=== PATIENT | female | born 1945 | race Caucasian/White ===

== ENCOUNTER → 2019-03-27 14:52 | Outpatient (BNVA) | payer MEDICARE, BC, SELFPAY | PROVIDERS: Family Provider Family Medicine; PCP Family Medicine; Referring Provider Family Medicine; Visit Provider Podiatrist Foot & Ankle Surgery | DX: M79.671 Pain in right foot (principal); M21.611 Bunion of right foot | CPT/HCPCS: 73630 ==

== ENCOUNTER → 2019-11-20 10:55 | Outpatient (BNVA) | payer MEDICARE, BC, SELFPAY | PROVIDERS: Family Provider Family Medicine; PCP Family Medicine; Referring Provider Dermatology; Visit Provider Dermatology | DX: Z12.83 Encounter for screening for malignant neoplasm of skin (principal); D22.9 Melanocytic nevi, unspecified; L82.1 Other seborrheic keratosis | CPT/HCPCS: 99203 ==

== ENCOUNTER 2020-01-23 08:00 | Emergency (ER) | payer MEDICARE, BC, SELFPAY ==
--- NOTE | 2020-01-23 08:09 | XR_ITS ---
WS: [id number] XR chest 1V portable [id number] REASON FOR EXAM: syncope FINDINGS: No prior examination for comparison. Mild tortuosity thoracic aorta. The heart is at the upper limits of normal in size. There are interstitial changes in both lung bases and a vague area of density in the periphery of the right midlung field. No findings of pleural fluid. Moderate to severe degenerative spondylosis in the mid and lower thoracic spine. XR/XR chest 1V portable [id number] IMPRESSION: Infiltrative changes of unknown chronicity. While the lower lobe changes may be chronic the area in the periphery of the right midlung is of concern for an ea rly pneumonitis.
--- NOTE | 2020-01-23 08:10 | ECG_ITS ---
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
[2020-01-23 08:38] VITALS: BP 173/79; PULSE 66; RESP 18; TEMP 37.7; O2SAT 89; BMI 38.9
[2020-01-23 08:47] LABS: Basophils % 0.2 %; Hematocrit 42.9 % (37.0-47.0); Lymphocytes # 1.3 10^3/uL (0.8-4.8); Mean Corpuscular HGB Conc 32.6 g/dL (30.0-36.0); Mean Corpuscular Hemoglobin 28.7 pg (28.0-34.0); Mean Corpuscular Volume 88.1 fL (81-99); Mean Platelet Volume 10.7 fL (7.4-10.4); Monocytes # 0.6 10^3/uL (0.2-0.9); Monocytes % 9.7 %; Neutrophils # 3.91 10^3/uL (1.8-7.7); Neutrophils % 67.9 %; Nucleated Red Blood Cells % 0 %; Platelet Count 187 10^3/cmm (130-400); Red Blood Count 4.87 10^6/uL (4.1-5.3); Red Cell Distribution Width 13.5 % (12.1-15.1); White Blood Count 5.8 10^3/uL (4.0-10.0)
[2020-01-23 08:48] VITALS: BP 173/79; PULSE 61; RESP 16; TEMP 37.6; O2SAT 95
--- NOTE | 2020-01-23 08:48 | PC.NURSE ---
Denies pain, generalized weakness.
[2020-01-23 08:58] LABS: Alanine Aminotransferase 33 U/L (0-33); Albumin Level 3.9 g/dL (3.5-5.2); Alkaline Phosphatase 93 IU/L (35-105); Aspartate Amino Transferase 36 U/L (0-32); Blood Urea Nitrogen 7 mg/dL (8-23); C Reactive Protein 17.1 mg/L (0.0-4.9); Calcium 8.4 mg/dL (8.5-10.5); Carbon Dioxide 25 mmol/L (22-29); Chloride 101 mmol/L (98-107); Globulin 2.6 g/dL (1.3-4.6); Glucose 125 mg/dL (65-115); Osmolality Calculated 283 mOsm/kg (285-295); Sodium 137 mmol/L (136-145); Total Bilirubin 0.4 mg/dL (0.15-1.2); Total Protein 6.5 g/dL (6.6-8.7)
[2020-01-23 09:00] LABS: Troponin(5th) Baseline 7 ng/L (0-10)
[2020-01-23 09:17] VITALS: BP 170/83; PULSE 57; RESP 16; O2SAT 95
--- NOTE | 2020-01-23 09:18 | PC.NURSE ---
Resting with light off. No acute distress. Continue to monitor
[2020-01-23 09:45] LABS: Erythrocyte Sedimentation Rate 22 mm/hr (0-15)
--- NOTE | 2020-01-23 10:00 | ED_ITS ---
HPI - SOB/Dyspnea General: Chief Complaint: Shortness of Breath/Dyspnea Stated Complaint: covid +/nausea/sore throat Time Seen by Provider: 01/23/20 08:03 History of Present Illness: HPI Narrative: 75-year-old female presents to the emergency room with complaints of testing positive for Covid 1 week ago. She is having increasing shortness of breath. Also had nausea vomiting sore throat. She is not had any diarrhea. No dysuria urgency or frequency. Denies any chest pain she has had a cough but has not been productive at all. She does continue to have low-grade fever with this as well. MD elicited complaint: shortness of breath and cough Pertinent past history: diabetes and other (Hypertension, obesity) Onset (ago): week(s) (1) Context: recent illness (Diagnosed with COVID-19 7 days ago) Timing: constant Severity: moderate Exacerbating factors: exertion and coughing Relieving factors: oxygen and rest Known history of: diabetes and other (Hypertension) Associated symptoms: Deny abdominal pain, chest congestion, chest pain, cough, diaphoresis, dizziness, extremity pain, fever(s), hemoptysis, lightheadedness, myalgias, nausea, orthopnea, palpitations, paresthesias, polydipsia, polyuria, rash, sense of impending doom, syncope or vomiting Treatment prior to arrival: none Review of Systems Const: Denies: fever(s) or diaphoresis ENMT: Denies: throat pain, ear or mastoid pain, nasal discharge or nasal congestion Card: Denies: chest pain, palpitations, lightheadedness, syncope or orthopnea Resp: Denies: hemoptysis or chest congestion GI: Denies: abdominal pain, nausea or vomiting : Denies: flank pain, difficulty voiding, dysuria, urinary frequency or urinary urgency Musc: Denies: extremity pain Skin/Breast: Denies: rash or pruritus Neuro: Denies: dizziness Endo: Denies: polyuria or polydipsia PFS ED PFSH: Medical History (Updated 01/23/20 @ 11:56 by Raj Wren DO) Back pain CAD (coronary artery disease) Diabetes mellitus Dyslipidemia Hypertension Surgical History S/P coronary artery stent placement Family History Other Cancer Diabetes Myocardial infarction Social History Smoking and tobacco status: never smoked Second hand smoke exposure: Yes Alcohol intake: never Additional social history: 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) Physical Exam Const: COMMON NORMALS: no acute distress GENERAL APPEARANCE: cooperative and comfortable ORIENTATION/CONSCIOUSNESS: Yes awake, Yes oriented to person, Yes oriented to place and Yes oriented to time HENMT: COMMON NORMALS: normocephalic, atraumatic and hearing grossly normal bilaterally HEAD & SCALP: normocephalic and atraumatic Neck/C-Spine: COMMON NORMALS: no JVD Resp: COMMON NORMALS: normal respiratory effort, No retractions, No use of accessory muscles and clear to auscultation bilaterally AUSCULTATION: clear to auscultation bilaterally Cardio: COMMON NORMALS: no JVD, regular rate, regular rhythm and No murmurs present (Cardio) RATE: regular rate RHYTHM: regular rhythm GI: COMMON NORMALS: Soft to palpation and No hepatosplenomegaly present AUSCULTATION: Yes normoactive bowel sounds PALPATION: Yes Soft to palpation, No Tenderness to palpation present (GI), No Guarding due to palpation present (GI) and Yes No hepatosplenomegaly present Extremity: COMMON NORMALS: normal to inspection, capillary refill normal, no clubbing, cyanosis or edema, no calf tenderness and no pedal edema Neuro: SENSORIUM/ORIENTATION: Yes oriented to person, Yes oriented to place and Yes oriented to time Skin: COMMON NORMALS: no rashes or lesions noted GENERAL SKIN EXAM: no rashes or lesions noted Course Vital Signs: Vital signs: Vital Signs Temperature 99.7 F H 01/23/20 08:48 Pulse Rate 56 L 01/23/20 11:25 Respiratory Rate 18 01/23/20 11:25 Blood Pressure 161/84 01/23/20 11:25 Pulse Oximetry 97 01/23/20 11:25 MDM - SOB/Dyspnea MDM Narrative: Medical decision making narrative: Reviewed findings with the patient. Consistent with Covid pneumonitis. At this point she is doing well on supplemental oxygen we will discharge her home on supplemental oxygen she already has an O2 sat monitor at home. Advised to return if she has worsening symptoms will case management make a follow-up for 2 days from now. Lab Data: Labs: Lab Results 01/23/20 01/23/20 01/23/20 Range/Units 08:38 08:38 08:38 WBC 5.8 (4.0-10.0) 10^3/ uL RBC 4.87 (4.1-5.3) 10^6/u L Hgb 14.0 (11.5-15.3) g/dL Hct 42.9 (37.0-47.0) % MCV 88.1 (81-99) fL MCH 28.7 (28.0-34.0) pg MCHC 32.6 (30.0-36.0) g/dL RDW 13.5 (12.1-15.1) % Plt Count 187 (130-400) 10^3/c mm MPV 10.7 H (7.4-10.4) fL Neut % (Auto) 67.9 % Lymph % (Auto) 22.0 % [facility] % (Auto) 9.7 % Eos % (Auto) 0.0 % Baso % (Auto) 0.2 % Neut # (Auto) 3.91 (1.8-7.7) 10^3/u L Lymph # (Auto) 1.3 (0.8-4.8) 10^3/u L [facility] # (Auto) 0.6 (0.2-0.9) 10^3/u L Eos # (Auto) 0.0 (0.0-0.8) 10^3/u L Baso # (Auto) 0.0 (0.0-0.1) 10^3/u L Nucleated RBC % (a uto) 0 % Nucleated RBCs # 0.0 /100WBC ESR 22 H (0-15) mm/hr D-Dimer 0.53 (0-0.59) ug/mIFE U Sodium (136-145) mmol/L Potassium (3.5-5.1) mmol/L Chloride (98-107) mmol/L Carbon Dioxide (22-29) mmol/L Anion Gap (5-19) BUN (8-23) mg/dL Creatinine (0.5-0.9) mg/dL GFR Calculation Glucose (65-115) mg/dL Calculated Osmolal ity (285-295) mOsm/k g Lactate (0.5-2.2) mmol/L Calcium (8.5-10.5) mg/dL Total Bilirubin (0.15-1.2) mg/dL AST (0-32) U/L ALT (0-33) U/L Alkaline Phosphata se (35-105) IU/L Troponin T Baselin e (0-10) ng/L Troponin T 120 Min havasupai (0-10) ng/L Delta Troponin T (0-10) ABS# C-Reactive Protein (0.0-4.9) mg/L Total Protein (6.6-8.7) g/dL Albumin (3.5-5.2) g/dL Globulin (1.3-4.6) g/dL 01/23/20 01/23/20 01/23/20 Range/Units 08:38 08:38 08:38 WBC (4.0-10.0) 10^3/ uL RBC (4.1-5.3) 10^6/u L Hgb (11.5-15.3) g/dL Hct (37.0-47.0) % MCV (81-99) fL MCH (28.0-34.0) pg MCHC (30.0-36.0) g/dL RDW (12.1-15.1) % Plt Count (130-400) 10^3/c mm MPV (7.4-10.4) fL Neut % (Auto) % Lymph % (Auto) % [facility] % (Auto) % Eos % (Auto) % Baso % (Auto) % Neut # (Auto) (1.8-7.7) 10^3/u L Lymph # (Auto) (0.8-4.8) 10^3/u L [facility] # (Auto) (0.2-0.9) 10^3/u L Eos # (Auto) (0.0-0.8) 10^3/u L Baso # (Auto) (0.0-0.1) 10^3/u L Nucleated RBC % (a uto) % Nucleated RBCs # /100WBC ESR (0-15) mm/hr D-Dimer (0-0.59) ug/mIFE U Sodium 137 (136-145) mmol/L Potassium 4.0 (3.5-5.1) mmol/L Chloride 101 (98-107) mmol/L Carbon Dioxide 25 (22-29) mmol/L Anion Gap 15.0 (5-19) BUN 7 L (8-23) mg/dL Creatinine 0.7 (0.5-0.9) mg/dL GFR Calculation Not Reportable Glucose 125 H (65-115) mg/dL Calculated Osmolal ity 283 L (285-295) mOsm/k g Lactate 1.4 (0.5-2.2) mmol/L Calcium 8.4 L (8.5-10.5) mg/dL Total Bilirubin 0.4 (0.15-1.2) mg/dL AST 36 H (0-32) U/L ALT 33 (0-33) U/L Alkaline Phosphata se 93 (35-105) IU/L Troponin T Baselin e 7 (0-10) ng/L Troponin T 120 Min havasupai (0-10) ng/L Delta Troponin T (0-10) ABS# C-Reactive Protein 17.1 H (0.0-4.9) mg/L Total Protein 6.5 L (6.6-8.7) g/dL Albumin 3.9 (3.5-5.2) g/dL Globulin 2.6 (1.3-4.6) g/dL 11/25/20 Range/Units 11:20 WBC (4.0-10.0) 10^3/ uL RBC (4.1-5.3) 10^6/u L Hgb (11.5-15.3) g/dL Hct (37.0-47.0) % MCV (81-99) fL MCH (28.0-34.0) pg MCHC (30.0-36.0) g/dL RDW (12.1-15.1) % Plt Count (130-400) 10^3/c mm MPV (7.4-10.4) fL Neut % (Auto) % Lymph % (Auto) % [facility] % (Auto) % Eos % (Auto) % Baso % (Auto) % Neut # (Auto) (1.8-7.7) 10^3/u L Lymph # (Auto) (0.8-4.8) 10^3/u L [facility] # (Auto) (0.2-0.9) 10^3/u L Eos # (Auto) (0.0-0.8) 10^3/u L Baso # (Auto) (0.0-0.1) 10^3/u L Nucleated RBC % (a uto) % Nucleated RBCs # /100WBC ESR (0-15) mm/hr D-Dimer (0-0.59) ug/mIFE U Sodium (136-145) mmol/L Potassium (3.5-5.1) mmol/L Chloride (98-107) mmol/L Carbon Dioxide (22-29) mmol/L Anion Gap (5-19) BUN (8-23) mg/dL Creatinine (0.5-0.9) mg/dL GFR Calculation Glucose (65-115) mg/dL Calculated Osmolal ity (285-295) mOsm/k g Lactate (0.5-2.2) mmol/L Calcium (8.5-10.5) mg/dL Total Bilirubin (0.15-1.2) mg/dL AST (0-32) U/L ALT (0-33) U/L Alkaline Phosphata se (35-105) IU/L Troponin T Baselin e (0-10) ng/L Troponin T 120 Min havasupai 7.91 (0-10) ng/L Delta Troponin T 0.91 (0-10) ABS# C-Reactive Protein (0.0-4.9) mg/L Total Protein (6.6-8.7) g/dL Albumin (3.5-5.2) g/dL Globulin (1.3-4.6) g/dL Discharge Plan Discharge Patient Disposition: Home Clinical Impression: COVID-19 virus infection, CAD (coronary artery disease), Diabetes mellitus, Hypertension Condition: Stable Prescriptions: New promethazine 25 mg tablet 25 mg PO Q6H PRN (Reason: nausea and vomiting) Qty: 20 RF: 0 No Action aspirin [Adult Low Dose Aspirin] 81 mg tablet,delayed release (DR/EC) 81 mg PO DAILY RF: 0 metformin 500 mg tablet extended release 24 hr 500 mg PO DAILY RF: 0 acetaminophen [Tylenol Extra Strength] 500 mg tablet 500 mg PO Q4H PRNRF: 0 calcium-mag oxide-vitamin D3 250-125-100 mg-mg-unit capsule 1 cap PO BID RF: 0 lisinopril 20 mg tablet 20 mg PO DAILY RF: 0 fluticasone propionate [Flonase Allergy Relief] 50 mcg/actuation spray,suspension 1 spray INTRANASAL BID PRNRF: 0 carvedilol 6.25 mg tablet 6.25 mg PO BID RF: 0 Discharge Orders: Discharge Order (Routine); Ordered 01/23/20 Ordered By: Raj Wren Other Ambulatory Orders: DME: Oxygen (Order) Location: None Selected Ordered By: Raj Wren Referrals: Dayday Cerda MD [Primary Care Provider] - Coding Level of Care Code ED Plunger Scoop Operator for Chg Fwd Exam Comprehensive
[2020-01-23 10:01] LABS: D Dimer 0.53 ug/mIFEU (0-0.59)
--- NOTE | 2020-01-23 10:10 | ECG_ITS ---
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
[2020-01-23 10:13] LABS: Lactate (Lactic Acid level) 1.4 mmol/L (0.5-2.2)
--- NOTE | 2020-01-23 10:14 | CT_ITS ---
WS: [id number] CT CHEST ANGIOGRAPHY WITH REFORMATS HISTORY: Shortness of breath/ Covid pneumonitis TECHNIQUE: Contiguous axial images are obtained through the chest during arterial injection of intrav enous contrast. Images are reconstructed to evaluate the pulmonary arteries. MIP imaging also reviewe d. All CT scans at [facility] use at least one of these dose optimization techniques: aut omated exposure control; mA and/or kV adjustment per patient size (includes targeted exams where dose is matched to clinical indication); or iterative reconstruction. CONTRAST: Omnipaque 350; 95 mL IV. DLP: 1177.83 mGy.cm COMPARISON: None available. Suboptimal opacification of the pulmonary arteries due to poor injection timing. Centrally there is n o pulmonary embolism. Opacification becomes limited beyond the segmental branches. No pulmonary embol ism is identified. Normal size pulmonary artery. Normal size aorta. Moderate enlargement of the heart chambers. LEFT anterior descending coronary artery stent is present. No pericardial or pleural effus ions. Scattered areas of groundglass attenuation are ill-defined in a peripheral distribution. There is a b asilar predominance. Some of the groundglass attenuations are becoming more consolidated. Numerous indeterminate size mediastinal and hilar lymph nodes. Largest lymph node at the LEFT hilum m easures 10 mm in short axis diameter. These are probably reactive. Small hiatal hernia. Mild hepatomegaly. Mild increase in the thoracic kyphosis. Osteopenia. No osteoblastic or osteolytic bone disease. CT/CT angio chest PE protcl [id number] IMPRESSION: 1. Suboptimal opacification of pulmonary arteries. Centrally there is no pulmo nary embolism. 2. Multi lobar groundglass opacifications in a distribution consistent with Co vid 19. 3. Indeterminate mediastinal and hilar adenopathy. 4. Mild cardiomegaly.
--- NOTE | 2020-01-23 10:42 | PC.NURSE ---
No pain, generalized weakness
[2020-01-23 11:25] VITALS: BP 161/84; PULSE 56; RESP 18; O2SAT 97
[2020-01-23 11:48] LABS: Troponin 5 2HR 7.91 ng/L (0-10); Troponin 5 2HR Delta 0.91 ABS# (0-10)
[2020-01-23] MEDS: iohexol 350 mg/mL 100 mL Btl IV (12:00)
[2020-01-23 12:34] VITALS: O2SAT 88; O2SAT 89; O2SAT 94
[2020-01-23 13:03] VITALS: BP 171/78; PULSE 63; RESP 18; O2SAT 94
--- NOTE | 2020-01-23 13:31 | DCPLANNER ---
it communications manager was asked to schedule a follow up appointment for patient with primary care and home O2. it communications manager called patients primary care physician, spoke with Jackelyn, gave clinic patients appointment information. A follow up appointment was scheduled for Tuesday, January 28, 2020 at 3:[address] Cerda. it communications manager informed patient of the scheduled appointment. it communications manager spoke with patient thru door about what provider patient would want to use for her home oxygen needs. Patient stated could use [facility] case therapist signed [facility] due to patient being COVID positive. it communications manager faxed patients information to [employer] company will bring oxygen to patients room.
--- NOTE | 2020-01-30 14:30 | DCPLANNER ---
Patient had a follow up appointment scheduled with Dr. Cerda at [facility] on 01.27.20 - patient did attend appointment.
== END 2020-01-23 15:36 | disposition home or self-care (01) ==
PROVIDERS: Nurse Practitioner Family; Emergency Provider Family Medicine; PCP Family Medicine
DX: U07.1 COVID-19 (principal); I25.10 Atherosclerotic heart disease of native coronary artery without angina pectoris; E11.9 Type 2 diabetes mellitus without complications; I10 Essential (primary) hypertension; Z79.82 Long term (current) use of aspirin; E78.5 Hyperlipidemia, unspecified; Z77.22 Contact with and (suspected) exposure to environmental tobacco smoke (acute) (chronic)
CPT/HCPCS: 12345; 71045; 71275; 80053; 83605; 84484; 85025; 85378; 85651; 86140; 93005; 99283; 99284; Q9967

== ENCOUNTER 2020-02-10 14:27 | Emergency (ER) | payer MEDICARE, BC, SELFPAY ==
--- NOTE | 2020-02-10 14:31 | ECG_ITS ---
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
--- NOTE | 2020-02-10 14:31 | XRR_ITS ---
PROCEDURE INFORMATION: Exam: XR Chest, 1 View Exam date and time: 02/10/2020 2:32 PM Age: 74 years old Clinical indication: Chest pain; Prior surgery; Surgery type: Stent; Additional info: Cp TECHNIQUE: Imaging protocol: XR of the chest Views: 1 view. COMPARISON: CR XR chest 1V portable [id number] 01/23/2020 8:13 AM FINDINGS: Lungs: A large amount of overlying soft tissue in this patient makes evaluation of the lung bases sub optimal. There are hazy bibasilar opacities. There is a 14 mm hazy opacity at the lateral aspect of the right mid lung field which appears less prominent when compared to the prior study. Pleural space: Unremarkable. No pleural effusion. No pneumothorax. Heart/Mediastinum: Unremarkable. No cardiomegaly. Bones/joints: Unremarkable. XR/XR chest 1V portable [id number] IMPRESSION: 1. A large amount of overlying soft tissue in this patient makes evaluation of the lung bases sub optimal. There are hazy bibasilar opacities which may be a result of the overlying soft tissue. Pneumonia cannot be excluded. 2. There is a 14 mm hazy opacity at the lateral aspect of the right mid lung field which appears less prominent when compared to the prior study. Differential includes scar tissue and/or resolving pneumonia.
[2020-02-10 14:40] VITALS: BP 180/88; PULSE 71; RESP 14; TEMP 36.3; O2SAT 96; BMI 37.3
--- NOTE | 2020-02-10 14:56 | ED_ITS ---
HPI - Chest Pain General: Chief Complaint: Chest Pain Stated Complaint: BP 217/101, DIARRHEA, CP Time Seen by Provider: 02/10/20 14:52 Source: patient Mode of arrival: ambulatory Limitations: no limitations History of Present Illness: HPI narrative: Very pleasant nondistressed 74-year-old female presents to the emergency department for concerns of chest tightness that is midsternal she states it is not severe currently. She states she been sitting in her recliner and felt like her head was swimming and checked her blood pressure at home and it was over 200 systolic. Currently it is already come down without intervention. She does have a history of hypertension. She states that her chest has been sore and some shortness of breath ever since being diagnosed with Covid last month she denies fever states that she overall feels like she has recovered from this. We did discuss how the sequelae from this infection can cause chest tightness and persistent shortness of breath as well as tachycardia resulting in potential hypertension. She is not diaphoretic she is again in no acute distress. She agrees with plan to be evaluated she simply wants her heart checked out. Advised if all is well in the emergency department I would like her to keep a blood pressure log and follow-up with primary care for potential echocardiogram secondary to coronavirus effects. Patient voices understanding and agrees. MD complaint: chest discomfort Timing of current episode: constant Onset: during rest Pain location: substernal Pain radiation: none Severity: mild Quality: tightness Context: recent illness Associated symptoms: Reports no associated symptoms; Deny abdominal pain, dyspnea, fever(s), nausea, palpitations or vomiting Risk Factors: Coronary artery disease risk factors: hypertension Review of Systems Const: Denies: fever(s), chills, change in appetite or malaise Eyes: Denies: change in vision, blurry vision, eye discharge or eye redness ENMT: Denies: throat pain, uvular edema, odynophagia, mouth pain, dental pain, nasal congestion or sinus pain Card: Reports: chest pain, lightheadedness and dyspnea on exertion; Denies: palpitations or irregular heart rhythm Resp: Denies: dyspnea, productive cough, wheezing or hemoptysis GI: Denies: abdominal pain, nausea, vomiting, diarrhea, constipation or fecal incontinence : Denies: flank pain, difficulty voiding, dysuria, urinary frequency, urinary urgency or urinary hesitancy Musc: Denies: neck pain, back pain, extremity pain or extremity swelling Skin/Breast: Denies: rash, pruritus, erythema, jaundice or dry skin Neuro: Reports: headache(s); Denies: numbness in extremities, weakness in extremities, sensory changes, lack of coordination or difficulty walking Psych: Denies: anxiety, depression, mood swings, panic attacks, sleeping less, suicidal ideation or homicidal ideation Endo: Denies: polyuria, polydipsia or tired all the time [place]/Lymph: Denies: easy bruising, petechiae or enlarged lymph nodes All/Imm: Denies: urticaria, throat swelling, facial swelling, acute wheezing or seasonal rhinorrhea PFSH ED PFSH: Medical History (Updated 02/10/20 @ 16:06 by Pau Park DO) Back pain CAD (coronary artery disease) Diabetes mellitus Dyslipidemia Hypertension Surgical History S/P coronary artery stent placement Family History Other Cancer Diabetes Myocardial infarction Social History Smoking and tobacco status: never smoked Second hand smoke exposure: Yes Alcohol intake: never Additional social history: 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) Physical Exam Const: COMMON NORMALS: no acute distress, patient oriented x3, no limitations, healthy appearing, alert and well nourished GENERAL APPEARANCE: cooperative, comfortable, well kempt and well developed ORIENTATION/CONSCIOUSNESS: Yes awake, Yes oriented to person, Yes oriented to place and Yes oriented to time HENMT: COMMON NORMALS: normocephalic, atraumatic, hearing grossly normal bilaterally, external ears normal, EAC's normal, TM's normal bilaterally, Normal external nose present, Normal nasal mucous membranes and turbinates present, moist oral mucous membranes, oropharynx normal, dentition normal and gingiva normal HEAD & SCALP: normal to inspection, normocephalic and atraumatic FACE & SINUS: normal facial exam NOSE: Normal external nose present and Normal nasal mucous membranes and turbinates present EXTERNAL EAR: Yes external ears normal EXTERNAL AUDITORY CANAL: EAC's normal TYMPANIC MEMBRANE: TM's normal bilaterally MOUTH: Normal oral and palatal mucosa present, lip normal and tongue normal THROAT: no uvular edema Eye: COMMON NORMALS: Equal, round and reactive pupils present, EOMs intact bilaterally, conjunctivae normal, no scleral icterus and normal visual boss by confrontation GENERAL EYE: appearance normal, both eyes and all related structures and normal light reflex VISUAL ACUITY: Yes acuity normal ALIGNMENT: Yes alignment normal PERIORBITAL: periorbital findings normal EYELID: eyelids normal CONJUNCTIVA: Yes conjunctivae normal SCLERA: sclerae normal PUPIL: Yes Equal, round and reactive pupils present and Yes Pupil accommodation reflex normal DIRECT OPHTHALMOSCOPY: Yes normal light reflex Neck/C-Spine: COMMON NORMALS: full ROM, no lymphadenopathy, supple, no meningeal signs and no JVD GENERAL: Yes normal visual inspection CAROTIDS: Yes normal carotid upstroke CERVICAL SPINE: Yes cervical ROM normal Lymph: LYMPHATIC: no lymphadenopathy noted Chest: COMMONS NORMALS: normal inspection of the chest CHEST: Yes Symmetrical chest wall rise Resp: COMMON NORMALS: normal respiratory effort, No retractions, No use of accessory muscles and clear to auscultation bilaterally EFFORT & INSPECTION: Yes able to speak in complete sentences and Yes symmetric chest movement AUSCULTATION: clear to auscultation bilaterally Cardio: COMMON NORMALS: no JVD, regular rate, regular rhythm, S1 normal heart sound present, S2 normal heart sound present, No murmurs present (Cardio) and Peripheral pulses 2+ throughout RATE: regular rate RHYTHM: regular rhythm HEART SOUNDS: S1 normal heart sound present and S2 normal heart sound present PERIPHERAL PULSES: Peripheral pulses 2+ throughout GI: COMMON NORMALS: Normal to inspection, nondistended, normoactive bowel sounds present and non-tender : COMMON NORMALS: Yes no CVA tenderness BLADDER/KIDNEY EXAM: Yes no CVA tenderness Back/Pelvis: COMMON NORMALS: no CVA tenderness, thoracic and lumbar spine nor mal to inspection, no thoracic nor lumbar tenderness and thoraco-lumbar ROM normal Extremity: COMMON NORMALS: normal to inspection, full ROM, capillary refill normal, no calf tenderness and no pedal edema Neuro: COMMON NORMALS: patient oriented x3, CN's II-XII intact bilaterally, moves all extremities, no focal motor deficits, no sensory deficits noted and gait normal SENSORIUM/ORIENTATION: Yes alert, Yes oriented to person, Yes oriented to place and Yes oriented to time MENINGEAL SIGNS: Yes no meningeal signs SPEECH: speech normal GAIT: Yes Normal gait present MOTOR EXAM: 5/5 motor strength present throughout, Pronator motor function not present and no tremor noted Psych: COMMON NORMALS: mental status grossly normal, Normal thought process present, cooperative, normal affect, speech normal and activity/motor behavior normal APPEARANCE: Yes well kempt SPEECH: Yes normal speech THOUGHT PROCESS: Normal thought process present THOUGHT CONTENT: Yes Normal thought content present INSIGHT: Good insight present (Psych) Skin: COMMON NORMALS: no rashes or lesions noted, no wounds, turgor normal and no jaundice GENERAL SKIN EXAM: no rashes or lesions noted and turgor normal Course ED course: Patient doing well in the department. Initial troponin negative due to duration I do not feel a delta troponin would change disposition. Patient agrees with plan to go home, will provide Ventolin inhaler and zinc and brief course of steroids secondary to bronchitic type picture. Vital Signs: Vital signs: Vital Signs Temperature 97.3 F L 02/10/20 14:40 Pulse Rate 71 02/10/20 14:40 Respiratory Rate 14 02/10/20 14:40 Blood Pressure 180/88 02/10/20 14:40 Pulse Oximetry 96 02/10/20 14:40 MDM - Chest Pain MDM Narrative: Medical decision making narrative: Covid sequelae, pneumonia, bronchitis Lab Data: Labs: Lab Results 02/10/20 02/10/20 02/10/20 Range/Units 15:10 15:10 15:10 WBC 9.8 (4.0-10.0) 10^3/ uL RBC 4.79 (4.1-5.3) 10^6/u L Hgb 13.6 (11.5-15.3) g/dL Hct 42.2 (37.0-47.0) % MCV 88.1 (81-99) fL MCH 28.4 (28.0-34.0) pg MCHC 32.2 (30.0-36.0) g/dL RDW 13.5 (12.1-15.1) % Plt Count 265 (130-400) 10^3/c mm MPV 10.7 H (7.4-10.4) fL Neut % (Auto) 67.7 % Lymph % (Auto) 22.2 % [place] % (Auto) 7.6 % Eos % (Auto) 1.8 % Baso % (Auto) 0.4 % Neut # (Auto) 6.65 (1.8-7.7) 10^3/u L Lymph # (Auto) 2.2 (0.8-4.8) 10^3/u L [place] # (Auto) 0.8 (0.2-0.9) 10^3/u L Eos # (Auto) 0.2 (0.0-0.8) 10^3/u L Baso # (Auto) 0.0 (0.0-0.1) 10^3/u L Nucleated RBC % (a uto) 0 % Nucleated RBCs # 0.0 /100WBC Sodium 141 (136-145) mmol/L Potassium 4.1 (3.5-5.1) mmol/L Chloride 105 (98-107) mmol/L Carbon Dioxide 28 (22-29) mmol/L Anion Gap 12.1 (5-19) BUN 16 (8-23) mg/dL Creatinine 0.7 (0.5-0.9) mg/dL GFR Calculation Not Reportable Calculated Osmolal ity 295 (285-295) mOsm/k g Calcium 9.5 (8.5-10.5) mg/dL Total Bilirubin 0.4 (0.15-1.2) mg/dL AST 22 (0-32) U/L ALT 30 (0-33) U/L Alkaline Phosphata se 94 (35-105) IU/L Troponin T Baselin e 9 (0-10) ng/L Total Protein 6.8 (6.6-8.7) g/dL Albumin 3.8 (3.5-5.2) g/dL Globulin 3.0 (1.3-4.6) g/dL Imaging Data^: CXR: Attestation: I personally reviewed and interpreted this imaging study as follows: My impression: NAD EKG Data^: EKG 1: Attestation: I personally reviewed and interpreted this EKG as follows: EKG interpretation date: 02/10/20 EKG interpretation time: 14:55 Interpretation: Normal sinus rhythm, QRS normal at 73 rate 68 NC interval normal at 171 normal axis Discharge Plan Discharge Clinical Impression: Atypical chest pain Condition: Stable Prescriptions: New albuterol sulfate [ProAir HFA] 90 mcg/actuation HFA aerosol inhaler 2 inh inhalation Q8H PRN (Reason: shortness of breath or wheezing) Qty: 8.5 RF: 0 prednisone 50 mg tablet 50 mg PO DAILY 7 Days Qty: 7 RF: 0 No Action aspirin [Adult Low Dose Aspirin] 81 mg tablet,delayed release (DR/EC) 81 mg PO DAILY@06 RF: 0 fluticasone propionate [Flonase Allergy Relief] 50 mcg/actuation spray,suspension 1 - 2 spray INTRANASAL DAILY PRN (Reason: Allergy Symptoms) RF: 0 carvedilol 6.25 mg tablet 6.25 mg PO BID@,17 RF: 0 promethazine 25 mg tablet 25 mg PO Q6H PRN (Reason: nausea and vomiting) Qty: 20 RF: 0 metformin 500 mg tablet 500 mg PO DAILY@06 RF: 0 nystatin 100,000 unit/mL suspension See Rx Instructions .ROUTE .COMPLEX RF: 0 ondansetron HCl 4 mg tablet 4 mg PO Q6H PRN (Reason: Nausea) RF: 0 Calcium + D 600 mg(1,500mg) -200 unit Tablet 1 tab PO BID@,17 RF: 0 allopurinol 100 mg tablet 100 mg PO DAILY@06 RF: 0 diclofenac sodium 75 mg tablet,delayed release (DR/EC) 75 mg PO BID PRN (Reason: gout pain) RF: 0 zinc 50 mg Tablet 50 mg PO DAILY@06 RF: 0 lisinopril 40 mg tablet 40 mg PO DAILY@06 RF: 0 apple cider vinegar 300 mg Tablet 300 mg PO BID@, RF: 0 [place] 82-004-86-75-20 mg Capsule 1 cap PO BID@, RF: 0 Vitamin D3 125 mcg (5,000 unit) Tablet 125 mcg PO DAILY@06 RF: 0 Probiotic 15 billion cell Capsule, Sprinkle 1 cap PO DAILY@17 RF: 0 Discharge Orders: Discharge ED (Routine); Ordered 02/10/20 Ordered By: Pau [place] Referrals: Dayday Cerda MD [Primary Care Provider] - Discharge Diet: Usual diet Discharge Activity: Resume usual activity Patient Instructions: Chest Pain - Noncardiac Coding Level of Care Code 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
[2020-02-10 15:08] VITALS: BP 194/84; PULSE 76; RESP 19; O2SAT 95
[2020-02-10 15:33] LABS: Basophils % 0.4 %; Eosinophils # 0.2 10^3/uL (0.0-0.8); Eosinophils % 1.8 %; Hematocrit 42.2 % (37.0-47.0); Hemoglobin 13.6 g/dL (11.5-15.3); Lymphocytes # 2.2 10^3/uL (0.8-4.8); Lymphocytes % 22.2 %; Mean Corpuscular HGB Conc 32.2 g/dL (30.0-36.0); Mean Corpuscular Hemoglobin 28.4 pg (28.0-34.0); Mean Corpuscular Volume 88.1 fL (81-99); Mean Platelet Volume 10.7 fL (7.4-10.4); Monocytes # 0.8 10^3/uL (0.2-0.9); Monocytes % 7.6 %; Neutrophils # 6.65 10^3/uL (1.8-7.7); Neutrophils % 67.7 %; Nucleated Red Blood Cells % 0 %; Platelet Count 265 10^3/cmm (130-400); Red Blood Count 4.79 10^6/uL (4.1-5.3); Red Cell Distribution Width 13.5 % (12.1-15.1); White Blood Count 9.8 10^3/uL (4.0-10.0)
[2020-02-10 15:58] LABS: Alanine Aminotransferase 30 U/L (0-33); Albumin Level 3.8 g/dL (3.5-5.2); Alkaline Phosphatase 94 IU/L (35-105); Anion Gap 12.1 (5-19); Aspartate Amino Transferase 22 U/L (0-32); Blood Urea Nitrogen 16 mg/dL (8-23); Calcium 9.5 mg/dL (8.5-10.5); Carbon Dioxide 28 mmol/L (22-29); Chloride 105 mmol/L (98-107); Glucose 135 mg/dL (65-115); Osmolality Calculated 295 mOsm/kg (285-295); Potassium 4.1 mmol/L (3.5-5.1); Sodium 141 mmol/L (136-145); Total Bilirubin 0.4 mg/dL (0.15-1.2); Total Protein 6.8 g/dL (6.6-8.7)
[2020-02-10 16:01] LABS: Troponin(5th) Baseline 9 ng/L (0-10)
[2020-02-10 16:08] VITALS: BP 181/65; PULSE 70; RESP 23; O2SAT 92
== END 2020-02-10 16:27 | disposition home or self-care (01) ==
PROVIDERS: Emergency Medicine; Emergency Provider Emergency Medicine; PCP Family Medicine
DX: R07.89 Other chest pain (principal); Z79.82 Long term (current) use of aspirin; I25.10 Atherosclerotic heart disease of native coronary artery without angina pectoris; E11.9 Type 2 diabetes mellitus without complications; E78.5 Hyperlipidemia, unspecified; I10 Essential (primary) hypertension; Z77.22 Contact with and (suspected) exposure to environmental tobacco smoke (acute) (chronic)
CPT/HCPCS: 12345; 71045; 80053; 84484; 85025; 93005; 99282; 99283

== ENCOUNTER 2020-05-15 10:43 | Outpatient (CLI) | payer MEDICARE, BC, SELFPAY ==
--- NOTE | 2020-05-15 10:50 | US_ITS ---
WS: [id number] ULTRASOUND ABDOMEN LIMITED CLINICAL INFORMATION: RUQ ABDOMINAL PAIN COMPARISON: None. FINDINGS: Liver Size: Normal. Craniocaudal length: 15.3 cm. Echogenicity: Coarse with diffuse fatty infiltration Surface nodularity: None. Mass (size and location): None. Bile ducts Intrahepatic ducts: Normal. Common bile duct diameter: 0.5 cm. Gallbladder Suggestion of tiny shadowing gallbladder calculi. Gallbladder sludge: None. Gallbladder wall thickening: None. Pericholecystic fluid: None. Sonographic Braun sign: Absent. Pancreas Normal as visualized. Right kidney: Normal. Hydronephrosis: None. Size: 10.4 cm x 4.9 cm x 3.9 cm. Abdominal aorta and IVC Visualized portions are normal. Ascites: None. US/US abdomen limited [id number] IMPRESSION: 1. Mild diffuse fatty infiltration the liver. 2. Suggestion of tiny shadowing gallbladder calculi. No pericholecystic fluid or gallbladder wall thickening. Normal common bile duct. 3. No hydronephrosis in right kidney.
== END 2020-05-15 10:44 | disposition home or self-care (01) ==
LOC: US 10:44
PROVIDERS: PCP Family Medicine; Visit Provider Family Medicine
DX: R10.11 Right upper quadrant pain (principal); K76.0 Fatty (change of) liver, not elsewhere classified
CPT/HCPCS: 76705

== ENCOUNTER 2020-05-27 08:11 | Outpatient (CLI) | payer MEDICARE, BC, SELFPAY ==
--- NOTE | 2020-05-27 08:18 | NM_ITS ---
WS: [id number] NUCLEAR MEDICINE HIDA SCAN WITH GALLBLADDER EJECTION FRACTION HISTORY: RIGHT UPPER QUADRANT ABDOMINAL PAIN COMPARISON: None available. TECHNIQUE: The patient was intravenously injected with 7.3 mCi of TC99m Mebrofenin. Immediate imaging over the right upper quadrant was followed by 5 minute image and additional images for a total of 60 minutes. Normal uptake of radiotracer throughout the liver. Activity identified in the gallbladder at 20 minutes and well distended by 60 minutes. Activity in the proximal small bowel was seen by 20 minutes. Good washout of the radiotracer from the liver by 60 minutes. The patient then drank 8 ounces of Ensure Plus. Ejection fraction at 60 minutes was 75%. Normal GB ej ection fraction is 35-75%. Post fatty meal symptoms: None. NM/NM hepatobiliary w phar* [id number] IMPRESSION: 1. Normal HIDA scan. 2. Normal gallbladder ejection fraction.
== END 2020-05-27 08:12 | disposition home or self-care (01) ==
LOC: RAD 08:14
PROVIDERS: PCP Family Medicine; Visit Provider Family Medicine
DX: R10.11 Right upper quadrant pain (principal)
CPT/HCPCS: 78227; A9537

== ENCOUNTER 2020-06-06 07:56 | Outpatient (CLI) | payer MEDICARE, BC, SELFPAY ==
--- NOTE | 2020-06-06 08:11 | CT_ITS ---
WS: [id number] CT scan of the abdomen and pelvis with Oral and IV contrast. Additional two-dimensional coronal and s agittal reconstruction was performed. 06/06/2020 Clinical Data: ABDOMINAL PAIN Comparison: None. DLP: 1117.[address] scans at [facility] use at least one of these dose optimization techniques: automat ed exposure control; mA and/or kV adjustment per patient size (includes targeted exams where dose is matched to clinical indication); or iterative reconstruction. Findings: The lower lungs show no nodules, masses or effusions. The liver, gallbladder, spleen, adrenal glands and pancreas are normal. The kidneys show equal bilateral contrast excretion with no cyst or masses. The abdominal aorta is normal in size. No appendicitis or diverticulitis is seen. Oral contrast is in the stomach, small bowel and colon, an d there is no bowel dilatation. No abscess, adenopathy, ascites, mass, obstruction or free air is see n. The bladder is unremarkable. The uterus is normal No inguinal hernia is seen. The bones of the lower thorax, lumbar spine, pelvis, and hips show only L5-S1 disc narrowing. CT/CT abdomen pelvis w con* [id number] Impression: Negative CT scan of the abdomen and pelvis.
[2020-06-06] MEDS: iohexol 300 mg/mL 50 mL Btl PO (08:13)
[2020-06-06] MEDS: iohexol 300 mg/mL 100 mL Btl IV (09:41)
== END 2020-06-06 07:57 | disposition home or self-care (01) ==
PROVIDERS: PCP Family Medicine; Visit Provider Family Medicine
DX: R10.9 Unspecified abdominal pain (principal)
CPT/HCPCS: 74177; Q9967

== ENCOUNTER 2021-02-05 07:49 | Outpatient (CLI) | payer MEDICARE, BC, SELFPAY ==
--- NOTE | 2021-02-05 08:07 | USCV_ITS ---
Dia Cat Age: 75 Gender: F : 1945 Exam Date: 02/05/2021 08:27 Ordering Phys: Dayday Cerda MD Technologist: JACOB [place] [facility] [place]: Risk Factors: Previous Vascular Surgery: Right Brachial BP: / Left Brachial BP: / Right Left Velocity (cm/s) Spectral Plaque Velocity (cm/s) Spectral Plaque Syst/Diast Broadening Syst/Diast Broadening 125.70/17.60 Prox CCA 109.90/ 19.10 112.50/26.50 Mid CCA 121.30/ 20.90 70.70/ 19.40 Distal CCA 75.00 / 14.30 81.20/ 22.20 Prox ICA 70.30 / 18.40 86.30/ 23.90 Mid ICA 104.90/ 33.40 76.90/ 24.80 Distal ICA 98.70 / 26.40 160.40 ECA 137.80 0.77 ICA/CCA 0.86 Antegrade Vertebral Antegrade 50.00/ 13.10 cm/s 61.40/ 7.00 cm/s Tri Subclavian Tri 74.90 94.00 FINDINGS Comparison: none available. No significant elevation of systolic or diastolic velocities. Waveforms are normal. No significant amount of calcified plaque or intimal thickening identified. CONCLUSIONS Normal carotid doppler ultrasound. Dr. Linsey Baker DO (Electronically Signed) Final Date: 05 February 2021 15:04 S
== END 2021-02-05 07:50 | disposition home or self-care (01) ==
LOC: RAD 07:55
PROVIDERS: PCP Family Medicine; Visit Provider Family Medicine
DX: R09.89 Other specified symptoms and signs involving the circulatory and respiratory systems (principal)
CPT/HCPCS: 93880

== ENCOUNTER 2021-02-10 09:04 | Outpatient (CLI) | payer MEDICARE, BC, SELFPAY ==
--- NOTE | 2021-02-10 09:10 | XR_ITS ---
WS: [id number] XR hand RT min 3V* [id number] REASON FOR EXAM: R HAND PAIN FINDINGS: No fracture or dislocation. Mild narrowing of the joint space with subchondral sclerosis and small marginal osteophytes in the DI P and PIP joints of the fingers. Similar changes noted in the metacarpal phalangeal and carpal metaca rpal joint of the thumb. Moderate narrowing of the radial scaphoid joint with subchondral sclerosis in the radius. No erosions. No subluxations. No soft tissue abnormality. XR/XR hand RT min 3V* [id number] IMPRESSION: Osteoarthritis as above.
--- NOTE | 2021-02-10 09:10 | XR_ITS ---
WS: [id number] XR wrist RT min 3V* [id number] REASON FOR EXAM: RIGHT HAND PAIN FINDINGS: No fracture or focal bone lesion. Moderate narrowing of the radial scaphoid joint space. Subchondral sclerosis in the associated radius . No significant degenerative cystic change. No erosions. Remaining articulations within the wrist are unremarkable. No soft tissue abnormality. XR/XR wrist RT min 3V* [id number] IMPRESSION: Osteoarthritis like changes in the radial scaphoid joint as above.
--- NOTE | 2021-02-10 09:10 | XR_ITS ---
WS: [id number] XR knee LT 3V* [id number] REASON FOR EXAM: L KNEE PAIN FINDINGS: No fracture or focal bone lesion. Mild narrowing of the medial knee joint space with irregularity of the subarticular medial femoral co ndyle. Calcification in the medial collateral ligament adjacent to the medial femoral condyle. The lateral knee joint space and the patellofemoral joint spaces are relatively well-preserved. No soft tissue abnormality. 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
== END 2021-02-10 09:05 | disposition home or self-care (01) ==
LOC: RAD 09:07
PROVIDERS: PCP Family Medicine; Visit Provider Family Medicine
DX: M25.531 Pain in right wrist (principal); M17.12 Unilateral primary osteoarthritis, left knee; M19.041 Primary osteoarthritis, right hand
CPT/HCPCS: 73110; 73130; 73562

== ENCOUNTER 2021-04-06 06:00 | Outpatient (RCR) | payer MEDICARE, BC, SELFPAY | END 2021-04-27 23:59 | disposition home or self-care (01) | LOC: SPT 06:00 | PROVIDERS: PCP Family Medicine; Referring Provider Family Medicine; Visit Provider Family Medicine | DX: M25.562 Pain in left knee (principal) | CPT/HCPCS: 97110; 97161 ==

== ENCOUNTER 2021-06-26 13:27 | Outpatient (RCR) | payer MEDICARE, BC, SELFPAY | END 2021-06-27 23:59 | disposition home or self-care (01) | LOC: SPT 13:27 | PROVIDERS: PCP Family Medicine; Referring Provider Family Medicine; Visit Provider Family Medicine | DX: M25.562 Pain in left knee (principal) | CPT/HCPCS: 97161 ==

== ENCOUNTER 2021-06-28 06:00 | Outpatient (RCR) | payer MEDICARE, BC, SELFPAY | END 2021-07-28 23:59 | disposition home or self-care (01) | LOC: SPT 06:00 | PROVIDERS: PCP Family Medicine; Referring Provider Family Medicine; Visit Provider Family Medicine | DX: M25.562 Pain in left knee (principal) | CPT/HCPCS: 97110 ==

== ENCOUNTER → 2021-07-15 13:50 | Outpatient (BNVA) | payer MEDICARE, BC, SELFPAY | PROVIDERS: PCP Family Medicine; Visit Provider Clinical Nurse Specialist Adult Health | DX: J06.9 Acute upper respiratory infection, unspecified (principal) | CPT/HCPCS: 87400; 87426 ==

== ENCOUNTER 2021-07-29 06:00 | Outpatient (RCR) | payer MEDICARE, BC, SELFPAY | END 2021-08-27 23:59 | disposition home or self-care (01) | LOC: SPT 06:00 | PROVIDERS: PCP Family Medicine; Referring Provider Family Medicine; Visit Provider Family Medicine | DX: M25.562 Pain in left knee (principal) | CPT/HCPCS: 97110 ==

== ENCOUNTER → 2021-08-05 07:56 | Outpatient (BNVA) | payer MEDICARE, BC, SELFPAY | PROVIDERS: PCP Family Medicine; Referring Provider Family Medicine; Visit Provider Orthopaedic Surgery | DX: S83.92XA Sprain of unspecified site of left knee, initial encounter (principal); W19.XXXA Unspecified fall, initial encounter; M25.562 Pain in left knee | CPT/HCPCS: 99203 ==

== ENCOUNTER 2021-08-28 06:00 | Outpatient (RCR) | payer MEDICARE, BC, SELFPAY | END 2021-09-27 23:59 | disposition home or self-care (01) | LOC: SPT 06:00 | PROVIDERS: PCP Family Medicine; Referring Provider Family Medicine; Visit Provider Family Medicine | DX: M25.562 Pain in left knee (principal) | CPT/HCPCS: 97110 ==

== ENCOUNTER 2021-09-29 08:18 | Outpatient (CLI) | payer MEDICARE, BC, SELFPAY ==
--- NOTE | 2021-09-29 08:45 | MR_ITS ---
WS: [id number] MRI LEFT KNEE HISTORY: Trauma January 2021. Medial knee pain. COMPARISON: Radiograph 02/10/2021 Anterior cruciate ligament: Intact. Posterior cruciate ligament: Intact. Medial collateral ligament: Marked thickening and abnormal signal in the proximal tibial collateral l igament. There is a high-grade if not complete tear involving the proximal MCL. There is also associa aida marrow edema and loss of the normal cortex of the medial femoral condyle at the site of the high- grade tear. Distally MCL appears intact. Posterior lateral corner structures: Intact. Medial menisci: Mild central increased signal in the posterior horn but no definite tear to an articu lar surface. Anterior horn normal. Lateral meniscus: Mild intrasubstance degeneration in the posterior horn. Fraying along the superior articular surface but no tear is identified. Extensor mechanism: Distal quadriceps tendon is normal. Focal increased signal in the distal patellar tendon. No tear. Fluid and soft tissue: Small joint effusion. Small amount of edema surrounding the knee. No Yao's c yst. Osseous and articular structures: Patellofemoral compartment: No significant loss of cartilage. Normal position of the patella. Medial patellar retinaculum is partially torn where it joins the superficial MCL. Medial compartment: Minimal narrowing and loss of cartilage in the medial compartment. Lateral compartment: Mild narrowing of the lateral compartment with loss of cartilage. There is a foc al 6 mm defect in the femoral condyle cartilage towards the intercondylar notch. No underlying marrow edema. MR/MR knee LT wo con* [id number] IMPRESSION: 1. High-grade tear if not complete involving the proximal MCL. 2. Partial tear medial patellar retinaculum where it joins the superficial MCL . 3. Marrow edema and loss of the normal bony cortex involving the medial femora l condyle at the insertion site of the MCL consistent with cortical and trabecu lar injury. 4. Mild narrowing of the medial and lateral compartments. 5. 6 mm chondromalacia lateral femoral condyle towards the intercondylar notch .
== END 2021-09-29 08:19 | disposition home or self-care (01) ==
LOC: RAD 08:19
PROVIDERS: PCP Family Medicine; Visit Provider Orthopaedic Surgery
DX: S83.412A Sprain of medial collateral ligament of left knee, initial encounter (principal); R60.0 Localized edema; M94.262 Chondromalacia, left knee; X58.XXXA Exposure to other specified factors, initial encounter
CPT/HCPCS: 73721

== ENCOUNTER → 2021-10-07 15:04 | Outpatient (BNVA) | payer MEDICARE, BC, SELFPAY | PROVIDERS: PCP Family Medicine; Visit Provider Orthopaedic Surgery | DX: X58.XXXA Exposure to other specified factors, initial encounter (principal); S83.92XA Sprain of unspecified site of left knee, initial encounter | CPT/HCPCS: 99213 ==

== ENCOUNTER → 2021-10-23 08:07 | Outpatient (BNVA) | payer MEDICARE, BC, SELFPAY | PROVIDERS: PCP Family Medicine; Visit Provider Family Medicine | DX: E53.8 Deficiency of other specified B group vitamins (principal); Z51.81 Encounter for therapeutic drug level monitoring; E11.9 Type 2 diabetes mellitus without complications; R07.9 Chest pain, unspecified; Z13.220 Encounter for screening for lipoid disorders; I10 Essential (primary) hypertension; E78.5 Hyperlipidemia, unspecified | CPT/HCPCS: 80053; 80061; 82607; 83036; 85025 ==

== ENCOUNTER → 2021-11-10 14:45 | Outpatient (BNVA) | payer MEDICARE, BC, SELFPAY | PROVIDERS: PCP Family Medicine; Visit Provider Internal Medicine Cardiovascular Disease | DX: I25.10 Atherosclerotic heart disease of native coronary artery without angina pectoris (principal); I10 Essential (primary) hypertension; E78.5 Hyperlipidemia, unspecified; E11.9 Type 2 diabetes mellitus without complications; Z79.84 Long term (current) use of oral hypoglycemic drugs | CPT/HCPCS: 99213; 99214 ==

== ENCOUNTER 2021-12-08 08:13 | Outpatient (CLI) | payer MEDICARE, BC, SELFPAY ==
--- NOTE | 2021-12-08 | ECG_ITS ---
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 Interpretive Statements NAME OF STUDY: EXERCISE SESTAMIBI STRESS TEST INDICATION: Chest Pain; Coronary Artery Disease Baseline blood pressure of 181/84 mm Hg, heart rate 70 beats per minute and oxygen saturation of 96%. EKG showed normal sinus rhythm, normal axis. Poor anterior R wave progression. The patient exercised for 6 minutes and 7 seconds on a standard True protocol. Patient attained a maximum heart rate of 145 beats per minute(99% of the maximum predicted heart rate) with a blood pressure at the peak exercise of 211/76 mm Hg and oxygen saturation 96%. The EKG at the peak exercise revealed no significant ST-T wave changes. Patient did not have any chest pain or any significant arrhythmis with the exercise During the recovery phase, there were no new changes. Blood pressure at the end of the recovery phase was 157/85 mm Hg with a heart rate of 86 beats per minute and oxygen saturation 96%. CONCLUSION: 1. Normal EKG response to treadmill exercise. 2. No exercise-induced chest pain or cardiac arrhythmia. 3. Good exercise tolerance, attained a maximum of 7 METs. 4. Baseline hypertension with hypertensive response to exercise. 5. Perfusion scan will be documented separately. Electronically Signed On 12-28-2021 16:39:48 CDT by Radha Louise M.D. [email or web address]
[2021-12-08 08:16] VITALS: BMI 38.9
--- NOTE | 2021-12-08 08:17 | NMCV_ITS ---
NM mando perf SPECT r/s* [id number] Dia Cat Age: 76 Gender: F : 1945 Exam Date: 12/08/2021 08:17 Ordering Phys: Radha Louise MD ([email or web address]) Technologist: ENRIQUETA Hays Exam Location: [facility] Indications: CHEST PAIN STRESS TEST Please see separate stress test report in [facility] for full findings IMAGE PROTOCOL Rest/Stress 1 Exercise Day Radiopharmaceutical Dose (mCi) Administration Site Administered by Rest: Tc-99m 10.8 IV ENRIQUETA Gudino Sestamibi Stress:Tc-99m 32.5 IV ENRIQUETA Gudino Sestamibi Rest: 08-Dec-2021 60 Discovery 630 Stress: 08-Dec-2021 30 Discovery 630 Radiopharmaceutical was injected at 97 % maximum heart rate. Images obtained in supine and prone position. SPECT RESULTS Technical Quality: Excellent Raw Data Analysis: Normal Image Corrections: No attenuation or motion correction applied Summed Stress Score: 0 Summed Rest Score: 5 Summed Difference Score: 0 PERFUSION FINDINGS Small sized perfusion abnormality of mild severity of mid inferolateral, apical lateral and apical driscoll on rest images with improved tracer uptake on stress images. This is suggestive of attenuation artifact. FUNCTIONAL RESULTS (calculated via Gated SPECT) Stress Image LV EF (%): 95 Stress EDV (mL):63 TID: 0.8 Stress ESV (mL):3 FUNCTIONAL FINDINGS: The left ventricle is normal in size. Transient Ischemia Dilatation of 0.8. The left ventricular ejection fraction is hyperdynamic with a value of 95%. There is hyperdynamic left ventricular wall thickening. IMPRESSIONS 1. Myocardial perfusion imaging is normal. Attenuation artifact noted in mid inferolateral, apical lateral and apical driscoll. 2. Overall left ventricular systolic function is hyperdynamic without regional wall motion abnormalities, LVEF=95%. 3. EKG portion of the study will be reported separately. Radha Louise MD (Electronically Signed) Final Date: 11 December 2021 12:30 S
[2021-12-08 10:18] VITALS: BP 137/84; PULSE 83
== END 2021-12-08 08:14 | disposition home or self-care (01) ==
PROVIDERS: PCP Family Medicine; Visit Provider Internal Medicine Cardiovascular Disease
DX: R07.9 Chest pain, unspecified (principal)
CPT/HCPCS: 78452; 93017; A9500

== ENCOUNTER → 2022-01-25 10:54 | Outpatient (BNVA) | payer MEDICARE, BC, SELFPAY | PROVIDERS: PCP Family Medicine; Visit Provider Family Medicine | DX: R00.2 Palpitations (principal); E11.9 Type 2 diabetes mellitus without complications; Z51.81 Encounter for therapeutic drug level monitoring | CPT/HCPCS: 80053; 83036; 84439; 84443; 85025 ==

== ENCOUNTER → 2022-08-10 13:55 | Outpatient (BNVA) | payer MEDICARE, BC, SELFPAY | PROVIDERS: PCP Family Medicine; Visit Provider Internal Medicine Cardiovascular Disease | DX: I25.10 Atherosclerotic heart disease of native coronary artery without angina pectoris (principal); I10 Essential (primary) hypertension; E78.5 Hyperlipidemia, unspecified; E11.9 Type 2 diabetes mellitus without complications; Z79.84 Long term (current) use of oral hypoglycemic drugs; Z79.82 Long term (current) use of aspirin | CPT/HCPCS: 99214 ==

== ENCOUNTER → 2022-11-18 08:14 | Outpatient (BNVA) | payer MEDICARE, BC, SELFPAY | PROVIDERS: PCP Family Medicine; Visit Provider Family Medicine | DX: R53.81 Other malaise (principal); R53.83 Other fatigue; R00.2 Palpitations; I10 Essential (primary) hypertension; E78.5 Hyperlipidemia, unspecified; Z51.81 Encounter for therapeutic drug level monitoring; E55.9 Vitamin D deficiency, unspecified; E53.8 Deficiency of other specified B group vitamins; R07.9 Chest pain, unspecified; Z13.220 Encounter for screening for lipoid disorders | CPT/HCPCS: 80053; 80061; 82306; 82607; 83735; 84439; 84443; 85025 ==

== ENCOUNTER → 2022-12-10 09:21 | Outpatient (BNVA) | payer MEDICARE, BC, SELFPAY | PROVIDERS: PCP Family Medicine; Visit Provider Family Medicine | DX: E11.9 Type 2 diabetes mellitus without complications (principal); Z00.00 Encounter for general adult medical examination without abnormal findings | CPT/HCPCS: 83036 ==

== ENCOUNTER 2023-03-06 08:01 | Emergency (ER) | payer MEDICARE, BC, SELFPAY ==
[2023-03-06 08:04] VITALS: PULSE 56; RESP 18; TEMP 36.8; O2SAT 97; BMI 37.2
--- NOTE | 2023-03-06 08:06 | W.ED.CHESTPA ---
HPI - Chest Pain General: Chief Complaint: Chest Pain Stated Complaint: cp Time Seen by Provider: 03/06/23 08:06 History of Present Illness: 77-year-old female presents to the emergency department stating that she feels like she is having some chest heaviness and chest pressure with intermittent shortness of breath. She states she feels this occurs when she has left groin pain. She states she does have a single coronary artery cardiac stent placed and was evaluated last year by cardiology and stated that she had a clear stress test. She does not appear to be in any acute distress at present. She states when the pressure occurs it is a 3 out of 10 at present it is a 1 out of 10. She denies nausea, vomiting or night sweats. She denies dizziness or lightheaded feeling. She states she has not missed any of her medications. 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 Vital signs reviewed as documented. HENMT: Normocephalic, atraumatic. Extermal ears with normal appearance without drainage. Nose without drainage, normal appearance. Mucus membranes moist. Neck is supple, No jugular venous distension, trachea is midline, no appreciable carotid bruits. No lymphadenopathy. No meningeal signs. Flexion, extension and lateral rotation is without pain. Eyes: Pupils are equal, round, reactive to light and accommodation. No scleral icterus. Extra-ocular movement are intact. Thorax is symmetrical and with equal rise and fall with respirations. Resp: Lungs are clear to auscultation. No wheezes, rales, crackles or ronchi at present. Cardio: Regular rate and rhythm. Positive S1, S2. No appreciable murmurs, rubs or gallops. GI: Abdominal exam reveals normal bowel sounds to all quadrants. No organomegaly. No obvious palpable masses noted. No hepatomegally appreciated. Soft, nontender to palpation. Extremity: Extremities are non-edematous and both femoral and pedal pulses are 2+ and equal bilaterally. Moves all extremities well, sensation in all extremities. Neuro: Alert and oriented x4, person, place, time and situation. Cranial nerves II through XII are grossly intact, there is no focal neurological deficits that I can appreciate at present. Motor strength in the upper and lower extremities are equal and bilateral 5/5. Psych: Cooperative, calm, normal thought process, appropriate judgment. Skin: No lesions, rashes. No gross abnormalities noted. Back: Symmetrical, no obvious deformity, No CVA tenderness Course Vital Signs: Vital signs: Vital Signs Temperature 98.3 F 03/06/23 08:04 Pulse Rate 64 03/06/23 09:43 Respiratory Rate 18 03/06/23 09:43 Blood Pressure 141/62 03/06/23 09:43 Pulse Oximetry 94 03/06/23 09:43 Oxygen Delivery Me thod Room Air 03/06/23 09:43 MDM - Chest Pain Medical Decision Making Physical exam completed and documented, I will obtain serial cardiac enzymes, serial twelve-lead EKGs, chest x-ray, CBC, CMP, urinalysis, B-type natriuretic peptide, PT/PTT/INR, and a chest x-ray. I will review any pervious and pertinent medical records for assist in obtaining beneficial medical information to improved the care and treatment of the patient. Medical Records I reviewed the patient's medical records. Lab Data I reviewed the patient's lab results. 03/06/23 08:21 03/06/23 08:21 Radiology Impressions Chest X-Ray 03/06/23 08:07 IMPRESSION: No acute finding or significant change from 02/10/2020. Laboratory Results WBC 11.23 10^3/uL (3.29-11.43) 03/06/23 08:21 RBC 4.89 10^6/uL (3.85-5.65) 03/06/23 08:21 Hgb 13.20 g/dL (11.27-16.99) 03/06/23 08:21 Hct 41.2 % (36-47) 03/06/23 08:21 MCV 84.3 fl (85-98) L 03/06/23 08:21 MCH 27.0 pg (27-33) 03/06/23 08:21 MCHC 32.0 g/dL (30-55) 03/06/23 08:21 RDW 13.9 % (12.1-15.1) 03/06/23 08:21 Plt Count 297 10^3/cmm (157-399) 03/06/23 08:21 MPV 10.4 fL (7.4-10.4) 03/06/23 08:21 Neut % (Auto) 78.9 % 03/06/23 08:21 Lymph % (Auto) 14.1 % 03/06/23 08:21 Edgar % (Auto) 5.3 % 03/06/23 08:21 Eos % (Auto) 1.0 % 03/06/23 08:21 Baso % (Auto) 0.4 % 03/06/23 08:21 Neut # (Auto) 8.87 10^3/uL (1.8-7.7) H 03/06/23 08:21 Lymph # (Auto) 1.6 10^3/uL (0.8-4.8) 03/06/23 08:21 Edgar # (Auto) 0.6 10^3/uL (0.2-0.9) 03/06/23 08:21 Eos # (Auto) 0.1 10^3/uL (0.0-0.8) 03/06/23 08:21 Baso # (Auto) 0.0 10^3/uL (0.0-0.1) 03/06/23 08:21 Nucleated RBC % (auto) 0 % 03/06/23 08:21 Nucleated RBCs # 0.0 /100WBC 03/06/23 08:21 PT 13.90 SECONDS (12.1-14.9) 03/06/23 08:21 INR 1.04 (0.8-1.2) 03/06/23 08:21 APTT 26.1 SECONDS (23.9-36.7) 03/06/23 08:21 Sodium 138 mmol/L (136-145) 03/06/23 08:21 Potassium 4.3 mmol/L (3.5-5.1) 03/06/23 08:21 Chloride 101 mmol/L (98-107) 03/06/23 08:21 Carbon Dioxide 27 mmol/L (22-29) 03/06/23 08:21 Anion Gap 14.3 (5-19) 03/06/23 08:21 BUN 12 mg/dL (8-23) 03/06/23 08:21 Creatinine 0.7 mg/dL (0.5-0.9) 03/06/23 08:21 GFR Calculation Not Reportable 03/06/23 08:21 Glucose 163 mg/dL (65-115) H 03/06/23 08:21 Calculated Osmolality 289 mOsm/kg (285-295) 03/06/23 08:21 Calcium 9.3 mg/dL (8.5-10.5) 03/06/23 08:21 Total Bilirubin 0.5 mg/dL (0.15-1.2) 03/06/23 08:21 AST 13 U/L (0-32) 03/06/23 08:21 ALT 9 U/L (0-33) 03/06/23 08:21 Alkaline Phosphatase 121 U/L (35-105) H 03/06/23 08:21 Troponin T Baseline 9 ng/L (0-10) 03/06/23 08:21 Troponin T 120 Minute 7.79 ng/L (0-10) 03/06/23 10:00 Delta Troponin T -1.21 ABS# (0-10) L 03/06/23 10:00 NT-Pro-B Natriuret Pep 131 pg/mL (0-450) 03/06/23 08:21 Total Protein 6.8 g/dL (6.6-8.7) 03/06/23 08:21 Albumin 4.0 g/dL (3.5-5.2) 03/06/23 08:21 Globulin 2.8 g/dL (1.3-4.6) 03/06/23 08:21 Urine Color Yellow (Yellow) 03/06/23 08:22 Urine Appearance Clear (CLEAR) 03/06/23 08:22 Urine pH 5 (5-7) 03/06/23 08:22 Ur Specific [place] 1.010 (1.005-1.030) 03/06/23 08:22 Urine Protein Neg (Negative) 03/06/23 08:22 Urine Glucose (UA) Norm (Normal) 03/06/23 08:22 Urine Ketones Negative (Negative) 03/06/23 08:22 Urine Blood 3+ (Negative) H 03/06/23 08:22 Urine Nitrate Negative (Negative) 03/06/23 08:22 Urine Bilirubin Neg (Negative) 03/06/23 08:22 Urine Urobilinogen Norm mg/dL (Negative) 03/06/23 08:22 Ur Leukocyte Esterase Trace (Negative) H 03/06/23 08:22 Urine RBC 0-4 /hpf (0-2) H 03/06/23 08:22 Urine WBC 0-4 /hpf (0-5) H 03/06/23 08:22 Ur Squamous Epith Cells 0-4 /hpf (0-5) H 03/06/23 08:22 Amorphous Sediment Not Reportable 03/06/23 08:22 Urine Bacteria Trace /hpf (NONE) 03/06/23 08:22 All radiology interpretation(s) finalized by discharge EKG Data EKG 1: Interpretation: Twelve-lead EKG obtained at 807 reviewed at 808 demonstrates sinus rhythm with a ventricular rate of 62 bpm, MI interval 177, QRS duration 79, QT 3 3, QTc [address] elevation or depression to demonstrate acute ischemia or infarction at present. There is significant motion artifact noted. EKG 2: Interpretation: Twelve-lead EKG obtained at 957 and reviewed at 957 demonstrates sinus bradycardia with a ventricular rate of 57 bpm, MI interval 179, QRS duration 76, QT 403, QTc [address] elevation or depression at present to demonstrate acute ischemia or infarction there is significant motion artifact noted on the EKG tracing. Discharge Plan Discharge Patient Disposition: Home Clinical Impression: Atypical chest pain, Lt groin pain Condition: Stable Prescriptions: No Action aspirin [Adult Low Dose Aspirin] 81 mg tablet,delayed release (DR/EC) 81 mg PO BEDTIME sulfamethoxazole-trimethoprim [Bactrim DS] 800-160 mg tablet 1 tab PO BID 10 Days Qty: 20 0RF zinc gluconate 50 mg tablet 50 mg PO DAILY@12 coenzyme Q10 [Co Q-10] 100 mg capsule 100 mg PO QPM diclofenac sodium 75 mg tablet,delayed release (DR/EC) 75 mg PO BID PRN (Reason: gout pain) Qty: 60 3RF amlodipine 2.5 mg tablet 2.5 mg PO DAILY Qty: 90 3RF carvedilol 12.5 mg tablet 12.5 mg PO BID Qty: 180 3RF Rx Instructions: must administer with a meal/food cholecalciferol (vitamin D3) [Vitamin D3] 125 mcg (5,000 unit) Tablet 125 mcg PO DAILY@12 albuterol sulfate [ProAir HFA] 90 mcg/actuation HFA aerosol inhaler 2 inh inhalation Q8H PRN (Reason: shortness of breath or wheezing) Qty: 8.5 0RF metformin 500 mg tablet 500 mg PO BID allopurinol 100 mg tablet 100 mg PO DAILY omeprazole 40 mg capsule,delayed release(DR/EC) 40 mg PO QAM Collagen Peptides Powder See Rx Instructions .ROUTE .COMPLEX Rx Instructions: 2 scoops mixed in coffee every morning atorvastatin 40 mg tablet 40 mg PO BEDTIME lisinopril 40 mg tablet 40 mg PO QAM Discharge Orders: Discharge ED (Routine); Ordered 03/06/23 Ordered By: Alec Guillen Referrals: Bassem Restrepo DO [Physician] - Dayday Cerda MD [Primary Care Provider] - Discharge Diet: Advance as tolerated Discharge Activity: Resume usual activity Patient Instructions: Opioid Safety, Pain Management Activity Restrictions/Additional Instructions: Activity Restrictions/Additional Instructions: Thank you for choosing [facility] for your healthcare needs today. Please realize that you were seen in the Emergency Department and that we are providing you with an emergency medical screening exam and this may not be a complete and all inclusive of all the testing and or medical work-up that you may need to determine your ailment or severity of your illness. It is very important that you follow-up as instructed with your Primary care provider or Specialist for additional evaluation and to discuss your medical treatment plan. You may return to the Emergency Department should you have concerns or if your condition changes or worsens in any way. Coding Level of Care Code ED Corporate Recycling Manager for Claudia Dover
--- NOTE | 2023-03-06 08:07 | ECG_ITS ---
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 Measurements Intervals [place] Rate: 62 P: 45 ME: 177 QRS: -5 QRSD: 79 T: 39 QT: 383 QTc: 391 Interpretive Statements SINUS RHYTHM LOW QRS VOLTAGE IN PRECORDIAL LEADS [QRS DEFLECTION < 1.0 mV IN CHEST LEADS] Compared to ECG 02/10/2020 14:55:43 Low QRS voltage now present Electronically Signed On 03-06-2023 16:23:04 DOCTOR OF NATUROPATHIC MEDICINE by Donnie Lopez M.D. [id number]
--- NOTE | 2023-03-06 08:07 | XRR_ITS ---
PROCEDURE INFORMATION: Exam: XR Chest Exam date and time: 03/06/2023 8:27 AM Age: 77 years old Clinical indication: Angina; Prior surgery; Surgery date: 6+ months; Surgery type: Stent; Additional info: Chest pain TECHNIQUE: Imaging protocol: Radiologic exam of the chest. Views: 1 view. COMPARISON: CR XR chest 1V portable [id number] 02/10/2020 3:30 PM FINDINGS: Lungs: Unchanged mild areas of lung base atelectasis or scarring. No consolidation. Pleural spaces: Unremarkable. No pleural effusion. No pneumothorax. Heart/Mediastinum: Unchanged mild cardiomegaly. Bones/joints: Unremarkable. XR/XR chest 1V portable [id number] IMPRESSION: No acute finding or significant change from 02/10/2020.
[2023-03-06 08:17] VITALS: BP 152/66; PULSE 63
[2023-03-06] MEDS: aspirin 81 mg Chew Tablet 324 MG PO (08:17)
[2023-03-06] MEDS: nitroglycerin 1 gm/inch oint Pkt 1 INCH TOPICAL (08:17)
[2023-03-06 08:30] LABS: Basophils % 0.4 %; Eosinophils # 0.1 10^3/uL (0.0-0.8); Hematocrit 41.2 % (36-47); Lymphocytes # 1.6 10^3/uL (0.8-4.8); Lymphocytes % 14.1 %; Mean Corpuscular Volume 84.3 fl (85-98); Mean Platelet Volume 10.4 fL (7.4-10.4); Monocytes # 0.6 10^3/uL (0.2-0.9); Monocytes % 5.3 %; Neutrophils # 8.87 10^3/uL (1.8-7.7); Neutrophils % 78.9 %; Nucleated Red Blood Cells % 0 %; Platelet Count 297 10^3/cmm (157-399); Red Blood Count 4.89 10^6/uL (3.85-5.65); Red Cell Distribution Width 13.9 % (12.1-15.1); White Blood Count 11.23 10^3/uL (3.29-11.43)
[2023-03-06 08:42] LABS: INR 1.04 (0.8-1.2)
[2023-03-06 08:43] LABS: Partial Thromboplastin Time 26.1 SECONDS (23.9-36.7)
[2023-03-06 08:49] LABS: Troponin(5th) Baseline 9 ng/L (0-10)
[2023-03-06 08:55] LABS: Urine Appearance Clear (CLEAR); Urine Color Yellow (Yellow); pH Urine 5 (5-7)
[2023-03-06 08:56] LABS: Add Urine Culture? No; Add Urine Microscopic? YES; Bacteria Urine TRACE /hpf; Bilirubin Urine Neg (Negative); Blood Urine 3+ (Negative); Glucose Urine UA Norm (Normal); Ketones Urine Negative (Negative); Leukocyte Esterase Urine Trace (Negative); Nitrate Urine Negative (Negative); Protein Urine Neg (Negative); RBC Urine 0-4 /hpf (0-2); Squamous Epithelial Cell Urine 0-4 /hpf (0-5); Urobilinogen Urine Norm (Negative); WBC Urine 0-4 /hpf (0-5)
[2023-03-06 08:57] LABS: Alanine Aminotransferase 9 U/L (0-33); Alkaline Phosphatase 121 U/L (35-105); Anion Gap 14.3 (5-19); Aspartate Amino Transferase 13 U/L (0-32); Blood Urea Nitrogen 12 mg/dL (8-23); Calcium 9.3 mg/dL (8.5-10.5); Carbon Dioxide 27 mmol/L (22-29); Chloride 101 mmol/L (98-107); Globulin 2.8 g/dL (1.3-4.6); Glucose 163 mg/dL (65-115); Osmolality Calculated 289 mOsm/kg (285-295); Potassium 4.3 mmol/L (3.5-5.1); Sodium 138 mmol/L (136-145); Total Bilirubin 0.5 mg/dL (0.15-1.2); Total Protein 6.8 g/dL (6.6-8.7)
[2023-03-06 08:59] LABS: NT Pro B Type Natriuretic Pept 131 pg/mL (0-450)
[2023-03-06 09:18] VITALS: BP 142/62; PULSE 60; RESP 18; O2SAT 93
[2023-03-06 09:43] VITALS: BP 141/62; PULSE 64; RESP 18; O2SAT 94
--- NOTE | 2023-03-06 10:07 | ECG_ITS ---
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 Measurements Intervals [place] Rate: 57 P: 23 TX: 179 QRS: -4 QRSD: 76 T: 35 QT: 403 QTc: 395 Interpretive Statements SINUS BRADYCARDIA LOW QRS VOLTAGE IN PRECORDIAL LEADS [QRS DEFLECTION < 1.0 mV IN CHEST LEADS] Compared to ECG 03/06/2023 08:07:54 Sinus rhythm no longer present Electronically Signed On 03-07-2023 10:53:47 SALES PROFESSIONAL by Donnie Lopez M.D. [id number]
[2023-03-06 10:29] LABS: Troponin 5 2HR 7.79 ng/L (0-10)
[2023-03-06 10:31] LABS: Troponin 5 2HR Delta -1.21 ABS# (0-10)
== END 2023-03-06 11:37 | disposition home or self-care (01) ==
PROVIDERS: Emergency Provider Internal Medicine; PCP Family Medicine
DX: R07.89 Other chest pain (principal); R10.32 Left lower quadrant pain; Z79.82 Long term (current) use of aspirin; Z79.84 Long term (current) use of oral hypoglycemic drugs; I10 Essential (primary) hypertension; E78.5 Hyperlipidemia, unspecified; E11.9 Type 2 diabetes mellitus without complications; I25.10 Atherosclerotic heart disease of native coronary artery without angina pectoris; Z77.22 Contact with and (suspected) exposure to environmental tobacco smoke (acute) (chronic)
CPT/HCPCS: 36415; 71045; 80053; 81001; 83880; 84484; 85025; 85610; 85730; 93005; 99285

== ENCOUNTER 2023-03-09 08:57 | Outpatient (CLI) | payer MEDICARE, BC, SELFPAY ==
[2023-03-09 10:16] LABS: Basophils % 0.3 %; Eosinophils # 0.1 10^3/uL (0.0-0.8); Eosinophils % 0.4 %; Hematocrit 41.7 % (36-47); Lymphocytes # 1.7 10^3/uL (0.8-4.8); Lymphocytes % 13.3 %; Mean Corpuscular HGB Conc 32.4 g/dL (30-55); Mean Corpuscular Hemoglobin 27.2 pg (27-33); Mean Corpuscular Volume 84.1 fl (85-98); Mean Platelet Volume 10.4 fL (7.4-10.4); Monocytes # 0.8 10^3/uL (0.2-0.9); Monocytes % 6.3 %; Neutrophils # 10.32 10^3/uL (1.8-7.7); Neutrophils % 79.2 %; Nucleated Red Blood Cells % 0 %; Platelet Count 336 10^3/cmm (157-399); Red Blood Count 4.96 10^6/uL (3.85-5.65); White Blood Count 13.02 10^3/uL (3.29-11.43)
== END 2023-03-09 08:58 | disposition home or self-care (01) ==
LOC: RAD 09:00
PROVIDERS: Clinical Nurse Specialist Adult Health; PCP Family Medicine; Visit Provider Family Medicine
DX: N12 Tubulo-interstitial nephritis, not specified as acute or chronic (principal); R30.0 Dysuria; R31.9 Hematuria, unspecified
CPT/HCPCS: 36415; 74019; 81000; 81003; 85025; 86140; 87086

== ENCOUNTER 2023-03-17 09:48 | Emergency (ER) | payer MEDICARE, BC, SELFPAY ==
[2023-03-17] VITALS (9 sets, daily range): BP systolic 119–134; BP diastolic 50–69; PULSE 63–77; RESP 17–18; TEMP 36.5; O2SAT 94–98; BMI 35.4
[2023-03-17 10:23] LABS: Basophils % 0.3 %; Eosinophils % 0.3 %; Hematocrit 41.9 % (36-47); Lymphocytes # 1.6 10^3/uL (0.8-4.8); Mean Corpuscular HGB Conc 32.7 g/dL (30-55); Mean Corpuscular Hemoglobin 27.2 pg (27-33); Mean Corpuscular Volume 83.1 fl (85-98); Mean Platelet Volume 10.7 fL (7.4-10.4); Monocytes # 1.1 10^3/uL (0.2-0.9); Monocytes % 7.4 %; Neutrophils # 11.72 10^3/uL (1.8-7.7); Neutrophils % 80.7 %; Nucleated Red Blood Cells % 0 %; Platelet Count 405 10^3/cmm (157-399); Red Blood Count 5.04 10^6/uL (3.85-5.65); Red Cell Distribution Width 14.2 % (12.1-15.1); White Blood Count 14.52 10^3/uL (3.29-11.43)
[2023-03-17] MEDS: sodium chloride 0.9% 1,000 ML 999 ML IV (10:28)
[2023-03-17 10:41] LABS: Alanine Aminotransferase 8 U/L (0-33); Albumin Level 3.5 g/dL (3.5-5.2); Alkaline Phosphatase 98 U/L (35-105); Anion Gap 17.6 (5-19); Aspartate Amino Transferase 14 U/L (0-32); Blood Urea Nitrogen 27 mg/dL (8-23); Carbon Dioxide 21 mmol/L (22-29); Chloride 100 mmol/L (98-107); Globulin 3.3 g/dL (1.3-4.6); Glucose 141 mg/dL (65-115); Lipase 19 U/L (13-60); Osmolality Calculated 285 mOsm/kg (285-295); Potassium 4.6 mmol/L (3.5-5.1); Sodium 134 mmol/L (136-145); Total Bilirubin 0.4 mg/dL (0.15-1.2); Total Protein 6.8 g/dL (6.6-8.7)
[2023-03-17 10:50] LABS: Creatinine Clr Calc Pharmacy 39.9779
--- NOTE | 2023-03-17 11:29 | CT_ITS ---
WS: [id number] CT ABDOMEN AND PELVIS WITH CONTRAST HISTORY: increased abd pain-has right sided mass hx TECHNIQUE: Imaging performed of the abdomen and pelvis with IV contrast. Single phase imaging of the abdomen. Coronal and sagittal reformats are submitted. All CT scans at [facility] use at [address] one of these dose optimization techniques: automated exposure control; mA and/or kV adjustment per patient size (includes targeted exams where dose is matched to clinical indication); or iterative re construction. IV CONTRAST: Omnipaque 350; 100 mL IV. Oral contrast: No DLP: 1022.52 mGy.cm COMPARISON: 03/10/2023 Lower thorax: There are several, subcentimeter pulmonary nodules at the lung bases. Very small layeri ng LEFT pleural effusion. Heart is normal size. Small hiatal hernia. Liver/biliary system: Normal size with no intrahepatic dilatation. Gallbladder: Gallbladder is abnormal. There is increased density layering within the gallbladder. The attenuation is very similar to the adjacent enhancing liver. Similar findings were noted on the [facility] r CT from 03/10/2023. This could be tumefactive sludge or tumor. Pancreas: Normal size pancreas and pancreatic duct. No adjacent inflammation. Spleen: Normal size spleen with several granulomata. Adrenal glands: Normal. Right kidney: Normal. Left kidney: Normal. Aorta: Normal. Lymphadenopathy: Shotty retroperitoneal adenopathy. Largest LEFT retroperitoneal lymph node at 1.8 cm . 1.9 cm RIGHT iliac lymph node. There is also extensive stranding throughout the omentum noted bilat erally. More nodular foci and increasing masslike consolidation in the RIGHT abdomen over the hepatic flexure. Free fluid: There is a small to moderate amount of ascites throughout the abdomen extending into the pelvis. GI tract: Stomach is nondistended. There is fluid adjacent to the stomach. There is no small bowel ob struction. There is fluid interspersed within the small bowel mesentery and the loops of small bowel. No colon obstruction. The omental carcinomatosis suspected along the RIGHT abdomen extends to the he patic flexure. Abdominal wall: Unremarkable abdominal wall. No hernia. Pelvis: There is free fluid in the pelvis. Very abnormal appearance of the uterus. There is variable density and enhancement within the uterus. Poor distinction between the endometrium and the myometriu m. Transvaginal pelvic ultrasound should be obtained as findings are suspicious for an underlying abn ormality. Patient on a prior CT in 2020 and which these findings were not present. No adnexal mass. Bones: Mild anterolisthesis of L4 and L5. IMPRESSION: 1. Small to moderate amount of ascites of the abdomen and pelvis. 2. 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 Most significant carcinomatosis burden is along the RIGHT ab domen extending to the hepatic flexure. 3. Abnormal uterus and endometrium. There is indistinctness between the endometrium and the myometri um. Suspicious for endometrial neoplasm. Recommend transvaginal pelvic ultrasound evaluation. 4. Abnormal gallbladder. Increased density in the dependent portion of the gallbladder may be tumefa ctive sludge. Tumor not excluded. 5. Small small subcentimeter pulmonary nodules noted at the lung bases and a very small LEFT pleural effusion. 6. No metastatic disease in the adrenal glands or liver. 7. Retroperitoneal and bilateral iliac lymph node measuring up to 1.9 cm. Notified Andre Marcelino DO at 03/17/2023 12:27 PM.
--- NOTE | 2023-03-17 11:30 | ED_ITS ---
HPI - Abdominal Pain 2 General: Chief Complaint: Abdominal Pain Stated Complaint: abd pain, diarrhea, can't eat Time Seen by Provider: 03/17/23 09:59 Source: patient Mode of arrival: ambulatory Limitations: no limitations History of Present Illness: This patient was referred to the emergency department because of increasing lower abdominal pain. She is had abdominal pain symptoms now for approximately 1 or more weeks which initially was evaluated in the emergency department at [facility] in [place] where she was referred to insurance purposes. At that time there was concern about a possible kidney stone etiology to her pain subsequent CT scan revealed right lower quadrant masses suggestive of possible carcinoid. She has been subsequently referred to pulmonology, oncology, general surgery but has had increasing pain over the past 24 hours and therefore was referred to the emergency department. She denies any fevers or chills. She has had no prior abdominal surgeries other than tubal ligation. She states that her pain increases to a maximum and seems to be temporarily relieved by a small bowel movement. She denies any vomiting but has had early satiety. She has no issues with urination. She denies any chest pain shortness of breath. She does have a history of a coronary stent placed approximately 15 years ago. MD elicited complaint: abdominal pain Location: RLQ and LLQ Quality: cramping and fullness Radiation: none Relieving factors: bowel movement Associated Symptoms: Denies chills, dysuria, fever(s) and syncope Review of Systems 2 Const: Denies: fever(s) or chills ENMT: Denies: throat pain, odynophagia, nasal discharge or nasal congestion Card: Denies: chest pain, palpitations, syncope or pre-syncope Resp: Denies: dyspnea, productive cough or non-productive cough GI: Reports: abdominal pain : Denies: flank pain, difficulty voiding, dysuria or urinary frequency Musc: Denies: neck pain, back pain, extremity pain or extremity swelling Skin/Breast: Denies: rash Neuro: Denies: headache(s), numbness in extremities or weakness in extremities Endo: Denies: polyuria or polydipsia PFSH ED 2 PFSH: Medical History (Updated 03/17/23 @ 15:03 by Andre Marcelino DO) Back pain Hypertension Dyslipidemia Diabetes mellitus CAD (coronary artery disease) Surgical History S/P coronary artery stent placement Family History Other Cancer Diabetes Myocardial infarction Social History Smoking and tobacco/nicotine status: never used tobacco/nicotine Second hand smoke exposure: Yes Alcohol intake: never Substance/Drug Use: never Additional social history: 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 Const: COMMON NORMALS: no acute distress and patient oriented x3 GENERAL APPEARANCE: cooperative and comfortable NUTRITIONAL APPEARANCE: overweight HENMT: COMMON NORMALS: normocephalic, Normal nasal mucous membranes and turbinates present and moist oral mucous membranes HEAD & SCALP: n ormocephalic NOSE: Normal nasal mucous membranes and turbinates present Eye: COMMON NORMALS: Equal, round and reactive pupils present, EOMs intact bilaterally and conjunctivae normal CONJUNCTIVA: Yes conjunctivae normal P UPIL: Yes Equal, round and reactive pupils present Neck/C-Spine: COMMON NORMALS: full ROM, no lymphadenopathy, no JVD and No carotid bruits Chest: COMMONS NORMALS: normal inspection of the chest Resp: COMMON NORMALS: normal respiratory effort, No retractions, No use of accessory muscles and clear to auscultation bilaterally AUSCULTATION: clear to auscultation bilaterally Cardio: COMMON NORMALS: no JVD, regular rate, regular rhythm, No murmurs present (Cardio) and Peripheral pulses 2+ throughout RATE: regular rate R HYTHM: regular rhythm PERIPHERAL PULSES: Peripheral pulses 2+ throughout GI: COMMON NORMALS: Normal to inspection, nondistended, normoactive bowel sounds present OTHER: She has slight distention of her entire abdomen. She has tenderness to palpation and with some subjective fullness to the right and left lower quadrants. There is no obvious palpable masses, no rebound no guarding. : COMMON NORMALS: Yes no CVA tenderness BLADDER/KIDNEY EXAM: Yes no CVA tenderness Back/Pelvis: COMMON NORMALS: no CVA tenderness, thoracic and lumbar spine normal to inspection, no thoracic nor lumbar tenderness, thoraco-lumbar ROM normal and straight leg raise negative bilaterally Extremity: COMMON NORMALS: normal to inspection, full ROM, capillary refill normal, no calf tenderness and no pedal edema Neuro: COMMON NORMALS: patient oriented x3 and moves all extremities C RANIAL NERVES: Yes CN normal except as noted Psych: COMMON NORMALS: mental status grossly normal Skin: COMMON NORMALS: no rashes or lesions noted, no wounds and turgor normal GENERAL SKIN EXAM: no rashes or lesions noted and turgor normal Course 2 Reevaluation(s): Reevaluation #1: Discussed findings with consulting radiologist who recommended transvaginal ultrasound to evaluate her pelvic organs more completely Time: 13:02 Reevaluation #2: Discussed current recommendations with patient and her accompanying family. At this point she is not obstructed and does not have any evidence of any other acute process at this time that needs immediate hospitalization and she does have a surgical evaluation in the morning. We will plan on controlling pain and nausea she will follow-up in as scheduled. She was in concert with this plan of care. Time: 15:01 Consultations: Consultation #1: I did discuss with Dr. Restrepo we reviewed her current presentation to the emergency department. Given the fact she is not obstructed and there is no other acute process at this time to warrant inpatient admission other than the fact that she is having pain which we certainly may be able to control and he would prefer that she see him tomorrow and then proceed from there. Time: 14:56 Vital Signs: Vital signs: Vital Signs Temperature 97.7 F 03/17/23 09:49 Pulse Rate 77 03/17/23 12:30 Respiratory Rate 17 03/17/23 11:36 Blood Pressure 121/50 03/17/23 12:30 Pulse Oximetry 94 03/17/23 12:30 Oxygen Delivery Me thod Room Air 03/17/23 12:30 MDM - Abdominal Pain Medical Decision Making Patient was referred to the emergency department because of his increasing pain. She has a known right lower abdomen mass which was found on a CT scan earlier this month. Patient states she has increasing pain with solid foods but is able to take some liquids without difficulty. She states she is urinating normally and has had small amounts of bowel movement without any bleeding etc. There is no history of fevers chills or other symptoms. Clinical examination did not reveal any evidence of rebound guarding or other surgical abdomen at this time. Ancillary studies were undertaken to ensure no evidence of bowel obstruction or any other urgent process. CT scan did reveal findings of previously known and no evidence of bowel obstruction or any other acute process. A ultrasound was also obtained at the recommendations of radiology but was unrevealing for any obvious pathology. Consultation with Dr. Restrepo was obtained and he was in concurrence with discharge and he will see her first thing in the morning. We will give her medication to control pain and nausea and she will see general surgery in the morning. For any changes in her condition or other concerns she was encouraged to return to the emergency department anytime. Medical Records I reviewed the patient's medical records. Lab Data I reviewed the patient's lab results. 03/17/23 10:09 03/17/23 10:09 Labs/Radiology: Laboratory Results WBC 14.52 10^3/uL (3.29-11.43) H 03/17/23 10:09 RBC 5.04 10^6/uL (3.85-5.65) 03/17/23 10:09 Hgb 13.70 g/dL (11.27-16.99) 03/17/23 10:09 Hct 41.9 % (36-47) 03/17/23 10:09 MCV 83.1 fl (85-98) L 03/17/23 10:09 MCH 27.2 pg (27-33) 03/17/23 10:09 MCHC 32.7 g/dL (30-55) 03/17/23 10:09 RDW 14.2 % (12.1-15.1) 03/17/23 10:09 Plt Count 405 10^3/cmm (157-399) H 03/17/23 10:09 MPV 10.7 fL (7.4-10.4) H 03/17/23 10:09 Neut % (Auto) 80.7 % 03/17/23 10:09 Lymph % (Auto) 11.0 % 03/17/23 10:09 [place] % (Auto) 7.4 % 03/17/23 10:09 Eos % (Auto) 0.3 % 03/17/23 10:09 Baso % (Auto) 0.3 % 03/17/23 10:09 Neut # (Auto) 11.72 10^3/uL (1.8-7.7) H 03/17/23 10:09 Lymph # (Auto) 1.6 10^3/uL (0.8-4.8) 03/17/23 10:09 [place] # (Auto) 1.1 10^3/uL (0.2-0.9) H 03/17/23 10:09 Eos # (Auto) 0.0 10^3/uL (0.0-0.8) 03/17/23 10:09 Baso # (Auto) 0.0 10^3/uL (0.0-0.1) 03/17/23 10:09 Nucleated RBC % (auto) 0 % 03/17/23 10:09 Nucleated RBCs # 0.0 /100WBC 03/17/23 10:09 Sodium 134 mmol/L (136-145) L 03/17/23 10:09 Potassium 4.6 mmol/L (3.5-5.1) 03/17/23 10:09 Chloride 100 mmol/L (98-107) 03/17/23 10:09 Carbon Dioxide 21 mmol/L (22-29) L 03/17/23 10:09 Anion Gap 17.6 (5-19) 03/17/23 10:09 BUN 27 mg/dL (8-23) H 03/17/23 10:09 Creatinine 1.3 mg/dL (0.5-0.9) H 03/17/23 10:09 GFR Calculation Not Reportable 03/17/23 10:09 Glucose 141 mg/dL (65-115) H 03/17/23 10:09 Calculated Osmolality 285 mOsm/kg (285-295) 03/17/23 10:09 Calcium 9.0 mg/dL (8.5-10.5) 03/17/23 10:09 Total Bilirubin 0.4 mg/dL (0.15-1.2) 03/17/23 10:09 AST 14 U/L (0-32) 03/17/23 10:09 ALT 8 U/L (0-33) 03/17/23 10:09 Alkaline Phosphatase 98 U/L (35-105) 03/17/23 10:09 Total Protein 6.8 g/dL (6.6-8.7) 03/17/23 10:09 Albumin 3.5 g/dL (3.5-5.2) 03/17/23 10:09 Globulin 3.3 g/dL (1.3-4.6) 03/17/23 10:09 Lipase 19 U/L (13-60) 03/17/23 10:09 Urine Color Yellow (Yellow) 03/17/23 13:14 Urine Appearance Clear (CLEAR) 03/17/23 13:14 Urine pH 5 (5-7) 03/17/23 13:14 Ur Specific [place] 1.015 (1.005-1.030) 03/17/23 13:14 Urine Protein Neg (Negative) 03/17/23 13:14 Urine Glucose (UA) Norm (Normal) 03/17/23 13:14 Urine Ketones 1+ (Negative) H 03/17/23 13:14 Urine Blood Neg (Negative) 03/17/23 13:14 Urine Nitrate Negative (Negative) 03/17/23 13:14 Urine Bilirubin Neg (Negative) 03/17/23 13:14 Urine Urobilinogen Norm mg/dL (Negative) 03/17/23 13:14 Ur Leukocyte Esterase Negative (Negative) 03/17/23 13:14 All radiology interpretation(s) finalized by discharge Discharge Plan Discharge Patient Disposition: Home Clinical Impression: Intraabdominal mass Abdominal pain Qualifiers: Abdominal location: right lower quadrant Qualified Code(s): R10.31 - Right lower quadrant pain Condition: Stable Prescriptions: New oxycodone 5 mg tablet 5 mg PO BID PRN (Reason: pain) Qty: 10 0RF metoclopramide HCl [Reglan] 10 mg tablet 10 mg PO Q6H 7 Days Qty: 28 0RF No Action aspirin [Adult Low Dose Aspirin] 81 mg tablet,delayed release (DR/EC) 81 mg PO BEDTIME ondansetron 4 mg tablet,disintegrating 4 mg PO Q8H PRN (Reason: nausea and vomiting) Qty: 30 0RF zinc gluconate 50 mg tablet 50 mg PO DAILY@12 coenzyme Q10 [Co Q-10] 100 mg capsule 100 mg PO QPM diclofenac sodium 75 mg tablet,delayed release (DR/EC) 75 mg PO BID PRN (Reason: gout pain) Qty: 60 3RF amlodipine 2.5 mg tablet 2.5 mg PO DAILY Qty: 90 3RF carvedilol 12.5 mg tablet 12.5 mg PO BID Qty: 180 3RF cholecalciferol (vitamin D3) [Vitamin D3] 125 mcg (5,000 unit) Tablet 125 mcg PO DAILY@12 metformin 500 mg tablet 500 mg PO BID allopurinol 100 mg tablet 100 mg PO BEDTIME omeprazole 40 mg capsule,delayed release(DR/EC) 40 mg PO QAM Collagen Peptides Powder See Rx Instructions .ROUTE .COMPLEX Rx Instructions: 2 scoops mixed in coffee every morning atorvastatin 40 mg tablet 40 mg PO BEDTIME lisinopril 40 mg tablet 40 mg PO QAM Discharge Orders: Discharge ED (Routine); Ordered 03/17/23 Ordered By: Andre Marcelino Referrals: Dayday Cerda MD [Primary Care Provider] - Patient Instructions: Abdominal Pain (ED), Opioid Safety, Pain Management Coding Level of Care Code ED Cuprous Chloride Operator for Claudia Dover
[2023-03-17] MEDS: fentaNYL 50 mcg/mL INJ 2mL IVP (11:36)
[2023-03-17] MEDS: ondansetron 2 mg/ML SDV 2 mL 4 MG IVP (11:36)
[2023-03-17] MEDS: iohexol 350 mg/mL 500 mL Btl (per mL) IV (12:08)
--- NOTE | 2023-03-17 13:01 | US_ITS ---
WS: [id number] US transvaginal [id number] HISTORY: pelvic mass COMPARISON: CT 03/17/2023. This is a significantly limited evaluation of the pelvic structures. Poor visualization of the uterus and the endometrium and the ovaries. There is thickening of these endocervical canal but poorly visu alized. The endometrium is markedly limited. No adnexal mass. Small amount of free fluid. IMPRESSION: 1. Severely limited evaluation of the uterus and endometrium at adnexa. 2. Heterogeneous appearance to the endocervical component of the uterus. Suspicious for mass as seen on the recent CT but cannot described in detail the involvement. 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
[2023-03-17 13:21] LABS: Add Urine Microscopic? NO; Charge for UA Resulting for Rev
[2023-03-17 13:25] LABS: Bilirubin Urine Neg (Negative); Blood Urine Neg (Negative); Glucose Urine UA Norm (Normal); Ketones Urine 1+ (Negative); Leukocyte Esterase Urine Negative (Negative); Nitrate Urine Negative (Negative); Protein Urine Neg (Negative); Specific Gravity, Urine 1.015 (1.005-1.030); Urine Appearance Clear (CLEAR); Urine Color Yellow (Yellow); Urobilinogen Urine Norm (Negative); pH Urine 5 (5-7)
== END 2023-03-17 15:44 | disposition home or self-care (01) ==
PROVIDERS: Emergency Provider Emergency Medicine; PCP Family Medicine
DX: R19.00 Intra-abdominal and pelvic swelling, mass and lump, unspecified site (principal); R10.31 Right lower quadrant pain; Z79.82 Long term (current) use of aspirin; Z79.84 Long term (current) use of oral hypoglycemic drugs; I10 Essential (primary) hypertension; E78.5 Hyperlipidemia, unspecified; E11.9 Type 2 diabetes mellitus without complications; I25.10 Atherosclerotic heart disease of native coronary artery without angina pectoris; Z77.22 Contact with and (suspected) exposure to environmental tobacco smoke (acute) (chronic)
CPT/HCPCS: 36415; 74177; 76830; 80053; 81003; 83690; 85025; 96361; 96374; 96375; 99285; J2405; J3010; J7030; Q9967

== ENCOUNTER → 2023-03-18 08:36 | Outpatient (BNVA) | payer MEDICARE, SELFPAY | PROVIDERS: PCP Family Medicine; Visit Provider Surgery | DX: R19.00 Intra-abdominal and pelvic swelling, mass and lump, unspecified site (principal) | CPT/HCPCS: 71046; 99204 ==

== ENCOUNTER 2023-03-22 15:49 | Inpatient (IN) | payer MEDICARE, SELFPAY ==
[2023-03-22] VITALS (7 sets, daily range): BP systolic 91–127; BP diastolic 47–67; PULSE 59–71; RESP 16–18; TEMP 36.3–36.8; O2SAT 93–96; BMI 35.4; BMI 37.0
--- NOTE | 2023-03-22 16:26 | ECG_ITS ---
[facility] Test Date: 2023-03-22 Pat Name: Dia Cat Department: Room: Gender: Female Last Dipper: : 1945 Requested By: Rodrigo Wallace Order Number: [id number] Nicole MD: Rickie Fung M.D. Measurements Intervals [place] Rate: 59 P: 22 DC: 184 QRS: -13 QRSD: 76 T: 21 QT: 378 QTc: 377 Interpretive Statements SINUS BRADYCARDIA Compared to ECG 03/06/2023 09:57:37 No significant changes Electronically Signed On 03-22-2023 19:54:54 BOMBSIGHT SPECIALIST by Rickie Fung M.D. [id number]
[2023-03-22] MEDS: sodium chloride 0.9% 1,000 ML 999 ML IV ×2 (17:30→19:33)
--- NOTE | 2023-03-22 17:35 | ECG_ITS ---
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 Measurements Intervals [place] Rate: 59 P: 39 MT: 181 QRS: 16 QRSD: 80 T: 34 QT: 385 QTc: 384 Interpretive Statements SINUS BRADYCARDIA Compared to ECG 03/22/2023 15:59:24 No significant changes Electronically Signed On 03-22-2023 19:55:55 LUMBER TYING MACHINE OPERATOR by Rickie Fung M.D. [id number]
--- NOTE | 2023-03-22 17:35 | XRR_ITS ---
PROCEDURE INFORMATION: Exam: XR Chest Exam date and time: 03/22/2023 5:43 PM Age: 77 years old Clinical indication: Other: Abd pain; Additional info: Chest pain TECHNIQUE: Imaging protocol: Radiologic exam of the chest. Views: 1 view. COMPARISON: CR XR chest 2V* [id number] 03/18/2023 10:07 AM FINDINGS: Lungs: No focal consolidation. Subsegmental bibasilar atelectasis. Pleural spaces: No evidence of pneumothorax or pleural effusion. Heart/Mediastinum: Cardiomediastinal silhouette is within normal limits. Bones/joints: No evidence of acute osseous abnormality. XR/XR chest 1V portable [id number] IMPRESSION: 1. No acute cardiopulmonary abnormality.
--- NOTE | 2023-03-22 17:50 | W.ED.ABDPA2 ---
HPI - Abdominal Pain General: Chief Complaint: Abdominal Pain Stated Complaint: ABD PAIN Time Seen by Provider: 03/22/23 17:17 Source: patient and family Mode of arrival: ambulatory Limitations: no limitations History of Present Illness: Patient is a nice 77-year-old individual with a history of HTN, dyslipidemia, CAD, diabetes, and recent diagnosis of abdominal mass here for complaints of abdominal pain and weakness related to recent bowel prep. 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 She had findings suspicious for endometrial neoplasm. Gallbladder tumor also was not excluded on her CT scan. She had enlarged retroperitoneal and iliac lymph nodes. Patient states she followed up with general surgeon Dr. Restrepo who scheduled her for colonoscopy tomorrow. Patient states she started her bowel prep regimen today and states because of the many episodes of diarrhea she became very weak and sweaty. At one point she did report chest pain but states that it felt more like acid reflux. She has reported abdominal pain/fullness and fatigue for a few weeks now. MD elicited complaint: abdominal pain Onset (ago): week(s) Pain Consistency: constant Location: Diffuse Severity: moderate Radiation: none Migration to: no migration Exacerbating factors: other (recent bowel prep) Relieving factors: nothing Associated Symptoms: Reports diarrhea (following bowel prep) and nausea; Denies chills, dysuria, fever(s), syncope and vomiting Review of Systems Const: Reports: fatigue and malaise; Denies: fever(s), chills or body aches Card: Reports: chest pain (burning-reports it feels like acid reflux); Denies: palpitations, irregular heart rhythm, edema, swelling of feet/ankles, lightheadedness, syncope, pre-syncope, dyspnea on exertion, orthopnea, leg pain with exertion or acrocyanosis Resp: Denies: dyspnea, productive cough or non-productive cough GI: Reports: abdominal pain, nausea and diarrhea (following bowel prep); Denies: vomiting : Denies: flank pain, difficulty voiding, dysuria, urinary frequency, urinary urgency or urinary hesitancy Musc: Denies: neck pain, back pain, extremity pain or joint pain Skin/Breast: Denies: rash Neuro: Reports: other (generalized weakness); Denies: headache(s), numbness in extremities, weakness in extremities or sensory changes [facility], [facility] PFSH: Medical History Back pain Hypertension Dyslipidemia Diabetes mellitus CAD (coronary artery disease) Surgical History S/P coronary artery stent placement Family History Other Cancer Diabetes Myocardial infarction Social History Smoking and tobacco/nicotine status: never used tobacco/nicotine Second hand smoke exposure: Yes Alcohol intake: never Substance/Drug Use: never Additional social history: 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) Physical Exam Const: COMMON NORMALS: no acute distress, patient oriented x3, no limitations, alert and well nourished GENERAL APPEARANCE: cooperative NUTRITIONAL APPEARANCE: obese ORIENTATION/CONSCIOUSNESS: Yes awake, Yes oriented to person, Yes oriented to place and Yes oriented to time HENMT: COMMON NORMALS: normocephalic and atraumatic HEAD & SCALP: normal to inspection, normocephalic and atraumatic Eye: GENERAL EYE: appearance normal, both eyes and all related structures and normal light reflex DIRECT OPHTHALMOSCOPY: Yes normal light reflex Resp: COMMON NORMALS: normal respiratory effort and clear to auscultation bilaterally AUSCULTATION: clear to auscultation bilaterally Cardio: COMMON NORMALS: regular rate and regular rhythm RATE: regular rate RHYTHM: regular rhythm GI: INSPECTION: Yes normal to inspection AUSCULTATION: Yes normoactive bowel sounds PALPATION: Yes Tenderness to palpation present (GI) (throughout upper abdomen mainly to RUQ, LUQ; fullness) : COMMON NORMALS: Yes no CVA tenderness BLADDER/KIDNEY EXAM: Yes no CVA tenderness Back/Pelvis: COMMON NORMALS: no CVA tenderness and thoracic and lumbar spine normal to inspection Extremity: COMMON NORMALS: normal to inspection GENERAL: Yes normal exam except as noted Neuro: AYNELY COMA SCALE: document GCS findings Yanely coma scale eye opening: Spontaneous Yanely coma scale verbal response: Orientated Yanely coma scale motor response: Obey commands [place] coma scale total score: 15 COMMON NORMALS: patient oriented x3, moves all extremities, no focal motor deficits and no sensory deficits noted SENSORIUM/ORIENTATION: Yes alert, Yes oriented to person, Yes oriented to place and Yes oriented to time Skin: COMMON NORMALS: no rashes or lesions noted GENERAL SKIN EXAM: no rashes or lesions noted Course Consultations: Consultation #1: Dr. Lai-accepts hospitalization Vital Signs: Vital signs: Vital Signs Temperature 98.2 F 03/22/23 16:02 Pulse Rate 62 03/22/23 19:00 Respiratory Rate 18 03/22/23 19:00 Blood Pressure 114/50 03/22/23 19:00 Pulse Oximetry 96 03/22/23 19:00 Oxygen Delivery Me thod Room Air 03/22/23 19:00 MDM - Abdominal Pain Medical Decision Making Patient is a nice 77-year-old female recently diagnosed with significant abnormal CT abdomen/pelvic findings. She was scheduled for EGD/colonoscopy by Dr. Restrepo tomorrow and was undergoing bowel prep today. She states the diarrhea has made her incredibly weak/faint and sweaty. She arrives hypotensive. This is improving with IV fluids. She was noted to be in acute renal failure with a creatinine of 5.8 which is significantly elevated from 1.35 days ago. She has other electrolyte derangements including hyponatremia, hyperkalemia without EKG changes, a gap of almost 24. Patient will need to be admitted for further workup and evaluation. Have spoken to hospitalist Dr. Lai for admission. Dr. Wallace aware of patient and agrees with care and plan for admission. Lab Data 03/22/23 17:28 03/22/23 17:28 Labs/Radiology: Radiology Impressions Chest X-Ray 03/22/23 17:35 IMPRESSION: 1. No acute cardiopulmonary abnormality. Laboratory Results WBC 17.07 10^3/uL (3.29-11.43) H 03/22/23 17:28 RBC 5.24 10^6/uL (3.85-5.65) 03/22/23 17:28 Hgb 13.90 g/dL (11.27-16.99) 03/22/23 17:28 Hct 43.5 % (36-47) 03/22/23 17:28 MCV 83.0 fl (85-98) L 03/22/23 17: MCH 26.5 pg (27-33) L 03/22/23 17:28 MCHC 32.0 g/dL (30-55) 03/22/23 17: RDW 14.0 % (12.1-15.1) 03/22/23 17: Plt Count 479 10^3/cmm (157-399) H 03/22/23 17: MPV 10.6 fL (7.4-10.4) H 03/22/23 17: Neut % (Auto) 87.6 % 03/22/23 17: Lymph % (Auto) 6.3 % 03/22/23 17: [place] % (Auto) 4.9 % 03/22/23 17: Eos % (Auto) 0.2 % 03/22/23: Baso % (Auto) 0.3 % 03/22/23: Neut # (Auto) 14.96 10^3/uL (1.8-7.7) H 03/22/23 17: Lymph # (Auto) 1.1 10^3/uL (0.8-4.8) 03/22/23: [place] # (Auto) 0.8 10^3/uL (0.2-0.9) 03/22/23 17: Eos # (Auto) 0.0 10^3/uL (0.0-0.8) 03/22/23 17: Baso # (Auto) 0.1 10^3/uL (0.0-0.1) 03/22/23 17: Nucleated RBC % (auto) 0 % 03/22/23: Nucleated RBCs # 0.0 /100WBC 03/22/23 17: Sodium 123 mmol/L (136-145) L 03/22/23 17:28 Potassium 5.8 mmol/L (3.5-5.1) H 03/22/23: Chloride 90 mmol/L (98-107) L 03/22/23 17: Carbon Dioxide 15 mmol/L (22-29) L 03/22/23 17:28 Anion Gap 23.8 (5-19) H 03/22/23 17:28 BUN 67 mg/dL (8-23) H 03/22/23 17:28 Creatinine 5.8 mg/dL (0.5-0.9) H* 01/23/24 17:28 GFR Calculation Not Reportable 03/22/23 17:28 Glucose 143 mg/dL (65-115) H 03/22/23 17:28 Calculated Osmolality 278 mOsm/kg (285-295) L 03/22/23 17:28 Calcium 8.8 mg/dL (8.5-10.5) 03/22/23 17:28 Magnesium 2.6 mg/dL (1.7-2.3) H 03/22/23 17:28 Total Bilirubin 0.4 mg/dL (0.15-1.2) 03/22/23 17:28 AST 16 U/L (0-32) 03/22/23 17:28 ALT 8 U/L (0-33) 03/22/23 17:28 Alkaline Phosphatase 100 U/L (35-105) 03/22/23 17:28 Troponin T Baseline 26 ng/L (0-10) H 03/22/23 17:28 Troponin T 120 Minute 24.33 ng/L (0-10) H 03/22/23 19:42 Delta Troponin T -1.67 ABS# (0-10) L 03/22/23 19:42 Total Protein 6.6 g/dL (6.6-8.7) 03/22/23 17:28 Albumin 3.5 g/dL (3.5-5.2) 03/22/23 17:28 Globulin 3.1 g/dL (1.3-4.6) 03/22/23 17:28 Lipase 51 U/L (13-60) 03/22/23 17:28 Urine Color Dark yellow (Yellow) 03/22/23 19:20 Urine Appearance Sl hazy (CLEAR) A 03/22/23 19:20 Urine pH 5 (5-7) 03/22/23 19:20 Ur Specific [place] 1.030 (1.005-1.030) 03/22/23 19:20 Urine Protein Neg (Negative) 03/22/23 19:20 Urine Glucose (UA) Norm (Normal) 03/22/23 19:20 Urine Ketones 1+ (Negative) H 03/22/23 19:20 Urine Blood 2+ (Negative) H 03/22/23 19:20 Urine Nitrate Negative (Negative) 03/22/23 19:20 Urine Bilirubin Neg (Negative) 03/22/23 19:20 Urine Urobilinogen 1 mg/dL (Negative) H 03/22/23 19:20 Ur Leukocyte Esterase Negative (Negative) 03/22/23 19:20 Urine RBC 5-10 /hpf (0-2) H 03/22/23 19:20 Urine WBC 5-10 /hpf (0-5) H 03/22/23 19:20 Ur Squamous Epith Cells 0-4 /hpf (0-5) H 03/22/23 19:20 Ur Transition Epith Cell 0-4 /hpf 03/22/23 19:20 Other Crystals Ca carbonate 10-15 /hpf 03/22/23 19:20 Amorphous Sediment Trace /hpf 03/22/23 19:20 Urine Bacteria 1+ /hpf (NONE) H 03/22/23 19:20 Hyaline Casts 40-55 /lpf H 03/22/23 19:20 Fine Granular Casts 5-10 /lpf H 03/22/23 19:20 Urine Mucus 1+ /hpf 03/22/23 19:20 All radiology interpretation(s) finalized by discharge Discharge Plan Discharge Patient Disposition: Admitted As Inpatient Clinical Impression: Acute renal failure Qualifiers: Acute renal failure type: unspecified Qualified Code(s): N17.9 - Acute kidney failure, unspecified Condition: Stable Coding Level of Care Code ED Director Of Technology for Claudia Dover
[2023-03-22 17:55] LABS: Basophils # 0.1 10^3/uL (0.0-0.1); Basophils % 0.3 %; Eosinophils % 0.2 %; Hematocrit 43.5 % (36-47); Lymphocytes # 1.1 10^3/uL (0.8-4.8); Lymphocytes % 6.3 %; Mean Corpuscular Hemoglobin 26.5 pg (27-33); Mean Platelet Volume 10.6 fL (7.4-10.4); Monocytes # 0.8 10^3/uL (0.2-0.9); Monocytes % 4.9 %; Neutrophils # 14.96 10^3/uL (1.8-7.7); Neutrophils % 87.6 %; Nucleated Red Blood Cells % 0 %; Platelet Count 479 10^3/cmm (157-399); Red Blood Count 5.24 10^6/uL (3.85-5.65); White Blood Count 17.07 10^3/uL (3.29-11.43)
[2023-03-22 17:57] LABS: Troponin(5th) Baseline 26 ng/L (0-10)
[2023-03-22] MEDS: ondansetron 2 mg/ML SDV 2 mL 4 MG IVP (18:03)
[2023-03-22] MEDS: lidocaine 2% viscous 15 ML, aluminum-mag hydrox-simethicon 30 ML, sucralfate oral liq 1 GM PO (18:04)
[2023-03-22 18:13] LABS: Alanine Aminotransferase 8 U/L (0-33); Albumin Level 3.5 g/dL (3.5-5.2); Alkaline Phosphatase 100 U/L (35-105); Anion Gap 23.8 (5-19); Aspartate Amino Transferase 16 U/L (0-32); Blood Urea Nitrogen 67 mg/dL (8-23); Calcium 8.8 mg/dL (8.5-10.5); Carbon Dioxide 15 mmol/L (22-29); Chloride 90 mmol/L (98-107); Creatinine Clr Calc Pharmacy 8.9606; Globulin 3.1 g/dL (1.3-4.6); Glucose 143 mg/dL (65-115); Lipase 51 U/L (13-60); Osmolality Calculated 278 mOsm/kg (285-295); Potassium 5.8 mmol/L (3.5-5.1); Sodium 123 mmol/L (136-145); Total Bilirubin 0.4 mg/dL (0.15-1.2); Total Protein 6.6 g/dL (6.6-8.7)
[2023-03-22 19:15] LABS: Magnesium 2.6 mg/dL (1.7-2.3)
[2023-03-22 19:40] LABS: Urine Color Dark Yellow (Yellow)
[2023-03-22 19:41] LABS: Add Urine Microscopic? YES; Bilirubin Urine Neg (Negative); Blood Urine 2+ (Negative); Glucose Urine UA Norm (Normal); Ketones Urine 1+ (Negative); Leukocyte Esterase Urine Negative (Negative); Nitrate Urine Negative (Negative); Protein Urine Neg (Negative); Urine Appearance SL Hazy (CLEAR); Urobilinogen Urine 1 mg/dL (Negative); pH Urine 5 (5-7)
[2023-03-22 19:59] LABS: Amorphous Sediment Urine TRACE /hpf; Bacteria Urine 1+ /hpf; Hyaline Casts Urine 40-55 /lpf; Mucus Urine 1+ /hpf; Other Crystals Urine CA CARBONATE 10-15 /hpf; Squamous Epithelial Cell Urine 0-4 /hpf (0-5); Transitional Epi Cells Urine 0-4 /hpf
[2023-03-22 20:00] LABS: Add Urine Culture? No
[2023-03-22 20:09] LABS: Troponin 5 2HR 24.33 ng/L (0-10); Troponin 5 2HR Delta -1.67 ABS# (0-10)
--- NOTE | 2023-03-22 20:11 | USR_ITS ---
PROCEDURE INFORMATION: Exam: US Abdomen, Limited; Right Upper Quadrant Exam date and time: 03/22/2023 9:00 PM Age: 77 years old Clinical indication: Bloating and other: F/u CT 03/22/23 = tumefactive sludge versus gb tumor, ascites , patient HX: Normal tbili = 0.4, normal ast = 16, normal alt = 8, normal alkphos = 100. ; Additional info: Ruq pain TECHNIQUE: Imaging protocol: Real time ultrasound of the abdomen with image documentation. Limited exam focused on the right upper quadrant. COMPARISON: US abdomen limited [id number] 03/10/2023 11:21 AM FINDINGS: Liver: Visualized hepatic parenchyma is mildly echogenic. The liver contour is grossly smooth. Right hepatic lobe measures 15.4 cm in length. There is moderate perihepatic free fluid. Gallbladder: There is dense layering sludge within the gallbladder. No cholelithiasis. No significant wall thickening or edema to suggest cholecystitis.The street inspector reports a negative sonographic Braun's sign. Biliary ducts: The CBD is nondilated, measuring 7 mm. No sonographic evidence of intraductal stone. Pancreas: Portions of the pancreas are not visualized secondary to bowel gas. Visualized portions are unremarkable. Right kidney: The right kidney is normal in echotexture and measures 10.9 cm in length. No evidence of hydronephrosis. US/US gall bladder [id number] IMPRESSION: 1. Biliary sludge without sonographic evidence of acute cholecystitis. 2. Moderate free fluid.
--- NOTE | 2023-03-22 20:11 | USR_ITS ---
PROCEDURE INFORMATION: Exam: US Retroperitoneal; Complete; Kidneys and Bladder Exam date and time: 03/22/2023 9:30 PM Age: 77 years old Clinical indication: Bloating and other: Juan Carlos TECHNIQUE: Imaging protocol: Real-time ultrasound of the retroperitoneum with image documentation. Complete exam focused on the kidneys and bladder. COMPARISON: US gall bladder [id number] 03/22/2023 9:00 PM FINDINGS: Right kidney: Right kidney measures 10.5 x 5.6 x 4.1 cm and is normal in echotexture. No hydronephrosis. Left kidney: Left kidney measures 9.3 x 5.2 x 5.3 cm and is normal in echotexture. No hydronephrosis. Urinary bladder: Not well visualized. Other: Moderate free fluid. US/US renal BI* [id number] IMPRESSION: 1. No hydronephrosis of either kidney. 2. Moderate free fluid.
--- NOTE | 2023-03-22 20:22 | P.HP_ITS ---
Providers/Chief Complaint 2 Admitting Physician: Josh Lai MD Primary Care Provider: Dayday Cerda MD Chief Complaint: ABD PAIN History of Present Illness Dia Cat is a 77 year old female with a past medical history of CAD, status post stenting to LAD, hypertension, hyperlipidemia, [id number] type 2 diabetes mellitus, who presents to [facility] for 2 to 3-week history of nausea, vomiting, abdominal pain, poor appetite, decreased oral intake. Patient tells me that for the last 2 to 3 weeks she has had nausea vomiting abdominal pain abdominal bloating, with decreased oral intake she tells me that whenever she eats her abdomen becomes bloated she feels nauseous that she vomits she came to the emergency room around 17 March, she was diagnosed with an abdominal mass she is tells me she was supposed to follow-up with gynecology next week, she saw Dr. Restrepo due to nausea vomiting abdominal fullness, he had ordered an EGD and colonoscopy and she was actually taking a bowel prep today but was not able to keep it in the bowel prep down had severe diarrhea so she came to the emergency room for evaluation. Denies any lightheadedness, dizziness, denies any alcohol use, no smoking, no history of NSAID use, no history of kidney failure, no flank pain, she does report that she has vaginal bleeding, this has been going on for the last 2 to 3 weeks, she is , has had bilateral tubal ligation, she did have an abnormal Pap smear 1 time, and she had an ablation, since then her Pap smears were normal, she stopped and Pap smears a 67, she has never had a Pap smear showing any form of cancer, no family history of uterine/ovarian cancers. She does report she for the last 24 hours has not been urinating much Review of Systems 2 Const: Reports: fatigue and malaise; Denies: fever(s) or chills Card: Denies: chest pain Resp: Denies: dyspnea GI: Reports: abdominal pain, nausea and vomiting : Reports: difficulty voiding; Denies: flank pain Medications/Allergies Home Medications Medication Instructions Recorded Confirmed Last Taken Type aspirin 81 mg tablet,delayed 81 mg PO BEDTIME 03/12/19 03/21/23 03/21/23 History release (Adult Low Dose Aspirin) cholecalciferol (vitamin D3) 125 125 mcg PO DAILY@12 1203/21/23 03/16/23 History mcg (5,000 unit) tablet (Vitamin D3) diclofenac sodium 75 mg 75 mg PO BID PRN gout pain #60 tabs 04/07/22 03/21/23 1 Week Ago Rx tablet,delayed release ~02/27/23 coenzyme Q10 100 mg capsule (Co 100 mg PO QPM 08/10/22 03/21/23 03/16/23 History Q-10) zinc gluconate 50 mg tablet 50 mg PO DAILY@12 08/10/22 03/21/23 03/16/23 History amlodipine 2.5 mg tablet 2.5 mg PO DAILY #90 tabs 09/01/22 03/21/23 03/21/23 Rx carvedilol 12.5 mg tablet 12.5 mg PO BID #180 tabs 01/03/23 03/21/23 03/21/23 Rx Collagen Peptides Powder 2 sc PO DAILY 03/06/23 03/21/23 03/16/23 History allopurinol 100 mg tablet 100 mg PO BEDTIME 03/06/23 03/21/23 03/21/23 History atorvastatin 40 mg tablet 40 mg PO BEDTIME 03/06/23 03/21/23 03/21/23 History lisinopril 40 mg tablet 40 mg PO QAM 03/06/23 03/21/23 03/21/23 History metformin 500 mg tablet 500 mg PO BID 03/06/23 03/21/23 03/21/23 History ondansetron 4 mg disintegrating 4 mg PO Q8H PRN nausea and 03/11/23 03/21/23 03/21/23 Rx tablet vomiting #30 tabs oxycodone 5 mg tablet 5 mg PO TID PRN pain 30 days #90 03/21/23 Unknown Rx tabs Allergies Allergy/AdvReac Type Severity Reaction Status Date / Time No Known Allergies Allergy Verified 03/11/23 08:41 PFSH Acute 2 PFSH: Medical History Back pain Hypertension Dyslipidemia Diabetes mellitus CAD (coronary artery disease) Surgical History S/P coronary artery stent placement Family History Other Cancer Diabetes Myocardial infarction Social History Smoking and tobacco/nicotine status: never used tobacco/nicotine Second hand smoke exposure: Yes Alcohol intake: never Substance/Drug Use: never Additional social history: 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) Vitals/I&O/Wt Last Vital Signs Temp 98.2 F 03/22/23 16:02 Pulse 62 03/22/23 19:00 Resp 18 03/22/23 19:00 BP 114/50 03/22/23 19:00 Pulse Ox 96 03/22/23 19:00 O2 Del Method Room Air 03/22/23 19:00 03/22/23 03/22/23 03/22/23 06:59 14:59 22:59 Intake Total 1000 / 1000 Balance 1000 / 1000 Weight last 48 hrs Weight 90.718 kg Physical Exam 2 Const: COMMON NORMALS: no acute distress and patient oriented x3 HENMT: COMMON NORMALS: normocephalic HEAD & SCALP: normocephalic Eye: COMMON NORMALS: Equal, round and reactive pupils present and EOMs intact bilaterally Neck/C-Spine: COMMON NORMALS: no JVD Lymph: LYMPHATIC: no lymphadenopathy noted Resp: COMMON NORMALS: normal respiratory effort, No retractions, No use of accessory muscles and clear to auscultation bilaterally AUSCULTATION: clear to auscultation bilaterally Cardio: COMMON NORMALS: no JVD, regular rate, regular rhythm, S1 normal heart sound present and S2 normal heart sound present RATE: regular rate RHYTHM: regular rhythm HEART SOUNDS: S1 normal heart sound present and S2 normal heart sound present GI: COMMON NORMALS: Normal to inspection, nondistended, normoactive bowel sounds present, Soft to palpation and non-tender Extremity: COMMON NORMALS: no calf tenderness and no pedal edema Neuro: COMMON NORMALS: patient oriented x3, CN's II-XII intact bilaterally and moves all extremities Psych: COMMON NORMALS: mental status grossly normal Data 03/22/23 17:28 03/22/23 17:28 A&P Assessment and plan (1) Acute renal failure: Qualifiers: Acute renal failure type: unspecified Qualified Code(s): N17.9 - Acute kidney failure, unspecified (2) Hyponatremia: (3) Metabolic acidosis: (4) Hyperkalemia: (5) Leukocytosis: (6) Uterine mass: (7) Abdominal ascites: (8) Retroperitoneal lymphadenopathy: Plan Acute renal failure -With hypochloremic metabolic acidosis with hyperkalemia and hyponatremia -Uremia -Creatinine 5.8 -Patient reports lack of urine output -Etiology likely multifactorial from dehydration, poor oral intake, nausea, vomiting, diarrhea, possible contrast-induced nephropathy Plan -Please Alejandre catheter -Monitor urine output -Consulted nephrology, started on bicarb drip -For hyperkalemia will give D50, insulin -Repeat BMP and 9 PM -Hyponatremia likely sec to dehydration, monitor serum sodium -CPK -Continue telemetry monitoring -Full code -Heparin for DVT prophylaxis CT show uterine mass, with retroperitoneal and bilateral iliac lymphadenopathy, with omental metastasis -CA125 ordered -Will consider consulting FIELD SPEC here in the hospital -Has had history of abnormal Pap smear Does complain of nausea, vomiting, abdominal pain -Patient has an abnormal gallbladder on CT -Order gallbladder ultrasound -Lipase, GGT -Intractable nausea vomiting, scopolamine patch, Zofran, Reglan, promethazine as needed Leukocytosis, etiology undetermined, Pro-Sergei, CRP Type 2 diabetes mellitus, low-dose sliding scale Attestations 2 Medical Necessity Statement*: Patient requires hospitalization, inpatient, greater than 2 minutes, for acute renal failure, hyperkalemia, metabolic acidosis, with concern for uterine mass, with metastasis to retroperitoneal lymph nodes, peritoneal carcinomatosis, gallbladder sludge, with nausea, vomiting, intractable Diagnoses Acute renal failure N17.9 Acute renal failure type: unspecified Hyponatremia E87.1 Metabolic acidosis E87.20 Hyperkalemia E87.5 Leukocytosis D72.829 Uterine mass N85.8 Abdominal ascites R18.8 Retroperitoneal lymphadenopathy R59.0
[2023-03-22 20:41] LABS: Anion Gap 26.9 (5-19); Blood Urea Nitrogen 68 mg/dL (8-23); C Reactive Protein 84.1 mg/L (0.0-4.9); Calcium 9.1 mg/dL (8.5-10.5); Carbon Dioxide 12 mmol/L (22-29); Chloride 91 mmol/L (98-107); Creatine Phosphokinase 98 U/L (26-192); Creatinine Clr Calc Pharmacy 9.2806; Glucose 143 mg/dL (65-115); Lipase 49 U/L (13-60); Osmolality Calculated 280 mOsm/kg (285-295); Potassium 5.9 mmol/L (3.5-5.1); Sodium 124 mmol/L (136-145)
[2023-03-22 20:49] LABS: Procalcitonin 0.24 ng/mL (0-0.5)
--- OUTSIDE RECORDS SUMMARY | 2023-03-22 21:31 | XMS_ITS | Patient Health Record ---
Author Name Unknown Organization [facility] Address [address] [place] [address] Care Team Providers Care Component Assembler Supervisor Name Role Phone Dayday Cerda MD Primary Care Provider Sushilaa Roc Joy Unavailable [phone] ALLERGIES No Known Allergies REASON FOR REFERRAL Reason Solitary Pulm Nodule Scheduled 03/16/23 @ 1:20 PM Diagnosis 1 Solitary pulmonary n odule (R91.1) Referring Provider First Name Dayday Referring Provider Last Name Zaida Referring Provider Speciality Family Med icine Referred Organization [facility] Referred Provider Roc Ring Referred Address [address] [place] [address] [address] [place], [place],[address],[place] Referred Provider Specialty Pulmonary Di seases General Notes Idalia Nagy 024 05:02:29 PM >Scheduled 03/16/23 @ 1:20 PM Referral Priority Routine MEDICATIONS Medication SIG (Take, Route, Frequency, Duration) Notes Start Date End Date Status Omeprazole 40 MG 1 capsule 30 minutes before morning meal Orally Once a day Active Atorvastatin Calcium 40 MG 1 tablet Oral ly Once a day Active CoQ-10 30 MG as directed Orally Active Carvedilol 12.5 MG 1 tablet with food O rally Twice a day Active Zinc 100 MG 1 tablet Orally Once a day Active metFORMIN HCl 500 MG 1 tablet with a fer l Orally Once a day Active Calcium + D3 Active Lisinopril 40 MG 1 tablet Orally Once a day Active Aspirin 81 81 MG 1 tablet Orally Once a day Active Allopurinol 100 MG 1 tablet Orally Once a day Active Vitamin B12 100 MCG as directed Orally Active amLODIPine Besylate 2.5 MG 1 tablet Oral ly Once a day Active SOCIAL HISTORY Tobacco Use: Social History Observation Description Date Details (start date - stop date) Never Smoker NA - NA Sex Assigned At : Social History Observation Description Sex Assigned At Unknown Tobacco Use/Smoking Question Answer Notes Are you a nonsmoker PROBLEMS Problem Type ICD Code Onset Dates Problem Status W/U Status Risk SNOMED Code Notes Problem Solitary pulmonary nodule (R91.1) Active confirmed Solitary pulmonary nodule (199194036) VITAL SIGNS Heart Rate 68 /min 03/16/2023 Temperature 97.7 degrees Fahrenheit 03/16/2023 Height-cm 160.02 cm 03/16/2023 Oximetry 97 % 03/16/2023 Blood pressure diastolic 60 mm Hg 03/16/2023 Weight-kg 92.6 kg 03/16/2023 Height 63 in 03/16/2023 Blood pressure systolic 107 mm Hg 03/16/2023 Weight 204.15 lbs 03/16/2023 BMI 36.16 kg/m2 03/16/2023 Encounters Encounter Location Date Provider Diagnosis [facility] [address] [place] [address] 03/11/2023 Roc Ring [facility] [address] [place] [address] [place] [address] 03/16/2023 Roc Ring Solitary pulmonary nodule R91.1 ASSESSMENTS Encounter Date Diagnosis Assessment Notes Treatment Notes Treatment Clinical Notes 03/16/2023 Solitary pulmonary nodule (ICD-10 - R91.1) Obtain PET/CT imaging. 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 She is scheduled to see a surgeon next week for evaluation. 03/16/2023 Other I, Jil Alberto, am scribing for, and in the presence of Dr. Roc Ring. I, Dr. Roc Ring, personally performed the services described in this documentation, as scribed by Jil Alberto in my presence, and it is both accurate and complete. PLAN OF TREATMENT Future Test Test Name Order Date zzzPET Skullbase To Mid [id number] 02/28 Next Appt Details Provider Name:Roc Ring, 04/06/2023 10:50:00 AM, [address] [place] [address] [place], [address], Insurance Providers Payer Name Payer Address Payer Phone Subscriber Number Group Number Insured Name Patient Relationship to Insured Coverage Start Date Coverage End Date [facility] Aidan [address] [place] [address] [id number] Dia Cat Self - patient is the insured MEDICAL (GENERAL) HISTORY Medical History History ICD Code mumps heart disease arthritis dibetes back trouble high blood pressure Surgical History Surgery Date(Month/Year) stent 2002
--- NOTE | 2023-03-22 21:53 | PC.NURSE ---
Ultrasound at bedside
[2023-03-22 22:55] LABS: Anion Gap 20.5 (5-19); Blood Urea Nitrogen 67 mg/dL (8-23); Calcium 8.3 mg/dL (8.5-10.5); Carbon Dioxide 15 mmol/L (22-29); Chloride 95 mmol/L (98-107); Creatinine Clr Calc Pharmacy 9.8059; Glucose 125 mg/dL (65-115); Osmolality Calculated 281 mOsm/kg (285-295); Potassium 5.5 mmol/L (3.5-5.1); Sodium 125 mmol/L (136-145)
[2023-03-22 23:18] LABS: Chol HDL Ratio 2.68 mg/dL (0.0-4.40); Cholesterol 91 mg/dL (0-200); HDL Cholesterol 34 mg/dL (60-100); LDL Cholesterol Calculated 39 mg/dL (50-129); LDL HDL Ratio 1.15 RATIO (0.00-3.22); Triglycerides 91 mg/dL (0-150)
[2023-03-22 23:30] LABS: Estmated Average Glucose 146; Hemoglobin A1C 6.7 % (4.0-6.0)
[2023-03-23] VITALS (13 sets, daily range): BP systolic 104–131; BP diastolic 54–72; PULSE 61–76; RESP 14–18; TEMP 36.4–36.8; O2SAT 92–96
[2023-03-23 00:05] LABS: CA 125 490.2 U/mL (0-35); Gamma Glutamyl Transferase 9 U/L (5-36)
[2023-03-23] MEDS: dextrose 50% syringe 50 mL IVP (00:16)
[2023-03-23] MEDS: aspirin 81 mg EC Tablet PO ×2 (00:16→21:46)
[2023-03-23] MEDS: insulin regular-human 100 units/1 mL 10 UNIT IVP (00:16)
[2023-03-23] MEDS: heparin 5,000 unit/mL INJ 1 mL 5000 UNIT SUBCUT ×3 (00:17→21:46)
[2023-03-23] MEDS: pantoprazole 40 mg SDV IVP ×2 (00:17→21:53)
[2023-03-23] MEDS: scopolamine 1.5 Patch 1 PATCH TRANSDERMA (00:18)
[2023-03-23] MEDS: sodium polystyrene sulfonate 15 gm/60 mL Btl PO (00:18)
[2023-03-23] MEDS: sodium bicarbonate 50 MEQ in sodium chloride 0.45% 1,000 ML 100 MEQ IV ×3 (00:19→20:49)
[2023-03-23 04:14] LABS: Basophils % 0.3 %; Eosinophils # 0.1 10^3/uL (0.0-0.8); Eosinophils % 0.4 %; Hematocrit 37.4 % (36-47); Lymphocytes # 1.3 10^3/uL (0.8-4.8); Lymphocytes % 9.1 %; Mean Corpuscular HGB Conc 32.9 g/dL (30-55); Mean Corpuscular Hemoglobin 26.9 pg (27-33); Mean Corpuscular Volume 81.7 fl (85-98); Mean Platelet Volume 10.4 fL (7.4-10.4); Monocytes # 1.6 10^3/uL (0.2-0.9); Monocytes % 11.7 %; Nucleated Red Blood Cells % 0 %; Platelet Count 423 10^3/cmm (157-399); Red Blood Count 4.58 10^6/uL (3.85-5.65); Red Cell Distribution Width 14.1 % (12.1-15.1); White Blood Count 13.84 10^3/uL (3.29-11.43)
[2023-03-23 04:38] LABS: Alanine Aminotransferase 7 U/L (0-33); Albumin Level 2.9 g/dL (3.5-5.2); Alkaline Phosphatase 82 U/L (35-105); Anion Gap 20.1 (5-19); Aspartate Amino Transferase 14 U/L (0-32); Blood Urea Nitrogen 69 mg/dL (8-23); Calcium 8.5 mg/dL (8.5-10.5); Carbon Dioxide 17 mmol/L (22-29); Chloride 95 mmol/L (98-107); Creatinine Clr Calc Pharmacy 9.8641; Globulin 3.2 g/dL (1.3-4.6); Glucose 134 mg/dL (65-115); Magnesium 2.5 mg/dL (1.7-2.3); Osmolality Calculated 286 mOsm/kg (285-295); Phosphorus 6.5 mg/dL (2.5-4.5); Potassium 5.1 mmol/L (3.5-5.1); Sodium 127 mmol/L (136-145); Total Bilirubin 0.4 mg/dL (0.15-1.2); Total Protein 6.1 g/dL (6.6-8.7)
[2023-03-23 07:12] LABS: Glucose Point of Care 117 mg/dL (70-110)
--- NOTE | 2023-03-23 07:12 | P.CONIM_ITS ---
Providers/Reason For Consult 2 Consulting Physician/Specialty*: kommana/nephrology Reason for Consult*: Acute kidney injury, metabolic acidosis Attending Physician: Josh Lai MD Primary Care Provider: Dayday Cerda MD History of Present Illness History of Present Illness Dia Cat is a 77 year old female Patient is a 77-year-old male with past medical history of coronary artery disease with prior stents, hypertension, dyslipidemia, diabetes was initially seen in the emergency department on March [address] scan of the abdomen was done at that time which showed possible endometrial malignancy along with question peritoneal carcinomatosis and ascites. Patient was referred to gynecology and also referred to general surgery due to persistent nausea vomiting and abdominal fullness. CT at that time also showed small pulmonary nodules. Patient presents back to the emergency department due to worsening nausea vomiting and decreased appetite. Patient actually was doing the bowel prep for possible colonoscopy but was not able to tolerate and came to ER. Patient has normal creatinine 2 weeks ago. Now presents with a creatinine above 5 associated with metabolic acidosis as well as hyponatremia. Home meds include diclofenac tablets even though patient states she does not use them often maybe once or twice in the month. Other meds include lisinopril and metformin. Patient was started on bicarbonate drip with slight improvement in the bicarbonate levels and creatinine remains same at 5.4. 1. Acute kidney injury: Prerenal likely from poor p.o. intake associated with nausea and vomiting. Will continue with a bicarbonate drip for now, no indication for dialysis. Will also give IV albumin 25 g every 8 hours, avoid nephrotoxins and contrast studies if possible 2. Metabolic acidosis: Likely from DEANDRE and poor intake, on bicarbonate drip 3. Hyponatremia, hypovolemic, monitor, improving 4. 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 Intractable nausea and vomiting,, supposed to get EGD and colonoscopy Patient evaluated using audiovisual cart. Time spent 40 minutes. Review of Systems 2 Narrative: Other review of systems negative Medications/Allergies Home Medications Medication Instructions Recorded Confirmed Last Taken Type aspirin 81 mg tablet,delayed 81 mg PO BEDTIME 03/12/19 03/23/23 03/21/23 History release (Adult Low Dose Aspirin) cholecalciferol (vitamin D3) 125 125 mcg PO DAILY@12 02/10/20 03/23/23 03/16/23 History mcg (5,000 unit) tablet (Vitamin D3) diclofenac sodium 75 mg 75 mg PO BID PRN gout pain #60 tabs 04/07/22 03/23/23 1 Week Ago Rx tablet,delayed release ~02/27/23 coenzyme Q10 100 mg capsule (Co 100 mg PO QPM 08/10/22 03/23/23 03/16/23 History Q-10) zinc gluconate 50 mg tablet 50 mg PO DAILY@12 08/10/22 03/23/23 03/16/23 History amlodipine 2.5 mg tablet 2.5 mg PO DAILY #90 tabs 09/01/22 03/23/23 03/22/23 Rx carvedilol 12.5 mg tablet 12.5 mg PO BID #180 tabs 01/03/23 03/23/23 03/22/23 Rx Collagen Peptides Powder 2 sc PO DAILY 03/06/23 03/23/23 03/16/23 History allopurinol 100 mg tablet 100 mg PO BEDTIME 03/06/23 03/23/23 03/21/23 History atorvastatin 40 mg tablet 40 mg PO BEDTIME 03/06/23 03/23/23 03/21/23 History lisinopril 40 mg tablet 40 mg PO QAM 03/06/23 03/23/23 03/22/23 History metformin 500 mg tablet 500 mg PO BID 03/06/23 03/23/23 03/22/23 History ondansetron 4 mg disintegrating 4 mg PO Q8H PRN nausea and 03/11/23 03/23/23 03/21/23 Rx tablet vomiting #30 tabs oxycodone 5 mg tablet 5 mg PO TID PRN pain 30 days #90 03/21/23 03/23/23 Unknown Rx tabs omeprazole 40 mg capsule,delayed 40 mg PO DAILY 03/23/23 03/23/23 03/22/23 History release Allergies Allergy/AdvReac Type Severity Reaction Status Date / Time No Known Allergies Allergy Verified 03/11/23 08:41 Current Medications Generic Name Dose Route Start Last Admin Trade Name Freq PRN Reason Stop Dose Admin Aspirin 81 mg 03/22/23 22:50 03/23/23 00:16 Aspirin 81 Mg Ec Tablet PO 81 mg BEDTIME TED Administration Heparin Sodium (Porcine) 5,000 unit 03/22/23 22:50 03/23/23 00:17 Heparin 5,000 Unit/Ml Inj 1 Ml SUBCUT 5,000 unit Q12H TED Administration Sodium Bicarbonate 50 meq/ 1,050 mls @ 100 mls/hr 03/22/23 23:15 03/23/23 00:19 Sodium Chloride IV 100 mls/hr .[id number] TED Administration Pantoprazole Sodium 40 mg 03/22/23 22:50 03/23/23 00:17 Pantoprazole 40 Mg Sdv IVP 40 mg Q24H TED Administration PFSH Acute 2 PFSH: Medical History Back pain Hypertension Dyslipidemia Diabetes mellitus CAD (coronary artery disease) Surgical History S/P coronary artery stent placement Family History Other Cancer Diabetes Myocardial infarction Social History Smoking and tobacco/nicotine status: never used tobacco/nicotine Second hand smoke exposure: Yes Alcohol intake: never Substance/Drug Use: never Additional social history: 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) Vitals/I&O/Wt Last Vital Signs Temp 98.3 F 03/23/23 04:00 Pulse 61 03/23/23 05:49 Resp 17 03/23/23 04:00 BP 120/72 03/23/23 04:00 Pulse Ox 95 03/23/23 04:00 O2 Del Method Room Air 03/22/23 22:57 03/22/23 03/23/23 03/23/23 22:59 06:59 14:59 Intake Total 2480 / 2480 120 / 2600 Output Total 150 / 150 Balance 2330 / 2330 120 / 2450 Weight last 48 hrs Weight 96.388 kg Weight 94.937 kg Weight 90.718 kg Weight 90.718 kg Physical Exam 2 Narrative: Patient is awake alert no acute distress, Urinary Catheter Management: Alejandre: Cath Placed During This Visit: yes Reason for Continuing Indwelling Catheter: Acute Urinary Retention or Obstruction Urinary Catheter Date of Insertion: 03/23/23 Urinary Catheter Time of Insertion: 02:05 Data 03/23/23 03:58 03/23/23 03:58 A&P Assessment and plan (1) Acute renal failure: Qualifiers: Acute renal failure type: unspecified Qualified Code(s): N17.9 - Acute kidney failure, unspecified Plan 1. Acute kidney injury: Prerenal likely from poor p.o. intake associated with nausea and vomiting. Will continue with a bicarbonate drip for now, no indication for dialysis. Will also give IV albumin 25 g every 8 hours, avoid nephrotoxins and contrast studies if possible 2. Metabolic acidosis: Likely from DEANDRE and poor intake, on bicarbonate drip 3. Hyponatremia, hypovolemic, monitor, improving 4. 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 Intractable nausea and vomiting,, supposed to get EGD and colonoscopy Patient evaluated using audiovisual cart. Time spent 40 minutes. Consult Attestations 2 Medical Necessity Statement: Per medicine team Coding Level of Care Code Acute Code for Chg Fwd Diagnoses Acute renal failure N17.9 Acute renal failure type: unspecified
[2023-03-23] MEDS: morphine 4 mg/mL SDV 1 mL 2 MG IVP (11:33)
[2023-03-23 11:36] LABS: Glucose Point of Care 132 mg/dL (70-110)
--- NOTE | 2023-03-23 16:04 | PC.NURSE ---
Dr. Moreno notified of patient asking for Oxycodone 5/325 TID PO PRN which is what patient was taking at home. Dr. Moreno stated to restart home pain medication.
[2023-03-23] MEDS: oxyCODONE-APAP 5-325 mg Tablet 1 TAB PO (16:14)
[2023-03-23 17:09] LABS: Glucose Point of Care 141 mg/dL (70-110)
[2023-03-23] MEDS: insulin lispro 100 unit/1 mL SUBCUT (17:17)
--- NOTE | 2023-03-23 17:39 | P.PN_ITS ---
Subjective 2 Subjective: No acute interim events. Patient evaluated by nephrology, appreciate recommendations. Continues to be on bicarb drip. Nausea is improving. Medications: Reviewed: Yes Vitals/I&O/Wt Last Vital Signs Temp 98.0 F 03/23/23 16:00 Pulse 65 03/23/23 16:00 Resp 18 03/23/23 16:14 BP 104/54 03/23/23 16:00 Pulse Ox 96 03/23/23 16:14 O2 Del Method Room Air 03/23/23 15:36 03/23/23 03/23/23 03/23/23 06:59 14:59 22:59 Intake Total 120 / 2600 1040 / 1040 Balance 120 / 2450 1040 / 1040 Weight last 48 hrs Weight 96.388 kg Weight 94.937 kg Weight 90.718 kg Weight 90.718 kg Physical Exam 2 Narrative: General: No acute distress, AO x3 HEENT: PERRLA, pupils bilaterally equal and reactive, pallors not present Chest: Normal vesicular breath sounds, no added sounds, equal good air entry bilaterally CVS: S1-S2 regular, no murmurs, no tachycardia, no gallops, no rubs Abdomen: Soft, nontender, no organomegaly, bowel sounds present Neuro: No focal deficits, no facial deformity, AO x3, power 5/5 in all limbs Urinary Catheter Management: Alejandre: Cath Placed During This Visit: yes Reason for Continuing Indwelling Catheter: Acute Urinary Retention or Obstruction Urinary Catheter Date of Insertion: 03/23/23 Urinary Catheter Time of Insertion: 02:05 Data 03/23/23 03:58 03/23/23 03:58 A&P Assessment and plan (1) Acute renal failure: Qualifiers: Acute renal failure type: unspecified Qualified Code(s): N17.9 - Acute kidney failure, unspecified (2) Hyponatremia: (3) Metabolic acidosis: (4) Hyperkalemia: (5) Leukocytosis: (6) Uterine mass: (7) Abdominal ascites: (8) Retroperitoneal lymphadenopathy: Plan Acute renal failure -With hypochloremic metabolic acidosis with hyperkalemia and hyponatremia -Uremia -Creatinine 5.8 -Patient reports lack of urine output -Etiology likely multifactorial from dehydration, poor oral intake, nausea, vomiting, diarrhea, possible contrast-induced nephropathy Plan -Please Alejandre catheter -Monitor urine output -Consulted nephrology, started on bicarb drip -For hyperkalemia will give D50, insulin -Repeat BMP and 9 PM -Hyponatremia likely sec to dehydration, monitor serum sodium -CPK -Continue telemetry monitoring -Full code -Heparin for DVT prophylaxis CT show uterine mass, with retroperitoneal and bilateral iliac lymphadenopathy, with omental metastasis -CA125 ordered -Will consider consulting NITROGLYCERIN NITRATOR OPERATOR BATCH here in the hospital -Has had history of abnormal Pap smear Does complain of nausea, vomiting, abdominal pain -Patient has an abnormal gallbladder on CT -Order gallbladder ultrasound -Lipase, GGT -Intractable nausea vomiting, scopolamine patch, Zofran, Reglan, promethazine as needed Leukocytosis, etiology undetermined, Pro-Sergei, CRP Type 2 diabetes mellitus, low-dose sliding scale Plan for today March 23, 2023. Overnight labs and H&P reviewed. Patient with prerenal DEANDRE. Continue bicarbonate drip. No current indication for dialysis. Avoiding nephrotoxins. Reassess with a.m. labs. Will attempt to reach out to COOLER DELIVERER if endometrial biopsy can be completed on this current admission. Gallbladder ultrasound shows biliary sludge without sonographic evidence of acute cholecystitis.renal ultrasound without hydronephrosis of either kidney. Moderate free fluid was noted. Attestations 2 Medical Necessity Statement*: continued admission for DEANDRE, monitor rneal function Coding Level of Care Code Acute Code for Chg Fwd Diagnoses Acute renal failure N17.9 Acute renal failure type: unspecified Hyponatremia E87.1 Metabolic acidosis E87.20 Hyperkalemia E87.5 Leukocytosis D72.829 Uterine mass N85.8 Abdominal ascites R18.8 Retroperitoneal lymphadenopathy R59.0
[2023-03-23 19:52] LABS: Glucose Point of Care 94 mg/dL (70-110)
[2023-03-24] VITALS (14 sets, daily range): BP systolic 109–135; BP diastolic 55–72; PULSE 60–72; RESP 15–18; TEMP 36.4–37.1; O2SAT 91–95
[2023-03-24 03:49] LABS: Basophils % 0.3 %; Eosinophils # 0.1 10^3/uL (0.0-0.8); Eosinophils % 0.4 %; Hematocrit 37.9 % (36-47); Lymphocytes # 1.2 10^3/uL (0.8-4.8); Lymphocytes % 8.4 %; Mean Corpuscular HGB Conc 32.7 g/dL (30-55); Mean Corpuscular Hemoglobin 26.8 pg (27-33); Mean Corpuscular Volume 81.9 fl (85-98); Mean Platelet Volume 10.9 fL (7.4-10.4); Monocytes # 1.3 10^3/uL (0.2-0.9); Neutrophils # 11.54 10^3/uL (1.8-7.7); Neutrophils % 81.6 %; Nucleated Red Blood Cells % 0 %; Platelet Count 366 10^3/cmm (157-399); Red Blood Count 4.63 10^6/uL (3.85-5.65); Red Cell Distribution Width 14.3 % (12.1-15.1); White Blood Count 14.13 10^3/uL (3.29-11.43)
[2023-03-24 04:12] LABS: Alanine Aminotransferase 7 U/L (0-33); Albumin Level 2.9 g/dL (3.5-5.2); Alkaline Phosphatase 89 U/L (35-105); Anion Gap 20.1 (5-19); Aspartate Amino Transferase 13 U/L (0-32); Blood Urea Nitrogen 68 mg/dL (8-23); Calcium 8.5 mg/dL (8.5-10.5); Carbon Dioxide 20 mmol/L (22-29); Chloride 93 mmol/L (98-107); Globulin 3.2 g/dL (1.3-4.6); Glucose 105 mg/dL (65-115); Osmolality Calculated 286 mOsm/kg (285-295); Potassium 5.1 mmol/L (3.5-5.1); Sodium 128 mmol/L (136-145); Total Bilirubin 0.3 mg/dL (0.15-1.2); Total Protein 6.1 g/dL (6.6-8.7)
[2023-03-24] MEDS: sodium bicarbonate 50 MEQ in sodium chloride 0.45% 1,000 ML 100 MEQ IV ×2 (06:20→16:56)
[2023-03-24] MEDS: oxyCODONE-APAP 5-325 mg Tablet 1 TAB PO ×2 (06:23→15:37)
[2023-03-24 06:40] LABS: Glucose Point of Care 101 mg/dL (70-110)
--- NOTE | 2023-03-24 10:29 | PC.CHAP ---
Pastoral Care Encounter/Spiritual Assessment Type of Contact [] Declined elementary supervisor visit [] Patient/Family/Request visit [] Outpatient visit [] Follow-up visit [] Physician referral [] Code/Alert [x] Routine visit [] Staff referral [] Actively dying [] Patient sleeping [] Family support [] [] Out of room [] Palliative care [] [x] Receiving care in room [] Pre-surgical visit [] Trauma [] Long length of stay [] ICU visit [] Other: Relational/Emotional Strength [x] Patient feels connected with others/family/visitors/staff [] Distress [] Loneliness/isolation [] Abandonment Spirituality of Patient [x] Person of Kandi [] Attends Restorationism of their Kandi [x] Believes in Prayer [] Reads Bible or Alevism materials [] There are Spiritual issues to be addressed Biotech Production Specialist Interventions [x] Prayer [x] Active listening [x] Non-anxious presence [x] Spiritual/emotional support [] Crisis/trauma care [x] Spiritual counseling [] Bereavement support [] Provided bereavement packet [] Provided Bible/devotional materials [] Provided toy/stuffed animal, coloring book to patient or family member [] Provided Communion [] Anointing/Mason [] Salvation [x] Completed spiritual assessment [] Other: Impact on Illness or Injury [] Angry [] Fearful [] Anxious [] Often cries [] Exhaustion [] Unable to work [] Unable to attend scientology [] Unable to walk/stand [] Unable to read [] Unable to drive [] Unable to eat/drink [] Unable to sleep [] Unable to be with family [] Patient intubated [] Other: Summary senior had back surgery feels good well go home for rehab and recovery has a good attitude Time spent with patient 10 mins
[2023-03-24 11:36] LABS: Glucose Point of Care 118 mg/dL (70-110)
--- NOTE | 2023-03-24 12:14 | PC.NURSE ---
Patient may be going for a procedure. Hold medication per Dr. Moreno
--- NOTE | 2023-03-24 12:21 | XR_ITS ---
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 Currently: No free air or retroperitoneal air. Moderate gaseous distention of the colon. Several mildly dilated small bowel loops in the left lower abdomen. Increased density in the pelvis. Likely this is due to distended urinary bladder or enlarged uterus. IMPRESSION: Nonspecific bowel gas pattern. No acute abnormality.
--- NOTE | 2023-03-24 12:42 | P.PN_ITS ---
Subjective 2 Subjective: Creatinine improving today to 4.7. Urine output 500 cc. Continues with bicarb infusion. Complaining of persisting abdominal pain. Abdomen noted to be more distended today with hypoactive bowel sounds. Abdominal x-ray ordered. Discussed case with MASTER BARBER, possibly endometrial biopsy while patient is inpatient as she is unlikely to make it to her outpatient appointment on Tuesday. Medications: Reviewed: Yes Vitals/I&O/Wt Last Vital Signs Temp 97.7 F 03/24/23 11:31 Pulse 68 03/24/23 11:31 Resp 17 03/24/23 11:31 BP 118/72 03/24/23 11:31 Pulse Ox 95 03/24/23 11:31 O2 Del Method Room Air 03/24/23 11:31 03/23/23 03/24/23 03/24/23 22:59 06:59 14:59 Intake Total 1250 / 2290 951.667 / 3241.667 Output Total 350 / 350 100 / 450 Balance 900 / 1940 851.667 / 2791.667 Weight last 48 hrs Weight 97.522 kg Weight 96.388 kg Weight 94.937 kg Weight 90.718 kg Weight 90.718 kg Physical Exam 2 Narrative: General: No acute distress, AO x3 HEENT: PERRLA, pupils bilaterally equal and reactive, pallors not present Chest: Normal vesicular breath sounds, no added sounds, equal good air entry bilaterally CVS: S1-S2 regular, no murmurs, no tachycardia, no gallops, no rubs Abdomen: Soft, distended, hypoactive bowel sounds Neuro: No focal deficits, no facial deformity, AO x3, power 5/5 in all limbs Urinary Catheter Management: Alejandre: Cath Placed During This Visit: yes Reason for Continuing Indwelling Catheter: Other Urinary Catheter Date of Insertion: 03/23/23 Urinary Catheter Time of Insertion: 02:05 Data 03/24/23 03:07 03/24/23 03:07 A&P Assessment and plan (1) Acute renal failure: Qualifiers: Acute renal failure type: unspecified Qualified Code(s): N17.9 - Acute kidney failure, unspecified (2) Hyponatremia: (3) Metabolic acidosis: (4) Hyperkalemia: (5) Leukocytosis: (6) Uterine mass: (7) Abdominal ascites: (8) Retroperitoneal lymphadenopathy: Plan Acute renal failure -With hypochloremic metabolic acidosis with hyperkalemia and hyponatremia -Uremia -Creatinine 5.8 -Patient reports lack of urine output -Etiology likely multifactorial from dehydration, poor oral intake, nausea, vomiting, diarrhea, possible contrast-induced nephropathy Plan -Please Alejandre catheter -Monitor urine output -Consulted nephrology, started on bicarb drip -For hyperkalemia will give D50, insulin -Repeat BMP and 9 PM -Hyponatremia likely sec to dehydration, monitor serum sodium -CPK -Continue telemetry monitoring -Full code -Heparin for DVT prophylaxis CT show uterine mass, with retroperitoneal and bilateral iliac lymphadenopathy, with omental metastasis -CA125 ordered -Will consider consulting RESEARCH AND DEVELOPMENT SPECIALIST here in the hospital -Has had history of abnormal Pap smear Does complain of nausea, vomiting, abdominal pain -Patient has an abnormal gallbladder on CT -Order gallbladder ultrasound -Lipase, GGT -Intractable nausea vomiting, scopolamine patch, Zofran, Reglan, promethazine as needed Leukocytosis, etiology undetermined, Pro-Sergei, CRP Type 2 diabetes mellitus, low-dose sliding scale Plan for today March 23, 2023. Overnight labs and H&P reviewed. Patient with prerenal DEANDRE. Continue bicarbonate drip. No current indication for dialysis. Avoiding nephrotoxins. Reassess with a.m. labs. Will attempt to reach out to MASTER BARBER if endometrial biopsy can be completed on this current admission. Gallbladder ultrasound shows biliary sludge without sonographic evidence of acute cholecystitis.renal ultrasound without hydronephrosis of either kidney. Moderate free fluid was noted. Plan for today March 24, 2023: Creatinine improving today. Urine output at 500 cc. Improving metabolic acidosis on bicarb infusion.Continues to complain of abdominal pain. No vomiting but nausea persisting. Hypoactive bowel sounds on exam. Abdominal x-ray ordered. +/- CT depending on findings on abdominal plain film. Suspecting ileus. [facility] BM on 03/23 am. Discussed case with MASTER BARBER on- call. Patient has an outpatient appointment on Tuesday, however she is unlikely to be able to make it to this appointment given her current inpatient stay. Requested endometrial biopsy as inpatient to expedite diagnostics of likely malignancy. Attestations 2 Medical Necessity Statement*: Continued inpatient stay for DEANDRE , monitoring renal fucntion and urine output, endometrial biopsy Coding Level of Care Code Acute Code for Chg Fwd Diagnoses Acute renal failure N17.9 Acute renal failure type: unspecified Hyponatremia E87.1 Metabolic acidosis E87.20 Hyperkalemia E87.5 Leukocytosis D72.829 Uterine mass N85.8 Abdominal ascites R18.8 Retroperitoneal lymphadenopathy R59.0
--- NOTE | 2023-03-24 13:40 | P.PN_ITS ---
Subjective 2 Subjective: NPO for a procedure Medications: Reviewed: Yes Vitals/I&O/Wt Last Vital Signs Temp 97.7 F 03/24/23 12:00 Pulse 68 03/24/23 12:00 Resp 17 03/24/23 12:00 BP 118/72 03/24/23 12:00 Pulse Ox 95 03/24/23 11:31 O2 Del Method Room Air 03/24/23 11:31 03/23/23 03/24/23 03/24/23 22:59 06:59 14:59 Intake Total 1250 / 2290 951.667 / 3241.667 Output Total 350 / 350 100 / 450 Balance 900 / 1940 851.667 / 2791.667 Weight last 48 hrs Weight 97.522 kg Weight 96.388 kg Weight 94.937 kg Weight 90.718 kg Weight 90.718 kg Physical Exam 2 Narrative: Patient is awake alert no acute distress, Urinary Catheter Management: Alejandre: Cath Placed During This Visit: yes Reason for Continuing Indwelling Catheter: Other Urinary Catheter Date of Insertion: 03/23/23 Urinary Catheter Time of Insertion: 02:05 Data 03/24/23 03:07 03/24/23 03:07 A&P Assessment and plan (1) Acute renal failure: Qualifiers: Acute renal failure type: unspecified Qualified Code(s): N17.9 - Acute kidney failure, unspecified Plan 1. Acute kidney injury: Prerenal likely from poor p.o. intake associated with nausea and vomiting. Will continue with a bicarbonate drip for now, no indication for dialysis. c/w IV albumin 25 g every 8 hours, avoid nephrotoxins and contrast studies if possible - renal fxn improving 2. Metabolic acidosis: Likely from DEANDRE and poor intake, on bicarbonate drip, improving 3. Hyponatremia, hypovolemic, monitor, improving 4. 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 Intractable nausea and vomiting,, supposed to get EGD and colonoscopy Patient evaluated using audiovisual cart. Time spent 20 minutes. Attestations 2 Medical Necessity Statement*: per medicine Coding Level of Care Code Acute Code for Chg Fwd Diagnoses Acute renal failure N17.9 Acute renal failure type: unspecified
[2023-03-24 16:41] LABS: Glucose Point of Care 110 mg/dL (70-110)
[2023-03-24] MEDS: HYDROmorphone 1 mg/mL INJ 1 mL IVP (20:43)
[2023-03-24 21:40] LABS: Glucose Point of Care 120 mg/dL (70-110)
[2023-03-24] MEDS: aspirin 81 mg EC Tablet PO (21:54)
[2023-03-24] MEDS: pantoprazole 40 mg SDV IVP (21:55)
[2023-03-25] VITALS (11 sets, daily range): BP systolic 115–141; BP diastolic 57–74; PULSE 66–81; RESP 16–18; TEMP 36.5–36.7; O2SAT 90–94
[2023-03-25] MEDS: sodium bicarbonate 50 MEQ in sodium chloride 0.45% 1,000 ML 100 MEQ IV ×2 (03:37→14:49)
[2023-03-25 03:55] LABS: Basophils # 0.1 10^3/uL (0.0-0.1); Basophils % 0.4 %; Eosinophils # 0.1 10^3/uL (0.0-0.8); Eosinophils % 0.9 %; Hematocrit 38.1 % (36-47); Lymphocytes # 1.4 10^3/uL (0.8-4.8); Lymphocytes % 8.4 %; Mean Corpuscular HGB Conc 33.3 g/dL (30-55); Mean Corpuscular Hemoglobin 27.3 pg (27-33); Mean Corpuscular Volume 81.9 fl (85-98); Mean Platelet Volume 10.8 fL (7.4-10.4); Monocytes % 12.3 %; Neutrophils # 12.52 10^3/uL (1.8-7.7); Neutrophils % 77.6 %; Nucleated Red Blood Cells % 0 %; Platelet Count 401 10^3/cmm (157-399); Red Blood Count 4.65 10^6/uL (3.85-5.65); Red Cell Distribution Width 14.5 % (12.1-15.1); White Blood Count 16.13 10^3/uL (3.29-11.43)
[2023-03-25 04:22] LABS: Alanine Aminotransferase 7 U/L (0-33); Albumin Level 2.8 g/dL (3.5-5.2); Alkaline Phosphatase 81 U/L (35-105); Anion Gap 24.8 (5-19); Aspartate Amino Transferase 14 U/L (0-32); Blood Urea Nitrogen 62 mg/dL (8-23); Calcium 8.4 mg/dL (8.5-10.5); Carbon Dioxide 19 mmol/L (22-29); Chloride 92 mmol/L (98-107); Creatinine Clr Calc Pharmacy 15.0166; Globulin 3.3 g/dL (1.3-4.6); Glucose 111 mg/dL (65-115); Osmolality Calculated 290 mOsm/kg (285-295); Potassium 4.8 mmol/L (3.5-5.1); Sodium 131 mmol/L (136-145); Total Bilirubin 0.4 mg/dL (0.15-1.2); Total Protein 6.1 g/dL (6.6-8.7)
[2023-03-25 06:36] LABS: Glucose Point of Care 125 mg/dL (70-110)
[2023-03-25] MEDS: HYDROmorphone 1 mg/mL INJ 1 mL IVP (08:37)
--- NOTE | 2023-03-25 10:24 | CTR_ITS ---
PROCEDURE INFORMATION: Exam: CT Chest Without Contrast; Diagnostic Exam date and time: 03/25/2023 10:47 AM Age: 77 years old Clinical indication: Abdominal pain; Other: Lower abdominal; Additional info: Increasuing leukocytosis, known peritoneal carcinamatosis, unknown primary, possibly TECHNIQUE: Imaging protocol: Diagnostic computed tomography of the chest without contrast. Radiation optimization: All CT scans at this facility use at least one of these dose optimization techniques: automated exposure control; mA and/or kV adjustment per patient size (includes targeted exams where dose is matched to clinical indication); or iterative reconstruction. COMPARISON: CT angio chest PE protcl [id number] 01/23/2020 11:20 AM RADIATION DOSE METRICS: Total DLP (mGy-cm): 1441.52 FINDINGS: Lungs: Stable bilateral pulmonary nodules including reference 9 mm left upper lobe nodule (series 4, image 15), and 6 mm right lower lobe nodule (image 33). Left basilar atelectasis. No focal consolidation. Pleural spaces: Small left and trace right pleural effusions. Heart: Unremarkable. No cardiomegaly. No pericardial effusion. Coronary arteries: Moderate coronary artery calcification with LAD stent. Mediastinal space: Patulous fluid-filled esophagus, placing patient at risk for aspiration. Lymph nodes: Unremarkable. No enlarged lymph nodes. Vasculature: Unremarkable. No aortic aneurysm. Diaphragm: Small hiatal hernia. Bones/joints: Unremarkable. No acute fracture. Soft tissues: Unremarkable. PROCEDURE INFORMATION: Exam: CT Abdomen And Pelvis Without Contrast Exam date and time: 03/25/2023 10:47 AM Age: 77 years old Clinical indication: Abdominal pain; Other: Lower abdominal; Additional info: Increasuing leukocytosis, known peritoneal carcinamatosis, unknown primary, possibly TECHNIQUE: Imaging protocol: Computed tomography of the abdomen and pelvis without contrast. Radiation optimization: All CT scans at this facility use at least one of these dose optimization techniques: automated exposure control; mA and/or kV adjustment per patient size (includes targeted exams where dose is matched to clinical indication); or iterative reconstruction. COMPARISON: CT abdomen pelvis w con* [id number] 03/17/2023 11:56 AM RADIATION DOSE METRICS: Total DLP (mGy-cm): 1441.52 FINDINGS: Liver: No mass. Gallbladder and bile ducts: Layering gallbladder sludge. Pancreas: No ductal dilation. Spleen: Multifocal splenic calcifications, likely sequela of prior granulomatous disease. Adrenal glands: Unremarkable. Kidneys and ureters: No hydronephrosis. Stomach and bowel: Gaseous distention of the colon. No evidence of obstruction. Appendix: Normal appendix. Intraperitoneal space: Peritoneal and omental carcinomatosis with moderate volume ascites, increased from prior. Vasculature: Unremarkable. No abdominal aortic aneurysm. Lymph nodes: Similar retroperitoneal adenopathy including reference 1.2 cm left para-aortic lymph node (series 6, image 43), and 1.2 cm right external iliac lymph node (image 70). Urinary bladder: The urinary bladder is decompressed with a Alejandre catheter. Reproductive: The uterus and endometrium are poorly evaluated without IV contrast. Bones/joints: Moderate degenerative changes of the spine. Soft tissues: Unremarkable. CT/[place] [id number] IMPRESSION: 1. Small left and trace right pleural effusions. 2. Patulous fluid-filled esophagus, placing patient at risk for aspiration. 3. Stable bilateral pulmonary nodules. Recommend continued attention on follow-up as per clinical protocol. IMPRESSION: 1. Peritoneal carcinomatosis with increased now moderate volume ascites. 2. Layering gallbladder sludge. 3. Retroperitoneal and pelvic lymphadenopathy.
[2023-03-25 11:20] LABS: Glucose Point of Care 127 mg/dL (70-110)
[2023-03-25] MEDS: heparin 5,000 unit/mL INJ 1 mL 5000 UNIT SUBCUT ×2 (11:37→21:58)
[2023-03-25] MEDS: oxyCODONE-APAP 5-325 mg Tablet 1 TAB PO ×2 (13:28→18:20)
--- NOTE | 2023-03-25 14:57 | P.PN_ITS ---
Subjective 2 Subjective: Continues to have abdominal pain. Passing flatus. Freely today. Abdominal x- ray yesterday without any signs of ileus. Leukocytosis increasing at 16,[address] abdomen and pelvis was ordered for this reason. Creatinine improving at 3.6. Urine output over 1 L. She was able to get the endometrial biopsy yesterday by Dr. Carrion. Medications: Reviewed: Yes Vitals/I&O/Wt Last Vital Signs Temp 97.9 F 03/25/23 12:00 Pulse 72 03/25/23 12:00 Resp 18 03/25/23 13:28 BP 133/74 03/25/23 12:00 Pulse Ox 92 03/25/23 12:00 O2 Del Method Room Air 03/25/23 12:00 03/24/23 03/25/23 03/25/23 22:59 06:59 14:59 Intake Total 1050 / 1050 1050 / 2100 1050 / 1050 Output Total 650 / 650 100 / 750 300 / 300 Balance 400 / 400 950 / 1350 750 / 750 Weight last 48 hrs Weight 99.79 kg Weight 97.522 kg Physical Exam 2 Narrative: General: No acute distress, AO x3 HEENT: PERRLA, pupils bilaterally equal and reactive, pallors not present Chest: Normal vesicular breath sounds, no added sounds, equal good air entry bilaterally CVS: S1-S2 regular, no murmurs, no tachycardia, no gallops, no rubs Abdomen: Soft, distended, bowel sounds present Neuro: No focal deficits, no facial deformity, AO x3, power 5/5 in all limbs Urinary Catheter Management: Alejandre: Cath Placed During This Visit: yes Reason for Continuing Indwelling Catheter: Other Urinary Catheter Date of Insertion: 03/23/23 Urinary Catheter Time of Insertion: 02:05 Data 03/25/23 03:00 03/25/23 03:00 Other data: 1. Small left and trace right pleural effusions. 2. Patulous fluid-filled esophagus, placing patient at risk for aspiration. 3. Stable bilateral pulmonary nodules. Recommend continued attention on follow-up as per clinical protocol. 1. Peritoneal carcinomatosis with increased now moderate volume ascites. 2. Layering gallbladder sludge. 3. Retroperitoneal and pelvic lymphadenopathy. A&P Assessment and plan (1) Acute renal failure: Qualifiers: Acute renal failure type: unspecified Qualified Code(s): N17.9 - Acute kidney failure, unspecified (2) Hyponatremia: (3) Metabolic acidosis: (4) Hyperkalemia: (5) Leukocytosis: (6) Uterine mass: (7) Abdominal ascites: (8) Retroperitoneal lymphadenopathy: Plan Acute renal failure -With hypochloremic metabolic acidosis with hyperkalemia and hyponatremia -Uremia -Creatinine 5.8 -Patient reports lack of urine output -Etiology likely multifactorial from dehydration, poor oral intake, nausea, vomiting, diarrhea, possible contrast-induced nephropathy Plan -Please Alejandre catheter -Monitor urine output -Consulted nephrology, started on bicarb drip -For hyperkalemia will give D50, insulin -Repeat BMP and 9 PM -Hyponatremia likely sec to dehydration, monitor serum sodium -CPK -Continue telemetry monitoring -Full code -Heparin for DVT prophylaxis CT show uterine mass, with retroperitoneal and bilateral iliac lymphadenopathy, with omental metastasis -CA125 ordered -Will consider consulting [facility] here in the hospital -Has had history of abnormal Pap smear Does complain of nausea, vomiting, abdominal pain -Patient has an abnormal gallbladder on CT -Order gallbladder ultrasound -Lipase, GGT -Intractable nausea vomiting, scopolamine patch, Zofran, Reglan, promethazine as needed Leukocytosis, etiology undetermined, Pro-Sergei, CRP Type 2 diabetes mellitus, low-dose sliding scale Plan for today March 23, 2023. Overnight labs and H&P reviewed. Patient with prerenal DEANDRE. Continue bicarbonate drip. No current indication for dialysis. Avoiding nephrotoxins. Reassess with a.m. labs. Will attempt to reach out to [facility] if endometrial biopsy can be completed on this current admission. Gallbladder ultrasound shows biliary sludge without sonographic evidence of acute cholecystitis.renal ultrasound without hydronephrosis of either kidney. Moderate free fluid was noted. Plan for today March 24, 2023: Creatinine improving today. Urine output at 500 cc. Improving metabolic acidosis on bicarb infusion.Continues to complain of abdominal pain. No vomiting but nausea persisting. Hypoactive bowel sounds on exam. Abdominal x-ray ordered. +/- CT depending on findings on abdominal plain film. Suspecting ileus. [facility] BM on 03/23 am. Discussed case with [facility] on- call. Patient has an outpatient appointment on Tuesday, however she is unlikely to be able to make it to this appointment given her current inpatient stay. Requested endometrial biopsy as inpatient to expedite diagnostics of likely malignancy. Plan for today March 25, 2023. Creatinine continues to improve. Urine output has picked up at 1000 cc. Improving metabolic acidosis, continues on bicarb infusion. Increasing leukocytosis for which CT chest abdomen and pelvis was performed today. No urinary tract obstruction. Dilated esophagus encountered which is fluid-filled. Make NPO. NG tube placement. Consult general surgery for possible EGD. May potentially have esophageal primary. Increased ascites over the last exam. Plan for paracentesis on Tuesday (not available on the weekend). Possibility of SBP not excluded at this time given abdominal tenderness and increasing leukocytosis. Add ceftriaxone 1 g IV every 24 hours presumptively. Attestations 2 Medical Necessity Statement*: continue iv fluids, NGT placement, surgery consult for EGD Coding Level of Care Code Acute Code for Chg Fwd Diagnoses Acute renal failure N17.9 Acute renal failure type: unspecified Hyponatremia E87.1 Metabolic acidosis E87.20 Hyperkalemia E87.5 Leukocytosis D72.829 Uterine mass N85.8 Abdominal ascites R18.8 Retroperitoneal lymphadenopathy R59.0
--- NOTE | 2023-03-25 15:37 | P.PN_ITS ---
Subjective 2 Subjective: feels better Medications: Reviewed: Yes Vitals/I&O/Wt Last Vital Signs Temp 97.9 F 03/25/23 12:00 Pulse 72 03/25/23 12:00 Resp 18 03/25/23 13:28 BP 133/74 03/25/23 12:00 Pulse Ox 92 03/25/23 12:00 O2 Del Method Room Air 03/25/23 12:00 03/25/23 03/25/23 03/25/23 06:59 14:59 22:59 Intake Total 1050 / 2100 1050 / 1050 Output Total 100 / 750 300 / 300 Balance 950 / 1350 750 / 750 Weight last 48 hrs Weight 99.79 kg Weight 97.522 kg Physical Exam 2 Narrative: Patient is awake alert no acute distress, Urinary Catheter Management: Alejandre: Cath Placed During This Visit: yes Reason for Continuing Indwelling Catheter: Other Urinary Catheter Date of Insertion: 03/23/23 Urinary Catheter Time of Insertion: 02:05 Data 03/25/23 03:00 03/25/23 03:00 A&P Assessment and plan (1) Acute renal failure: Qualifiers: Acute renal failure type: unspecified Qualified Code(s): N17.9 - Acute kidney failure, unspecified Plan 1. Acute kidney injury: Prerenal likely from poor p.o. intake associated with nausea and vomiting. Will continue with a bicarbonate drip till Am , then switch to NS . c/w IV albumin 25 g every 8 hours, avoid nephrotoxins and contrast studies if possible - renal fxn improving 2. Metabolic acidosis: Likely from DEANDRE and poor intake, on bicarbonate drip, improving 3. Hyponatremia, hypovolemic, monitor, improving 4. 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 Intractable nausea and vomiting,, plan for EGD and colonoscopy Patient evaluated using audiovisual cart. Time spent 20 minutes. Attestations 2 Medical Necessity Statement*: per randy Coding Level of Care Code Acute Code for Chg Fwd Diagnoses Acute renal failure N17.9 Acute renal failure type: unspecified
--- NOTE | 2023-03-25 15:41 | P.CONIM_ITS ---
Providers/Reason For Consult 2 Consulting Physician/Specialty*: Dr. Bassem Restrepo, DO/General surgery Reason for Consult*: Fluid-filled patulous esophagus and apparent intra-abdominal carcinomatosis Attending Physician: Chayo Moreno MD Primary Care Provider: Dayday Cerda MD History of Present Illness History of Present Illness Dia Cat is a 77 year old female who is scheduled for EGD and colonoscopy as part of investigation for a potential primary mass related to carcinomatosis of the abdomen seen on CT. She was unable to take her prep earlier in the week due to nausea and vomiting. She presented to the hospital and was found to be in acute renal failure. She recently underwent endometrial biopsy of a possible endometrial mass. Results are pending. She reports that she has diffuse abdominal pain that does not radiate. Palpation makes pain worse. Nothing makes pain better. She feels very bloated. She is passing minimal flatus and has not had a bowel movement in 3 days. She denies any hematemesis, hematochezia and/or melena Review of Systems 2 General: Reports: 10 or more systems reviewed and unremarkable except in HPI and below Medications/Allergies Home Medications Medication Instructions Recorded Confirmed Last Taken Type aspirin 81 mg tablet,delayed 81 mg PO BEDTIME 03/12/19 03/23/23 03/21/23 History release (Adult Low Dose Aspirin) cholecalciferol (vitamin D3) 125 125 mcg PO DAILY@12 02/10/20 03/23/23 03/16/23 History mcg (5,000 unit) tablet (Vitamin D3) diclofenac sodium 75 mg 75 mg PO BID PRN gout pain #60 tabs 04/07/22 03/23/23 1 Week Ago Rx tablet,delayed release ~02/27/23 coenzyme Q10 100 mg capsule (Co 100 mg PO QPM 08/10/22 03/23/23 03/16/23 History Q-10) zinc gluconate 50 mg tablet 50 mg PO DAILY@12 08/10/22 03/23/23 03/16/23 History amlodipine 2.5 mg tablet 2.5 mg PO DAILY #90 tabs 09/01/22 03/23/23 03/22/23 Rx carvedilol 12.5 mg tablet 12.5 mg PO BID #180 tabs 01/03/23 03/23/23 03/22/23 Rx Collagen Peptides Powder 2 sc PO DAILY 03/06/23 03/23/23 03/16/23 History allopurinol 100 mg tablet 100 mg PO BEDTIME 03/06/23 03/23/23 03/21/23 History atorvastatin 40 mg tablet 40 mg PO BEDTIME 03/06/23 03/23/23 03/21/23 History lisinopril 40 mg tablet 40 mg PO QAM 03/06/23 03/23/23 03/22/23 History metformin 500 mg tablet 500 mg PO BID 03/06/23 03/23/23 03/22/23 History ondansetron 4 mg disintegrating 4 mg PO Q8H PRN nausea and 03/11/23 03/23/23 03/21/23 Rx tablet vomiting #30 tabs oxycodone 5 mg tablet 5 mg PO TID PRN pain 30 days #90 03/21/23 03/23/23 Unknown Rx tabs omeprazole 40 mg capsule,delayed 40 mg PO DAILY 03/23/23 03/23/23 03/22/23 History release Allergies Allergy/AdvReac Type Severity Reaction Status Date / Time No Known Allergies Allergy Verified 03/11/23 08:41 Current Medications Generic Name Dose Route Start Last Admin Trade Name Freq PRN Reason Stop Dose Admin Aspirin 81 mg 03/22/23 22:50 03/24/23 21:54 Aspirin 81 Mg Ec Tablet PO 81 mg BEDTIME TED Administration Heparin Sodium (Porcine) 5,000 unit 03/22/23 22:50 03/25/23 11:37 Heparin 5,000 Unit/Ml Inj 1 Ml SUBCUT 5,000 unit Q12H TED Administration Hydromorphone HCl 1 mg 03/24/23 15:08 03/25/23 08:37 Hydromorphone 1 Mg/Ml Inj 1 Ml IVP 1 mg Q4H PRN Administration PAIN Sodium Bicarbonate 50 meq/ 1,050 mls @ 100 mls/hr 03/22/23 23:15 03/25/23 14:49 Sodium Chloride IV 100 mls/hr .[id number] TED Administration Insulin Human Lispro 0 unit 03/23/23 08:00 03/25/23 11:29 Insulin Lispro 100 Unit/1 Ml SUBCUT Not Given [facility]ID[facility] Protocol Oxycodone/Acetaminophen 1 tab 03/24/23 15:09 03/25/23 13:28 Oxycodone-Apap 5-325 Mg Tablet PO 1 tab Q6H PRN Administration MODERATE PAIN Pantoprazole Sodium 40 mg 03/22/23 22:50 03/24/23 21:55 Pantoprazole 40 Mg Sdv IVP 40 mg Q24H TED Administration Polyethylene Glycol 17 gm 03/25/23 09:00 03/25/23 08:39 Polyethylene Glycol 3350 Pkt 17 Gm PO Not Given DAILY TED PFSH Acute 2 PFSH: Medical History Back pain Hypertension Dyslipidemia Diabetes mellitus CAD (coronary artery disease) Surgical History S/P coronary artery stent placement Family History Other Cancer Diabetes Myocardial infarction Social History Smoking and tobacco/nicotine status: never used tobacco/nicotine Second hand smoke exposure: Yes Alcohol intake: never Substance/Drug Use: never Additional social history: 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 Ears : Pinnae and external canal are normal. Hearing is normal. Eyes : PERRLA, Sclera and injection are normal. No conjunctival discharge. Nose : Mucous membranes are without erythema. Throat : buccal mucosa is normal, gums are without significant recession or hypertrophy. Lungs : Equal chest rise bilaterally, no use of accessory muscles, trachea is midline. Cor : Rate and rhythm are normal. Abdomen : Soft, mild distention, mild diffuse tenderness no g/r/m Extremities : No edema, no cyanosis or clubbing, dorsalis pedis pulses are present bilaterally, non-tender to palpation of calves. Upper extremities are normal bilaterally. Back : non-tender to palpation, no CVA tenderness. Neuro : CN II - XII intact, Upper and lower extremities have equal and full strength Urinary Catheter Management: Alejandre: Cath Placed During This Visit: yes Reason for Continuing Indwelling Catheter: Other Urinary Catheter Date of Insertion: 03/23/23 Urinary Catheter Time of Insertion: 02:05 Data 03/26/23 03:56 03/26/23 03:56 A&P Assessment and plan (1) Abnormal CT of the abdomen: (2) Abdominal mass: (3) Esophagus disorder: Plan EGD and colonoscopy in the morning The risks and benefits of the procedure, including bleeding, infection, intestinal perforation requiring surgery, missed lesion were explained to the patient. The patient is understanding of the risks and wishes to proceed. Coding Level of Care Code [address] of the abdomen R93.5 Abdominal mass R19.00 Esophagus disorder K22.9
[2023-03-25] MEDS: cefTRIAXone 1,000 MG in sodium chloride 0.9% (plus) 50 ML 100 MG IV (16:40)
[2023-03-25] MEDS: metoclopramide 5 mg/mL SDV 2 mL IVP ×2 (16:41→22:09)
--- NOTE | 2023-03-25 17:03 | XRR_ITS ---
PROCEDURE INFORMATION: Exam: XR Chest Exam date and time: 03/25/2023 5:19 PM Age: 77 years old Clinical indication: Device placement; Ng tube; Additional info: Post ng tube placement TECHNIQUE: Imaging protocol: Radiologic exam of the chest. Views: 1 view. COMPARISON: CT chest abdpel [id number] 03/25/2023 10:47 AM FINDINGS: Tubes, catheters and devices: NG tube is seen in the left upper quadrant, with distal tip projected superiorly at the level of the proximal stomach. Side port of the distal catheter appears within the stomach, as well. Lungs: Mild basilar atelectasis, with some improvement with prior exam. No consolidation. Pleural spaces: Mild blunting left costophrenic angle suggesting small or trace effusion. No pneumothorax. Heart/Mediastinum: No cardiomegaly. Bones/joints: Visualized osseous structures show no acute abnormality. XR/XR chest 1V portable [id number] IMPRESSION: NG tube in the left upper quadrant at the expected level of the stomach with distal tip directed superiorly at the expected level of the proximal stomach.
--- NOTE | 2023-03-25 17:04 | PC.NURSE ---
ng tube placed in pts l nare, 1 attempt, pt tolerated well.
[2023-03-25 17:50] LABS: Glucose Point of Care 113 mg/dL (70-110)
[2023-03-25] MEDS: magnesium citrate Btl 296 mL PO ×2 (18:21→21:58)
[2023-03-25] MEDS: promethazine 25 mg/mL SDV 1 mL 12.5 MG IM (19:19)
--- NOTE | 2023-03-25 19:35 | P.PN_ITS ---
Subjective 2 Subjective: 77-year-old female with pelvic pain whic h is CT referring endometrial lining mass. An US reported Heterogeneous appearance to the endocervical component of the uterus. Suspicious for mass as seen on the recent CT Vitals/I&O/Wt Last Vital Signs Temp 97.7 F 03/29/23 11:29 Pulse 83 03/29/23 11:29 Resp 18 03/29/23 11:29 BP 128/74 03/29/23 11:29 Pulse Ox 94 03/29/23 11:29 O2 Del Method Room Air 03/29/23 11:29 O2 Flow Rate 2 03/27/23 20:00 03/28/23 03/29/23 03/29/23 22:59 06:59 14:59 Intake Total 440 / 1345 1000 / 2345 240 / 240 Output Total 900 / 900 Balance 440 / 1345 1000 / 2345 -660 / -660 Weight last 48 hrs Weight 94.801 kg Weight 85.094 kg Physical Exam 2 Const: COMMON NORMALS: no acute distress, average body habitus and patient oriented x3 GENERAL APPEARANCE: cooperative and well kempt HENMT: COMMON NORMALS: normocephalic and atraumatic HEAD & SCALP: n ormocephalic and atraumatic Neck/C-Spine: COMMON NORMALS: full ROM Chest: COMMONS NORMALS: normal inspection of the chest Resp: COMMON NORMALS: normal respiratory effort Cardio: COMMON NORMALS: regular rate and regular rhythm RATE: regular rate RHYTHM: regular rhythm GI: COMMON NORMALS: Soft to palpation INSPECTION: Yes normal to inspection PALPATION: Yes Soft to palpation, No Tenderness to palpation present (GI) and No Guarding due to palpation present (GI) : COMMON NORMALS: Yes normal bimanual exam EXTERNAL FEMALE EXAM: Yes normal appearance of the urethra and No lesion SPECULUM EXAM - VAGINA: Yes vagina atrophic and No lesion SPECULUM EXAM - CERVIX: Yes Cervical os closed, No Cervical bleeding, No Abnormal cervical discharge present and No Cervical mass present BIMANUAL EXAM - VAGINA & UTERUS: Yes normal bimanual exam B IMANUAL EXAM - ADNEXA, OTHER: Yes normal adnexae and No tender Neuro: COMMON NORMALS: patient oriented x3 Psych: APPEARANCE: Yes well kempt Urinary Catheter Management: Alejandre: Cath Placed During This Visit: yes, but has since been removed by the nurse Reason for Continuing Indwelling Catheter: Decision to DC Catheter Urinary Catheter Date of Insertion: 03/23/23 Urinary Catheter Time of Insertion: 02:05 Date Urinary Catheter Removed: 03/27/23 Time Urinary Catheter Discontinued: 14:00 Data 03/29/23 04:45 03/29/23 04:45 Micro: Microbiology 03/28/23 11:00 Gram Stain - Final Peritoneal Fluid Body Fluid Culture - Preliminary A&P Assessment and plan (1) Thickened endometrium: Patient 77-year-old female referred due to incidental finding of thickened endometrium. Patient was counseled regarding a symptomatic thickened endometrium. When asymptomatic thickened endometrium is found incidentally, a hysteroscopy and biopsy is not warranted if the thickness is between 4 mm and 10.5 mm. However ultrasound reports and endometrial thickening and a hysteroscopy and endometrial biopsy is recommended. In a recent article in the [employer] Journal from [employer]stetrics & Gynecology Science 2019 Thomas; 62(4): 273?279, showed that most frequently detected focal intrauterine lesions in asymptomatic women were endometrial polyps, which were diagnosed in 168 (63.1%) cases. Twenty-four (9%) patients were diagnosed as having simple hyperplasia, 4 (1%) atypical hyperplasia, and 8 (3%) endometrial adenocarcinoma. They suggest 10.5 mm as the cutoff value for endometrial thickness and recommend hysteroscopy with endometrial sampling. Plan Endometrial biopsy. Attestations 2 Medical Necessity Statement*: In my professional opinion per admitting diagnosis Coding Level of Care Code Acute Code for Chg Fwd Diagnoses Thickened endometrium R93.89
[2023-03-25] MEDS: aspirin 81 mg EC Tablet PO (21:58)
[2023-03-25] MEDS: pantoprazole 40 mg SDV IVP (22:10)
[2023-03-25] MEDS: ondansetron 2 mg/ML SDV 2 mL 4 MG IVP (22:22)
[2023-03-25 22:27] LABS: Glucose Point of Care 139 mg/dL (70-110)
[2023-03-25] MEDS: phenol oral Spray 177 mL 3 SPRAY MUCOUS MEM (23:07)
[2023-03-26] VITALS (12 sets, daily range): BP systolic 105–154; BP diastolic 55–79; PULSE 67–87; RESP 12–18; TEMP 36.3–36.8; O2SAT 90–97; BMI 38.9
[2023-03-26] MEDS: promethazine 25 mg/mL SDV 1 mL 12.5 MG IM (00:12)
[2023-03-26] MEDS: sodium bicarbonate 50 MEQ in sodium chloride 0.45% 1,000 ML 100 MEQ IV (01:48)
[2023-03-26 04:51] LABS: Basophils # 0.1 10^3/uL (0.0-0.1); Basophils % 0.4 %; Eosinophils % 0.2 %; Hematocrit 40.6 % (36-47); Lymphocytes % 5.9 %; Mean Corpuscular Hemoglobin 26.3 pg (27-33); Mean Corpuscular Volume 82.2 fl (85-98); Mean Platelet Volume 10.2 fL (7.4-10.4); Monocytes # 1.5 10^3/uL (0.2-0.9); Monocytes % 8.8 %; Neutrophils # 14.21 10^3/uL (1.8-7.7); Neutrophils % 84.1 %; Nucleated Red Blood Cells % 0 %; Platelet Count 470 10^3/cmm (157-399); Red Blood Count 4.94 10^6/uL (3.85-5.65); Red Cell Distribution Width 14.4 % (12.1-15.1); White Blood Count 16.88 10^3/uL (3.29-11.43)
[2023-03-26 05:06] LABS: Alanine Aminotransferase 7 U/L (0-33); Albumin Level 2.9 g/dL (3.5-5.2); Alkaline Phosphatase 83 U/L (35-105); Anion Gap 21.1 (5-19); Aspartate Amino Transferase 15 U/L (0-32); Blood Urea Nitrogen 58 mg/dL (8-23); Calcium 8.4 mg/dL (8.5-10.5); Carbon Dioxide 22 mmol/L (22-29); Chloride 92 mmol/L (98-107); Creatinine Clr Calc Pharmacy 21.0599; Globulin 3.4 g/dL (1.3-4.6); Glucose 136 mg/dL (65-115); Osmolality Calculated 288 mOsm/kg (285-295); Potassium 5.1 mmol/L (3.5-5.1); Sodium 130 mmol/L (136-145); Total Bilirubin 0.3 mg/dL (0.15-1.2); Total Protein 6.3 g/dL (6.6-8.7)
[2023-03-26] MEDS: metoclopramide 5 mg/mL SDV 2 mL IVP ×4 (06:10→23:39)
[2023-03-26 07:30] LABS: Glucose Point of Care 123 mg/dL (70-110)
--- NOTE | 2023-03-26 07:36 | P.ANESASSM_ITS ---
Pre-Anesthetic Assessment Height/Weight: Height 1.6 m Weight 99.79 kg Temp Pulse Resp BP Pulse Ox O2 Del Method 97.4 F L 78 17 128/76 93 Room Air 03/26/23 04:00 03/26/23 06:00 03/26/23 04:00 03/26/23 04:00 03/26/23 04:00 03/26/23 04:00 Preop Diagnosis: Abdominal pain/bloating Operation Date: 03/26/23 08:00 Proposed Procedures p EGD(Not Applicable) - Bassem Restrepo DO Familial anesthetic complications: none Was Beta Seema taken within 24 hours: N/A (Took carvedilol on Tuesday) Was Clonidine taken within 24 hours: N/A Last intake: Solid: 3-4 weeks Liquid: 03/25 Social No alcohol and No tobacco Exam alert, oriented x 3, clear to auscultation bilaterally and regular rate & rhythm Airway Submandibular: within normal limits Cervical ROM: within normal limits Mallampati: Class III Dentition: full History/ROS No significant history except as noted Pulmonary Exertional Dyspnea and Sleep Apnea CV/HEM Coronary Artery Disease, Hypertension (Stent placed 15 years ago) and Murmur DEANDRE Hepatic None reported GI Gastroesophageal Reflux Disease Abdominal pain, bloating, N/V Metabolic Diabetes Mellitus, Hyperlipidemia and Morbid Obesity Musc/skel Lower Back Pain and Osteoarthritis/DJD Neuropsych None reported Anesthetic Plan ASA status: 3 Anesthesia: Anesthesia Evaluation, General and MAC Risk of > 500 ml blood loss (7ml/kg in children): No Medications/Allergies Home Medications Medication Instructions Recorded Confirmed Last Taken Type aspirin 81 mg tablet,delayed 81 mg PO BEDTIME 03/12/19 03/23/23 03/21/23 History release (Adult Low Dose Aspirin) cholecalciferol (vitamin D3) 125 125 mcg PO DAILY@12 02/10/20 03/23/23 03/16/23 History mcg (5,000 unit) tablet (Vitamin D3) diclofenac sodium 75 mg 75 mg PO BID PRN gout pain #60 tabs 04/07/22 03/23/23 1 Week Ago Rx tablet,delayed release ~02/27/23 coenzyme Q10 100 mg capsule (Co 100 mg PO QPM 08/10/22 03/23/23 03/16/23 History Q-10) zinc gluconate 50 mg tablet 50 mg PO DAILY@12 08/10/22 03/23/23 03/16/23 History amlodipine 2.5 mg tablet 2.5 mg PO DAILY #90 tabs 09/01/22 03/23/23 03/22/23 Rx carvedilol 12.5 mg tablet 12.5 mg PO BID #180 tabs 01/03/23 03/23/23 03/22/23 Rx Collagen Peptides Powder 2 sc PO DAILY 03/06/23 03/23/23 03/16/23 History allopurinol 100 mg tablet 100 mg PO BEDTIME 03/06/23 03/23/23 03/21/23 History atorvastatin 40 mg tablet 40 mg PO BEDTIME 03/06/23 03/23/23 03/21/23 History lisinopril 40 mg tablet 40 mg PO QAM 03/06/23 03/23/23 03/22/23 History metformin 500 mg tablet 500 mg PO BID 03/06/23 03/23/23 03/22/23 History ondansetron 4 mg disintegrating 4 mg PO Q8H PRN nausea and 03/11/23 03/23/23 03/21/23 Rx tablet vomiting #30 tabs oxycodone 5 mg tablet 5 mg PO TID PRN pain 30 days #90 03/21/23 03/23/23 Unknown Rx tabs omeprazole 40 mg capsule,delayed 40 mg PO DAILY 03/23/23 03/23/23 03/22/23 History release Allergies Allergy/AdvReac Type Severity Reaction Status Date / Time No Known Allergies Allergy Verified 03/11/23 08:41 Current Medications Generic Name Dose Route Start Last Admin Trade Name Dionyq PRN Reason Stop Dose Admin Aspirin 81 mg 03/22/23 22:50 03/25/23 21:58 Aspirin 81 Mg Ec Tablet PO 81 mg BEDTIME TED Administration Heparin Sodium (Porcine) 5,000 unit 03/22/23 22:50 03/25/23 21:58 Heparin 5,000 Unit/Ml Inj 1 Ml SUBCUT 5,000 unit Q12H TED Administration Hydromorphone HCl 1 mg 03/24/23 15:08 03/25/23 08:37 Hydromorphone 1 Mg/Ml Inj 1 Ml IVP 1 mg Q4H PRN Administration PAIN Sodium Bicarbonate 50 meq/ 1,050 mls @ 100 mls/hr 03/22/23 23:15 03/26/23 01:48 Sodium Chloride IV 100 mls/hr .[id number] TED Administration Ceftriaxone Sodium 1,000 mg/ 50 mls @ 100 mls/hr 03/25/23 15:15 03/25/23 19:59 Sodium Chloride IV Infused Q24H TED Infusion Protocol Insulin Human Lispro 0 unit 03/23/23 08:00 03/25/23 18:12 Insulin Lispro 100 Unit/1 Ml SUBCUT Not Given TIDWM [facility] Protocol Metoclopramide HCl 5 mg 03/25/23 15:01 03/26/23 06:10 Metoclopramide 5 Mg/Ml Sdv 2 Ml IVP 5 mg Q8H TED Administration Ondansetron HCl 4 mg 03/22/23 22:50 03/25/23 22:22 Ondansetron 2 Mg/Ml Sdv 2 Ml IVP 4 mg Q8H PRN Administration vomiting, or N/V if npo Oxycodone/Acetaminophen 1 tab 03/24/23 15:09 03/25/23 18:20 Oxycodone-Apap 5-325 Mg Tablet PO 1 tab Q6H PRN Administration MODERATE PAIN Pantoprazole Sodium 40 mg 03/22/23 22:50 03/25/23 22:10 Pantoprazole 40 Mg Sdv IVP 40 mg Q24H TED Administration Phenol 3 spray 03/25/23 22:33 03/25/23 23:07 Phenol Oral [place] 177 Ml MUCOUS MEM 3 spray Q2H PRN Administration SORE THROAT Polyethylene Glycol 17 gm 03/25/23 09:00 03/25/23 08:39 Polyethylene Glycol 3350 Pkt 17 Gm PO Not Given DAILY TED Promethazine HCl 12.5 mg 03/22/23 22:50 03/26/23 00:12 Promethazine 25 Mg/Ml Sdv 1 Ml IM 12.5 mg Q6H PRN Administration NAUSEA PFSH Anesthesia Medical History Back pain Hypertension Dyslipidemia Diabetes mellitus CAD (coronary artery disease) Surgical History S/P coronary artery stent placement Family History Other Cancer Diabetes Myocardial infarction Social History Smoking and tobacco/nicotine status: never used tobacco/nicotine Second hand smoke exposure: Yes Alcohol intake: never Substance/Drug Use: never Additional social history: 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) Data Anesthesia 03/26/23 03:56 03/26/23 03:56 Short CBC 03/25/23 03/26/23 Range/Units 03:00 03:56 WBC 16.13 H 16.88 H (3.29-11.43) 10^3/uL Hgb 12.70 13.00 (11.27-16.99) g/dL Hct 38.1 40.6 (36-47) % MCV 81.9 L 82.2 L (85-98) fl Plt Count 401 H 470 H (157-399) 10^3/cmm Neut % (Auto) 77.6 84.1 % Neut # (Auto) 12.52 H 14.21 H (1.8-7.7) 10^3/uL BMP 03/25/23 03/26/23 03:00 03:56 Sodium 131 L 130 L Potassium 4.8 5.1 Chloride 92 L 92 L Carbon Dioxide 19 L 22 BUN 62 H 58 H Creatinine 3.6 H 2.6 H Glucose 111 136 H Calcium 8.4 L 8.4 L Liver Function 03/25/23 03/26/23 Range/Units 03:00 03:56 Total Bilirubin 0.4 0.3 (0.15-1.2) mg/dL AST 14 15 (0-32) U/L ALT 7 7 (0-33) U/L Alkaline Phosphatase 81 83 (35-105) U/L Albumin 2.8 L 2.9 L (3.5-5.2) g/dL Microbiology 03/26/23 05:30 Stool Lactoferrin - Final Stool Occult Blood (FIT) - Final Cardiac Studies: 2 Sestamibi Stress Test (Cardiology) 12/08
[2023-03-26] MEDS: sodium chloride 0.9% 1,000 ML 30 ML IV (07:48)
--- NOTE | 2023-03-26 08:01 | P.PN_ITS ---
Vitals/I&O/Wt Last Vital Signs Temp 97.8 F 03/26/23 07:46 Pulse 79 03/26/23 07:46 Resp 18 03/26/23 07:46 BP 154/77 03/26/23 07:46 Pulse Ox 97 03/26/23 07:46 O2 Del Method Room Air 03/26/23 07:46 03/25/23 03/26/23 03/26/23 22:59 06:59 14:59 Intake Total 50 / 1100 1050 / 2150 Output Total 250 / 550 400 / 950 Balance -200 / 550 650 / 1200 Weight last 48 hrs Weight 220 lb Weight 220 lb Physical Exam 2 Urinary Catheter Management: Alejandre: Cath Placed During This Visit: yes Reason for Continuing Indwelling Catheter: Required Immobilization for Trauma or Surgery or Anesthesia Urinary Catheter Date of Insertion: 03/23/23 Urinary Catheter Time of Insertion: 02:05 Data 03/26/23 03:56 03/26/23 03:56 Micro: Microbiology 03/26/23 05:30 Stool Lactoferrin - Final Stool Occult Blood (FIT) - Final A&P Assessment and plan (1) Abnormal CT of the abdomen: (2) Abdominal mass: (3) Esophagus disorder: Plan EGD and colonoscopy The risks and benefits of the procedure, including bleeding, infection, intestinal perforation requiring surgery, missed lesion were explained to the patient. The patient is understanding of the risks and wishes to proceed. Attestations 2 Medical Necessity Statement*: Per primary Coding Level of Care Code Acute Code for Chg Fwd Diagnoses Abnormal CT of the abdomen R93.5 Abdominal mass R19.00 Esophagus disorder K22.9
--- NOTE | 2023-03-26 08:47 | PM.PN ---
Subjective Subjective: s/p EGD and C scope Medications: Reviewed: Yes Vitals/I&O/Wt Last Vital Signs Temp 98.3 F 03/26/23 08:36 Pulse 67 03/26/23 08:36 Resp 12 03/26/23 08:36 BP 119/55 03/26/23 08:36 Pulse Ox 97 03/26/23 08:36 O2 Del Method Nasal Cannula 03/26/23 08:36 O2 Flow Rate 2 03/26/23 08:36 03/25/23 03/26/23 03/26/23 22:59 06:59 14:59 Intake Total 50 / 1100 1050 / 2150 Output Total 250 / 550 400 / 950 Balance -200 / 550 650 / 1200 Weight last 48 hrs Weight 99.79 kg Weight 99.79 kg Physical Exam Narrative: Patient is awake alert no acute distress, Urinary Catheter Management: Alejandre: Cath Placed During This Visit: yes Reason for Continuing Indwelling Catheter: Required Immobilization for Trauma or Surgery or Anesthesia Urinary Catheter Date of Insertion: 03/23/23 Urinary Catheter Time of Insertion: 02:05 Data 03/26/23 03:56 03/26/23 03:56 Micro: Microbiology 03/26/23 05:30 Stool Lactoferrin - Final Stool Occult Blood (FIT) - Final A&P Assessment and plan (1) Acute renal failure: Qualifiers: Acute renal failure type: unspecified Qualified Code(s): N17.9 - Acute kidney failure, unspecified Plan 1. Acute kidney injury: Prerenal likely from poor p.o. intake associated with nausea and vomiting.cr 5.8 on presentation . c/w IV albumin 25 g every 8 hours, avoid nephrotoxins and contrast studies if possible - renal fxn improving - Switched IVFs to NS 2. Metabolic acidosis: Likely from DEANDRE and poor intake, s/p bicarbonate drip, improved 3. Hyponatremia, hypovolemic, monitor, improving 4. Uterine enlargement with omental carcinomatosis, possibly endometrial malignancy, workup pending- s/p biopsy 5. 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 Time spent 20 minutes. Attestations Medical Necessity Statement*: per [facility] Coding Level of Care Code Acute Code for Chg Fwd Diagnoses Acute renal failure N17.9 Acute renal failure type: unspecified
--- NOTE | 2023-03-26 09:00 | ANE.PACU2 ---
Inpatient post-anesthesia follow up: Airway intact: Yes Vital signs: Temperature 97.8 F Pulse Rate 85 Respiratory Rate 14 Blood Pressure 137/79 Pulse Oximetry 92 Oxygen Delivery Me thod Room Air Oxygen Flow Rate 2 Fraction of Inspir ed Oxygen Hydration adequate: Yes Nausea and vomiting: No Pain level: 1 Mental status: Baseline
[2023-03-26] MEDS: oxyCODONE-APAP 5-325 mg Tablet 1 TAB PO ×3 (10:07→23:45)
[2023-03-26] MEDS: heparin 5,000 unit/mL INJ 1 mL 5000 UNIT SUBCUT ×2 (10:08→21:53)
[2023-03-26 11:24] LABS: Glucose Point of Care 140 mg/dL (70-110)
[2023-03-26] MEDS: sodium chloride 0.9% 1,000 ML 60 ML IV (14:45)
[2023-03-26] MEDS: cefTRIAXone 1,000 MG in sodium chloride 0.9% (plus) 50 ML 100 MG IV (14:47)
[2023-03-26 16:02] LABS: Glucose Point of Care 134 mg/dL (70-110)
--- NOTE | 2023-03-26 16:10 | P.PN_ITS ---
Subjective 2 Subjective: Creatinine improving to 2.6. underwent EGD and colonoscopy today. No malignancy encountered on scopes. Colonoscopy showed diverticulosis without perforation or abscess. Some internal hemorrhoids. EGD showed grade 3 varices in the middle third of the esophagus. The varices were not actively bleeding. In the gastric cardia small hiatal hernia without obstruction or gangrene. No abnormalities encountered in the duodenum. Bicarb drip discontinued today. Medications: Reviewed: Yes Vitals/I&O/Wt Last Vital Signs Temp 98.0 F 03/26/23 16:00 Pulse 87 03/26/23 16:00 Resp 16 03/26/23 16:00 BP 105/62 03/26/23 16:00 Pulse Ox 90 03/26/23 16:00 O2 Del Method Room Air 03/26/23 08:49 O2 Flow Rate 2 03/26/23 08:36 03/26/23 03/26/23 03/26/23 06:59 14:59 22:59 Intake Total 1050 / 2150 1050 / 1050 Output Total 400 / 950 Balance 650 / 1200 1050 / 1050 Weight last 48 hrs Weight 99.79 kg Weight 99.79 kg Physical Exam 2 Narrative: General: No acute distress, AO x3 HEENT: PERRLA, pupils bilaterally equal and reactive, pallors not present Chest: Normal vesicular breath sounds, no added sounds, equal good air entry bilaterally CVS: S1-S2 regular, no murmurs, no tachycardia, no gallops, no rubs Abdomen: Soft, distended, bowel sounds present Neuro: No focal deficits, no facial deformity, AO x3, power 5/5 in all limbs Urinary Catheter Management: Alejandre: Cath Placed During This Visit: yes Reason for Continuing Indwelling Catheter: Required Immobilization for Trauma or Surgery or Anesthesia Urinary Catheter Date of Insertion: 03/23/23 Urinary Catheter Time of Insertion: 02:05 Data 03/26/23 03:56 03/26/23 03:56 Micro: Microbiology 03/26/23 05:30 Stool Lactoferrin - Final Stool Occult Blood (FIT) - Final A&P Assessment and plan (1) Acute renal failure: Qualifiers: Acute renal failure type: unspecified Qualified Code(s): N17.9 - Acute kidney failure, unspecified (2) Hyponatremia: (3) Metabolic acidosis: (4) Hyperkalemia: (5) Leukocytosis: (6) Uterine mass: (7) Abdominal ascites: (8) Retroperitoneal lymphadenopathy: Plan Acute renal failure -With hypochloremic metabolic acidosis with hyperkalemia and hyponatremia -Uremia -Creatinine 5.8 -Patient reports lack of urine output -Etiology likely multifactorial from dehydration, poor oral intake, nausea, vomiting, diarrhea, possible contrast-induced nephropathy Plan -Please Alejandre catheter -Monitor urine output -Consulted nephrology, started on bicarb drip -For hyperkalemia will give D50, insulin -Repeat BMP and 9 PM -Hyponatremia likely sec to dehydration, monitor serum sodium -CPK -Continue telemetry monitoring -Full code -Heparin for DVT prophylaxis CT show uterine mass, with retroperitoneal and bilateral iliac lymphadenopathy, with omental metastasis -CA125 ordered -Will consider consulting SENIOR FINANCIAL ACCOUNTANT here in the hospital -Has had history of abnormal Pap smear Does complain of nausea, vomiting, abdominal pain -Patient has an abnormal gallbladder on CT -Order gallbladder ultrasound -Lipase, GGT -Intractable nausea vomiting, scopolamine patch, Zofran, Reglan, promethazine as needed Leukocytosis, etiology undetermined, Pro-Sergei, CRP Type 2 diabetes mellitus, low-dose sliding scale Plan for today March 23, 2023. Overnight labs and H&P reviewed. Patient with prerenal DEANDRE. Continue bicarbonate drip. No current indication for dialysis. Avoiding nephrotoxins. Reassess with a.m. labs. Will attempt to reach out to HARDWARE ENGINEER if endometrial biopsy can be completed on this current admission. Gallbladder ultrasound shows biliary sludge without sonographic evidence of acute cholecystitis.renal ultrasound without hydronephrosis of either kidney. Moderate free fluid was noted. Plan for today March 24, 2023: Creatinine improving today. Urine output at 500 cc. Improving metabolic acidosis on bicarb infusion.Continues to complain of abdominal pain. No vomiting but nausea persisting. Hypoactive bowel sounds on exam. Abdominal x-ray ordered. +/- CT depending on findings on abdominal plain film. Suspecting ileus. [facility] BM on 03/23 am. Discussed case with HARDWARE ENGINEER on- call. Patient has an outpatient appointment on Tuesday, however she is unlikely to be able to make it to this appointment given her current inpatient stay. Requested endometrial biopsy as inpatient to expedite diagnostics of likely malignancy. Plan for today March 25, 2023. Creatinine continues to improve. Urine output has picked up at 1000 cc. Improving metabolic acidosis, continues on bicarb infusion. Increasing leukocytosis for which CT chest abdomen and pelvis was performed today. No urinary tract obstruction. Dilated esophagus encountered which is fluid-filled. Make NPO. NG tube placement. Consult general surgery for possible EGD. May potentially have esophageal primary. Increased ascites over the last exam. Plan for paracentesis on Tuesday (not available on the weekend). Possibility of SBP not excluded at this time given abdominal tenderness and increasing leukocytosis. Add ceftriaxone 1 g IV every 24 hours presumptively. Plan for today March 26, 2023. Creatinine continues to improve to 2.6. Metabolic acidosis resolved. Discontinue bicarbonate infusion and change to normal saline. Urine output charted at 650 cc since return from EGD. Colonoscopy and endoscopy findings as above. No mass encountered. Grade 3 esophageal varices without any bleeding. Currently placed on Reglan for promotility effect. Full liquid diet for now. Awaiting endometrial biopsy results. Attestations 2 Medical Necessity Statement*: continued need for iv fluids for DEANDRE, monitor cr and urine output Coding Level of Care Code Acute Code for Chg Fwd Diagnoses Acute renal failure N17.9 Acute renal failure type: unspecified Hyponatremia E87.1 Metabolic acidosis E87.20 Hyperkalemia E87.5 Leukocytosis D72.829 Uterine mass N85.8 Abdominal ascites R18.8 Retroperitoneal lymphadenopathy R59.0
[2023-03-26 21:44] LABS: Glucose Point of Care 143 mg/dL (70-110)
[2023-03-26] MEDS: aspirin 81 mg EC Tablet PO (21:53)
[2023-03-26] MEDS: pantoprazole 40 mg SDV IVP (23:39)
[2023-03-27] VITALS (9 sets, daily range): BP systolic 118–136; BP diastolic 63–79; PULSE 78–88; RESP 16–18; TEMP 36.4–36.7; O2SAT 91–96; BMI 38.9
[2023-03-27] MEDS: metoclopramide 5 mg/mL SDV 2 mL IVP ×3 (05:22→20:32)
[2023-03-27 05:27] LABS: Basophils % 0.3 %; Eosinophils # 0.1 10^3/uL (0.0-0.8); Eosinophils % 1.1 %; Hematocrit 39.3 % (36-47); Lymphocytes # 1.2 10^3/uL (0.8-4.8); Lymphocytes % 9.5 %; Mean Corpuscular HGB Conc 32.3 g/dL (30-55); Mean Corpuscular Hemoglobin 26.7 pg (27-33); Mean Corpuscular Volume 82.6 fl (85-98); Mean Platelet Volume 10.3 fL (7.4-10.4); Monocytes # 1.8 10^3/uL (0.2-0.9); Monocytes % 13.9 %; Neutrophils # 9.57 10^3/uL (1.8-7.7); Neutrophils % 74.8 %; Nucleated Red Blood Cells % 0 %; Platelet Count 475 10^3/cmm (157-399); Red Blood Count 4.76 10^6/uL (3.85-5.65); Red Cell Distribution Width 14.6 % (12.1-15.1)
[2023-03-27 05:45] LABS: Alanine Aminotransferase 9 U/L (0-33); Albumin Level 2.8 g/dL (3.5-5.2); Alkaline Phosphatase 77 U/L (35-105); Anion Gap 18.1 (5-19); Aspartate Amino Transferase 14 U/L (0-32); Blood Urea Nitrogen 58 mg/dL (8-23); Calcium 8.4 mg/dL (8.5-10.5); Carbon Dioxide 24 mmol/L (22-29); Chloride 95 mmol/L (98-107); Creatinine Clr Calc Pharmacy 21.9023; Globulin 3.4 g/dL (1.3-4.6); Glucose 132 mg/dL (65-115); Osmolality Calculated 292 mOsm/kg (285-295); Potassium 5.1 mmol/L (3.5-5.1); Sodium 132 mmol/L (136-145); Total Bilirubin 0.3 mg/dL (0.15-1.2); Total Protein 6.2 g/dL (6.6-8.7)
[2023-03-27 07:44] LABS: Glucose Point of Care 123 mg/dL (70-110)
--- NOTE | 2023-03-27 07:50 | PM.PN ---
Subjective Subjective: still with poor appetite and decreased PO intake Medications: Reviewed: Yes Vitals/I&O/Wt Last Vital Signs Temp 97.9 F 03/27/23 07:44 Pulse 78 03/27/23 07:44 Resp 16 03/27/23 07:44 BP 136/78 03/27/23 07:44 Pulse Ox 95 03/27/23 07:44 O2 Del Method Room Air 03/27/23 04:00 O2 Flow Rate 2 03/26/23 08:36 03/26/23 03/27/23 03/27/23 22:59 06:59 14:59 Intake Total 1460 / 1460 Output Total 300 / 300 200 / 500 Balance 1160 / 1160 -200 / 960 Weight last 48 hrs Weight 99.79 kg Weight 99.79 kg Physical Exam Narrative: Patient is awake alert no acute distress, Urinary Catheter Management: Alejandre: Cath Placed During This Visit: yes Reason for Continuing Indwelling Catheter: Perioperative Use in Selected Surgeries Urinary Catheter Date of Insertion: 03/23/23 Urinary Catheter Time of Insertion: 02:05 Data 03/27/23 04:57 03/27/23 04:57 Micro: Microbiology 03/26/23 05:30 Stool Lactoferrin - Final Stool Occult Blood (FIT) - Final A&P Assessment and plan (1) Acute renal failure: Qualifiers: Acute renal failure type: unspecified Qualified Code(s): N17.9 - Acute kidney failure, unspecified Plan 1. Acute kidney injury: Prerenal likely from poor p.o. intake associated with nausea and vomiting.cr 5.8 on presentation . c/w IV albumin 25 g every 8 hours, avoid nephrotoxins and contrast studies if possible - renal fxn improving - Switched IVFs to NS 2. Metabolic acidosis: Likely from DEANDRE and poor intake, s/p bicarbonate drip, improved 3. Hyponatremia, hypovolemic, monitor, improving 4. 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 Time spent 20 minutes. Attestations Medical Necessity Statement*: per [facility] Coding Level of Care Code Acute Code for Chg Fwd Diagnoses Acute renal failure N17.9 Acute renal failure type: unspecified
--- NOTE | 2023-03-27 09:54 | P.PN_ITS ---
Subjective 2 Subjective: Patient seen and examined. Tolerating liquid diet. Passing flatus but no bowel movement yet Vitals/I&O/Wt Last Vital Signs Temp 97.9 F 03/27/23 07:44 Pulse 78 03/27/23 07:44 Resp 16 03/27/23 07:44 BP 136/78 03/27/23 07:44 Pulse Ox 95 03/27/23 07:44 O2 Del Method Room Air 03/27/23 04:00 O2 Flow Rate 2 03/26/23 08:36 03/26/23 03/27/23 03/27/23 22:59 06:59 14:59 Intake Total 1460 / 1460 930 / 930 Output Total 300 / 300 200 / 500 Balance 1160 / 1160 -200 / 960 930 / 930 Weight last 48 hrs Weight 220 lb Weight 220 lb Physical Exam 2 Narrative: General: No acute distress, awake alert and oriented x 3 Abdomen: Soft, distended, minimally tender to palpation diffusely, no guarding rebound or masses Urinary Catheter Management: Alejandre: Cath Placed During This Visit: yes Reason for Continuing Indwelling Catheter: Perioperative Use in Selected Surgeries Urinary Catheter Date of Insertion: 03/23/23 Urinary Catheter Time of Insertion: 02:05 Data 03/27/23 04:57 03/27/23 04:57 Micro: Microbiology 03/26/23 05:30 Stool Lactoferrin - Final Stool Occult Blood (FIT) - Final A&P Assessment and plan (1) Abnormal CT of the abdomen: (2) Abdominal mass: (3) Esophagus disorder: Plan Patient appears to have carcinomatosis, suspected from an endometrial mass which was biopsied recently by WATER VESSEL CAPTAIN No primary identified on EGD and colonoscopy yesterday No need for further colon cancer screenings due to patient's age over 70 Advance to diabetic diet Pathology results are pending. I am available for Mediport placement if requested. Medical management per hospitalist Attestations 2 Medical Necessity Statement*: Per primary Coding Level of Care Code Acute Code for Chg Fwd Diagnoses Abnormal CT of the abdomen R93.5 Abdominal mass R19.00 Esophagus disorder K22.9
[2023-03-27] MEDS: polyethylene glycol 3350 Pkt 17 gm PO (10:09)
[2023-03-27] MEDS: sodium chloride 0.9% 1,000 ML 60 ML IV (10:10)
[2023-03-27 11:12] LABS: Glucose Point of Care 132 mg/dL (70-110)
[2023-03-27] MEDS: heparin 5,000 unit/mL INJ 1 mL 5000 UNIT SUBCUT ×2 (12:02→22:54)
--- NOTE | 2023-03-27 14:38 | P.PN_ITS ---
Subjective 2 Subjective: Creatinine continues to improve down to 2.5 today. Urine output charted at 500 cc. Abdominal pain is slightly better today however still has no appetite. Only taking a few bites of pudding and modified diet. Medications: Reviewed: Yes Vitals/I&O/Wt Last Vital Signs Temp 97.6 F 03/27/23 12:00 Pulse 87 03/27/23 12:00 Resp 16 03/27/23 12:00 BP 119/63 03/27/23 12:00 Pulse Ox 91 03/27/23 12:00 O2 Del Method Room Air 03/27/23 04:00 O2 Flow Rate 2 03/26/23 08:36 03/26/23 03/27/23 03/27/23 22:59 06:59 14:59 Intake Total 1460 / 1460 1530 / 1530 Output Total 300 / 300 200 / 500 Balance 1160 / 1160 -200 / 960 1530 / 1530 Weight last 48 hrs Weight 99.79 kg Weight 99.79 kg Physical Exam 2 Narrative: General: No acute distress, AO x3 HEENT: PERRLA, pupils bilaterally equal and reactive, pallors not present Chest: Normal vesicular breath sounds, no added sounds, equal good air entry bilaterally CVS: S1-S2 regular, no murmurs, no tachycardia, no gallops, no rubs Abdomen: Soft, distended, bowel sounds present Neuro: No focal deficits, no facial deformity, AO x3, power 5/5 in all limbs Urinary Catheter Management: Alejandre: Cath Placed During This Visit: yes, but has since been removed by the nurse Reason for Continuing Indwelling Catheter: Decision to DC Catheter Urinary Catheter Date of Insertion: 03/23/23 Urinary Catheter Time of Insertion: 02:05 Date Urinary Catheter Removed: 03/27/23 Time Urinary Catheter Discontinued: 14:00 Data 03/27/23 04:57 03/27/23 04:57 A&P Assessment and plan (1) Acute renal failure: Qualifiers: Acute renal failure type: unspecified Qualified Code(s): N17.9 - Acute kidney failure, unspecified (2) Hyponatremia: (3) Metabolic acidosis: (4) Hyperkalemia: (5) Leukocytosis: (6) Uterine mass: (7) Abdominal ascites: (8) Retroperitoneal lymphadenopathy: Plan Acute renal failure -With hypochloremic metabolic acidosis with hyperkalemia and hyponatremia -Uremia -Creatinine 5.8 -Patient reports lack of urine output -Etiology likely multifactorial from dehydration, poor oral intake, nausea, vomiting, diarrhea, possible contrast-induced nephropathy Plan -Please Alejandre catheter -Monitor urine output -Consulted nephrology, started on bicarb drip -For hyperkalemia will give D50, insulin -Repeat BMP and 9 PM -Hyponatremia likely sec to dehydration, monitor serum sodium -CPK -Continue telemetry monitoring -Full code -Heparin for DVT prophylaxis CT show uterine mass, with retroperitoneal and bilateral iliac lymphadenopathy, with omental metastasis -CA125 ordered -Will consider consulting SENIOR J2EE DEVELOPER here in the hospital -Has had history of abnormal Pap smear Does complain of nausea, vomiting, abdominal pain -Patient has an abnormal gallbladder on CT -Order gallbladder ultrasound -Lipase, GGT -Intractable nausea vomiting, scopolamine patch, Zofran, Reglan, promethazine as needed Leukocytosis, etiology undetermined, Pro-Sergei, CRP Type 2 diabetes mellitus, low-dose sliding scale Plan for today March 23, 2023. Overnight labs and H&P reviewed. Patient with prerenal DEANDRE. Continue bicarbonate drip. No current indication for dialysis. Avoiding nephrotoxins. Reassess with a.m. labs. Will attempt to reach out to WELDING PANTOGRAPH MACHINE OPERATOR if endometrial biopsy can be completed on this current admission. Gallbladder ultrasound shows biliary sludge without sonographic evidence of acute cholecystitis.renal ultrasound without hydronephrosis of either kidney. Moderate free fluid was noted. Plan for today March 24, 2023: Creatinine improving today. Urine output at 500 cc. Improving metabolic acidosis on bicarb infusion.Continues to complain of abdominal pain. No vomiting but nausea persisting. Hypoactive bowel sounds on exam. Abdominal x-ray ordered. +/- CT depending on findings on abdominal plain film. Suspecting ileus. [facility] BM on 03/23 am. Discussed case with WELDING PANTOGRAPH MACHINE OPERATOR on- call. Patient has an outpatient appointment on Tuesday, however she is unlikely to be able to make it to this appointment given her current inpatient stay. Requested endometrial biopsy as inpatient to expedite diagnostics of likely malignancy. Plan for today March 25, 2023. Creatinine continues to improve. Urine output has picked up at 1000 cc. Improving metabolic acidosis, continues on bicarb infusion. Increasing leukocytosis for which CT chest abdomen and pelvis was performed today. No urinary tract obstruction. Dilated esophagus encountered which is fluid-filled. Make NPO. NG tube placement. Consult general surgery for possible EGD. May potentially have esophageal primary. Increased ascites over the last exam. Plan for paracentesis on Tuesday (not available on the weekend). Possibility of SBP not excluded at this time given abdominal tenderness and increasing leukocytosis. Add ceftriaxone 1 g IV every 24 hours presumptively. Plan for today March 26, 2023. Creatinine continues to improve to 2.6. Metabolic acidosis resolved. Discontinue bicarbonate infusion and change to normal saline. Urine output charted at 650 cc since return from EGD. Colonoscopy and endoscopy findings as above. No mass encountered. Grade 3 esophageal varices without any bleeding. Currently placed on Reglan for promotility effect. Full liquid diet for now. Awaiting endometrial biopsy results. Plan for today March 27, 2023. Creatinine better at 2.5. Metabolic acidosis remains resolved. Currently on normal saline infusion. Still has a poor p.o. intake. Plan for paracentesis tomorrow when radiology services are available. Continue ceftriaxone for presumptive SBP. Leukocytosis is improving today. DC Alejandre catheter. Continue scheduled metoclopramide for esophageal motility. Pending endometrial biopsy. Attestations 2 Medical Necessity Statement*: Planned paracentesis tomorrow. Creatinine continues to improve. If patient is able to tolerate a p.o. intake and creatinine continues to improve, may be able to discharge over the next 24 to 48 hours. Coding Level of Care Code Acute Code for Chg Fwd Moderate MDM includes number and complexity of problems actively addressed during encounter, amount and/or complexity of data reviewed/ordered and described risk of complication, morbidity or mortality of management as documented Diagnoses Acute renal failure N17.9 Acute renal failure type: unspecified Hyponatremia E87.1 Metabolic acidosis E87.20 Hyperkalemia E87.5 Leukocytosis D72.829 Uterine mass N85.8 Abdominal ascites R18.8 Retroperitoneal lymphadenopathy R59.0
[2023-03-27] MEDS: cefTRIAXone 1,000 MG in sodium chloride 0.9% (plus) 50 ML 100 MG IV (15:37)
[2023-03-27 16:36] LABS: Glucose Point of Care 131 mg/dL (70-110)
[2023-03-27] MEDS: oxyCODONE-APAP 5-325 mg Tablet 1 TAB PO (19:53)
[2023-03-27 22:04] LABS: Glucose Point of Care 125 mg/dL (70-110)
[2023-03-27] MEDS: pantoprazole 40 mg SDV IVP (22:54)
[2023-03-28] VITALS (11 sets, daily range): BP systolic 117–147; BP diastolic 63–78; PULSE 77–95; RESP 17–18; TEMP 36.3–37.2; O2SAT 92–97; BMI 33.2
[2023-03-28] MEDS: metoclopramide 5 mg/mL SDV 2 mL IVP ×4 (03:02→20:12)
[2023-03-28] MEDS: oxyCODONE-APAP 5-325 mg Tablet 1 TAB PO (04:12)
[2023-03-28 04:38] LABS: Basophils # 0.1 10^3/uL (0.0-0.1); Basophils % 0.5 %; Eosinophils # 0.2 10^3/uL (0.0-0.8); Eosinophils % 1.4 %; Lymphocytes % 7.6 %; Mean Corpuscular HGB Conc 31.8 g/dL (30-55); Mean Corpuscular Hemoglobin 26.6 pg (27-33); Mean Corpuscular Volume 83.5 fl (85-98); Mean Platelet Volume 9.9 fL (7.4-10.4); Monocytes # 1.6 10^3/uL (0.2-0.9); Monocytes % 12.4 %; Neutrophils # 10.29 10^3/uL (1.8-7.7); Neutrophils % 77.7 %; Nucleated Red Blood Cells % 0 %; Platelet Count 413 10^3/cmm (157-399); Red Blood Count 4.67 10^6/uL (3.85-5.65); Red Cell Distribution Width 14.9 % (12.1-15.1); White Blood Count 13.22 10^3/uL (3.29-11.43)
[2023-03-28 04:54] LABS: Alanine Aminotransferase 7 U/L (0-33); Albumin Level 2.6 g/dL (3.5-5.2); Alkaline Phosphatase 74 U/L (35-105); Anion Gap 17.8 (5-19); Aspartate Amino Transferase 13 U/L (0-32); Blood Urea Nitrogen 54 mg/dL (8-23); Calcium 8.3 mg/dL (8.5-10.5); Carbon Dioxide 23 mmol/L (22-29); Chloride 98 mmol/L (98-107); Creatinine Clr Calc Pharmacy 28.8189; Globulin 3.3 g/dL (1.3-4.6); Glucose 126 mg/dL (65-115); Osmolality Calculated 294 mOsm/kg (285-295); Potassium 4.8 mmol/L (3.5-5.1); Sodium 134 mmol/L (136-145); Total Bilirubin 0.2 mg/dL (0.15-1.2); Total Protein 5.9 g/dL (6.6-8.7)
[2023-03-28 07:42] LABS: Glucose Point of Care 124 mg/dL (70-110)
[2023-03-28] MEDS: sodium chloride 0.9% 1,000 ML 60 ML IV (09:46)
--- NOTE | 2023-03-28 10:46 | PC.SOCIAL ---
IMM Updated Updated pt on IMM. No questions voiced. Provided pt a copy. Initialed, dated, & timed copy in chart.
--- NOTE | 2023-03-28 11:02 | PC.NURSE ---
Time out performed at 11:01. Consent signed and in patient chart.
[2023-03-28 12:01] LABS: Glucose Point of Care 117 mg/dL (70-110)
--- NOTE | 2023-03-28 12:20 | P.PN_ITS ---
Subjective 2 Subjective: no new complaints Medications: Reviewed: Yes Vitals/I&O/Wt Last Vital Signs Temp 97.4 F L 03/28/23 08:26 Pulse 90 03/28/23 08:26 Resp 17 03/28/23 08:26 BP 147/72 03/28/23 08:26 Pulse Ox 95 03/28/23 08:26 O2 Del Method Room Air 03/28/23 08:26 O2 Flow Rate 2 03/27/23 20:00 03/27/23 03/28/23 03/28/23 22:59 06:59 14:59 Intake Total 1290 / 2820 775 / 3595 705 / 705 Output Total 200 / 200 Balance 1290 / 2820 575 / 3395 705 / 705 Weight last 48 hrs Weight 85.094 kg Weight 99.79 kg Physical Exam 2 Narrative: Patient is awake alert no acute distress, Urinary Catheter Management: Alejandre: Cath Placed During This Visit: yes, but has since been removed by the nurse Reason for Continuing Indwelling Catheter: Decision to DC Catheter Urinary Catheter Date of Insertion: 03/23/23 Urinary Catheter Time of Insertion: 02:05 Date Urinary Catheter Removed: 03/27/23 Time Urinary Catheter Discontinued: 14:00 Data 03/28/23 04:15 03/28/23 04:15 A&P Assessment and plan (1) Acute renal failure: Qualifiers: Acute renal failure type: unspecified Qualified Code(s): N17.9 - Acute kidney failure, unspecified Plan 1. Acute kidney injury: Prerenal likely from poor p.o. intake associated with nausea and vomiting.cr 5.8 on presentation . c/w IV albumin 25 g every 8 hours, avoid nephrotoxins and contrast studies if possible - renal fxn improving - Switched IVFs to NS 2. Metabolic acidosis: Likely from DEANDRE and poor intake, s/p bicarbonate drip, improved 3. Hyponatremia, hypovolemic, monitor, improving 4. 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 Time spent 20 minutes. Attestations 2 Medical Necessity Statement*: [facility] Coding Level of Care Code Acute Code for Chg Fwd Diagnoses Acute renal failure N17.9 Acute renal failure type: unspecified
[2023-03-28] MEDS: heparin 5,000 unit/mL INJ 1 mL 5000 UNIT SUBCUT ×2 (12:28→22:32)
--- NOTE | 2023-03-28 13:44 | P.PN_ITS ---
Subjective 2 Subjective: seen today awaiting paracentesis Vitals/I&O/Wt Last Vital Signs Temp 97.5 F L 03/28/23 12:36 Pulse 79 03/28/23 12:36 Resp 17 03/28/23 12:36 BP 117/68 03/28/23 12:36 Pulse Ox 94 03/28/23 12:36 O2 Del Method Room Air 03/28/23 12:36 O2 Flow Rate 2 03/27/23 20:00 03/27/23 03/28/23 03/28/23 22:59 06:59 14:59 Intake Total 1290 / 2820 775 / 3595 905 / 905 Output Total 200 / 200 Balance 1290 / 2820 575 / 3395 905 / 905 Weight last 48 hrs Weight 85.094 kg Weight 99.79 kg Physical Exam 2 Narrative: General: No acute distress, AO x3 HEENT: PERRLA, pupils bilaterally equal and reactive, pallors not present Chest: Normal vesicular breath sounds, no added sounds, equal good air entry bilaterally CVS: S1-S2 regular, no murmurs, no tachycardia, no gallops, no rubs Abdomen: Soft, distended, bowel sounds present Neuro: No focal deficits, no facial deformity, AO x3, power 5/5 in all limbs Urinary Catheter Management: Alejandre: Cath Placed During This Visit: yes, but has since been removed by the nurse Reason for Continuing Indwelling Catheter: Decision to DC Catheter Urinary Catheter Date of Insertion: 03/23/23 Urinary Catheter Time of Insertion: 02:05 Date Urinary Catheter Removed: 03/27/23 Time Urinary Catheter Discontinued: 14:00 Data 03/28/23 04:15 03/28/23 04:15 A&P Assessment and plan (1) Acute renal failure: Qualifiers: Acute renal failure type: unspecified Qualified Code(s): N17.9 - Acute kidney failure, unspecified (2) Hyponatremia: (3) Metabolic acidosis: (4) Hyperkalemia: (5) Leukocytosis: (6) Uterine mass: (7) Abdominal ascites: (8) Retroperitoneal lymphadenopathy: Plan Acute renal failure -With hypochloremic metabolic acidosis with hyperkalemia and hyponatremia -Uremia -Creatinine 5.8 -Patient reports lack of urine output -Etiology likely multifactorial from dehydration, poor oral intake, nausea, vomiting, diarrhea, possible contrast-induced nephropathy Plan -Please Alejandre catheter -Monitor urine output -Consulted nephrology, started on bicarb drip -For hyperkalemia will give D50, insulin -Repeat BMP and 9 PM -Hyponatremia likely sec to dehydration, monitor serum sodium -CPK -Continue telemetry monitoring -Full code -Heparin for DVT prophylaxis CT show uterine mass, with retroperitoneal and bilateral iliac lymphadenopathy, with omental metastasis -CA125 ordered -Will consider consulting SAMPLE CARD MAKER here in the hospital -Has had history of abnormal Pap smear Does complain of nausea, vomiting, abdominal pain -Patient has an abnormal gallbladder on CT -Order gallbladder ultrasound -Lipase, GGT -Intractable nausea vomiting, scopolamine patch, Zofran, Reglan, promethazine as needed Leukocytosis, etiology undetermined, Pro-Sergei, CRP Type 2 diabetes mellitus, low-dose sliding scale Plan for today March 23, 2023. Overnight labs and H&P reviewed. Patient with prerenal DEANDRE. Continue bicarbonate drip. No current indication for dialysis. Avoiding nephrotoxins. Reassess with a.m. labs. Will attempt to reach out to CRANE SERVICE TECHNICIAN if endometrial biopsy can be completed on this current admission. Gallbladder ultrasound shows biliary sludge without sonographic evidence of acute cholecystitis.renal ultrasound without hydronephrosis of either kidney. Moderate free fluid was noted. Plan for today March 24, 2023: Creatinine improving today. Urine output at 500 cc. Improving metabolic acidosis on bicarb infusion.Continues to complain of abdominal pain. No vomiting but nausea persisting. Hypoactive bowel sounds on exam. Abdominal x-ray ordered. +/- CT depending on findings on abdominal plain film. Suspecting ileus. [facility] BM on 03/23 am. Discussed case with CRANE SERVICE TECHNICIAN on- call. Patient has an outpatient appointment on Tuesday, however she is unlikely to be able to make it to this appointment given her current inpatient stay. Requested endometrial biopsy as inpatient to expedite diagnostics of likely malignancy. Plan for today March 25, 2023. Creatinine continues to improve. Urine output has picked up at 1000 cc. Improving metabolic acidosis, continues on bicarb infusion. Increasing leukocytosis for which CT chest abdomen and pelvis was performed today. No urinary tract obstruction. Dilated esophagus encountered which is fluid-filled. Make NPO. NG tube placement. Consult general surgery for possible EGD. May potentially have esophageal primary. Increased ascites over the last exam. Plan for paracentesis on Tuesday (not available on the weekend). Possibility of SBP not excluded at this time given abdominal tenderness and increasing leukocytosis. Add ceftriaxone 1 g IV every 24 hours presumptively. Plan for today March 26, 2023. Creatinine continues to improve to 2.6. Metabolic acidosis resolved. Discontinue bicarbonate infusion and change to normal saline. Urine output charted at 650 cc since return from EGD. Colonoscopy and endoscopy findings as above. No mass encountered. Grade 3 esophageal varices without any bleeding. Currently placed on Reglan for promotility effect. Full liquid diet for now. Awaiting endometrial biopsy results. Plan for today March 27, 2023. Creatinine better at 2.5. Metabolic acidosis remains resolved. Currently on normal saline infusion. Still has a poor p.o. intake. Plan for paracentesis tomorrow when radiology services are available. Continue ceftriaxone for presumptive SBP. Leukocytosis is improving today. DC Alejandre catheter. Continue scheduled metoclopramide for esophageal motility. Pending endometrial biopsy. Mar 28 - awaiting paracentesis - continue reglan - endometrial biopsy results pending - continue plan as above cr. improving await fluid cytology check labs cbc, cmp Attestations 2 Medical Necessity Statement*: Planned paracentesis tomorrow. Creatinine continues to improve. If patient is able to tolerate a p.o. intake and creatinine continues to improve, may be able to discharge over the next 24 to 48 hours. Diagnoses Acute renal failure N17.9 Acute renal failure type: unspecified Hyponatremia E87.1 Metabolic acidosis E87.20 Hyperkalemia E87.5 Leukocytosis D72.829 Uterine mass N85.8 Abdominal ascites R18.8 Retroperitoneal lymphadenopathy R59.0
[2023-03-28 14:14] LABS: Cyto Order Verification No Order
[2023-03-28 14:23] LABS: Body Fluid Polynuclear #Cells 0.192; Body Fluid WBC 1470 /uL; Monocytes # Body Fluid 1.278
[2023-03-28 14:31] LABS: Apprearance, Body Fluid CLOUDY; Color, Body Fluid PALE YELLOW
[2023-03-28 14:48] LABS: Albumin Body Fluid 2.4 g/dL; Amylase Body Fluid 28 U/L; Total Protein Body Fluid 4.4 g/dL
[2023-03-28] MEDS: cefTRIAXone 1,000 MG in sodium chloride 0.9% (plus) 50 ML 100 MG IV (14:51)
[2023-03-28 14:58] LABS: Cyto Order Verification Order Verified
[2023-03-28 14:59] LABS: Fluid Laterality ASCITES
--- NOTE | 2023-03-28 15:02 | US_ITS ---
WS: [id number] ULTRASOUND-GUIDED PARACENTESIS CLINICAL INFORMATION: ascites COMPARISON: None. Procedure Informed consent: The risks, benefits, and alternatives of the procedure were discussed with the florinda ent. Verbal and written consent was obtained. Timeout: A timeout was performed to confirm the correct patient, procedure, and site. Preparation: A suitable skin site was identified. The patient was prepped and draped in usual sterile fashion. Lidocaine 1% was used for local anesthesia. Catheter: 4 [place] One-step Yueh catheter. Side: LEFT lower quadrant. Fluid Volume: 4300 ml Color: Clear yellow DISPOSITION: Discarded safely. Complications: None. IMPRESSION: 1. Uncomplicated ultrasound-guided paracentesis. 2. Removal of 4300 cc 3. Fluid sent for requested diagnostic studies.
[2023-03-28 15:46] LABS: PATH Referral YES
[2023-03-28 16:41] LABS: Glucose Point of Care 130 mg/dL (70-110)
[2023-03-28] MEDS: aspirin 81 mg EC Tablet PO (20:12)
[2023-03-28 20:42] LABS: Glucose Point of Care 111 mg/dL (70-110)
[2023-03-28] MEDS: pantoprazole 40 mg SDV IVP (22:32)
[2023-03-29] MEDS: sodium chloride 0.9% 1,000 ML 60 ML IV (02:42)
[2023-03-29] MEDS: metoclopramide 5 mg/mL SDV 2 mL IVP ×2 (02:42→09:54)
[2023-03-29 04:00] VITALS: BP 142/83; PULSE 90; RESP 17; TEMP 36.8; O2SAT 94
[2023-03-29 04:56] LABS: Basophils % 0.3 %; Eosinophils # 0.2 10^3/uL (0.0-0.8); Eosinophils % 1.5 %; Hematocrit 35.7 % (36-47); Lymphocytes % 8.4 %; Mean Corpuscular HGB Conc 32.2 g/dL (30-55); Mean Corpuscular Hemoglobin 26.6 pg (27-33); Mean Corpuscular Volume 82.6 fl (85-98); Mean Platelet Volume 9.4 fL (7.4-10.4); Monocytes # 1.4 10^3/uL (0.2-0.9); Monocytes % 12.4 %; Neutrophils # 8.78 10^3/uL (1.8-7.7); Nucleated Red Blood Cells % 0 %; Platelet Count 350 10^3/cmm (157-399); Red Blood Count 4.32 10^6/uL (3.85-5.65); Red Cell Distribution Width 14.7 % (12.1-15.1); White Blood Count 11.41 10^3/uL (3.29-11.43)
[2023-03-29 05:15] LABS: Alanine Aminotransferase 6 U/L (0-33); Albumin Level 2.2 g/dL (3.5-5.2); Alkaline Phosphatase 66 U/L (35-105); Anion Gap 15.6 (5-19); Aspartate Amino Transferase 17 U/L (0-32); Blood Urea Nitrogen 36 mg/dL (8-23); Carbon Dioxide 23 mmol/L (22-29); Chloride 102 mmol/L (98-107); Creatinine Clr Calc Pharmacy 44.3537; Globulin 2.8 g/dL (1.3-4.6); Glucose 121 mg/dL (65-115); Osmolality Calculated 292 mOsm/kg (285-295); Potassium 4.6 mmol/L (3.5-5.1); Sodium 136 mmol/L (136-145); Total Bilirubin 0.2 mg/dL (0.15-1.2)
[2023-03-29 05:59] VITALS: PULSE 84
[2023-03-29 06:28] LABS: Glucose Point of Care 110 mg/dL (70-110)
--- NOTE | 2023-03-29 06:43 | P.PN_ITS ---
Subjective 2 Subjective: no new c/o Medications: Reviewed: Yes Vitals/I&O/Wt Last Vital Signs Temp 98.2 F 03/29/23 04:00 Pulse 84 03/29/23 05:59 Resp 17 03/29/23 04:00 BP 142/83 03/29/23 04:00 Pulse Ox 94 03/29/23 04:00 O2 Del Method Room Air 03/28/23 15:59 O2 Flow Rate 2 03/27/23 20:00 03/28/23 03/28/23 03/29/23 14:59 22:59 06:59 Intake Total 905 / 905 440 / 1345 1000 / 2345 Balance 905 / 905 440 / 1345 1000 / 2345 Weight last 48 hrs Weight 94.801 kg Weight 85.094 kg Physical Exam 2 Narrative: Patient is awake alert no acute distress, Urinary Catheter Management: Alejandre: Cath Placed During This Visit: yes, but has since been removed by the nurse Reason for Continuing Indwelling Catheter: Decision to DC Catheter Urinary Catheter Date of Insertion: 03/23/23 Urinary Catheter Time of Insertion: 02:05 Date Urinary Catheter Removed: 03/27/23 Time Urinary Catheter Discontinued: 14:00 Data 03/29/23 04:45 03/29/23 04:45 Micro: Microbiology 03/28/23 11:00 Gram Stain - Final Peritoneal Fluid A&P Assessment and plan (1) Acute renal failure: Qualifiers: Acute renal failure type: unspecified Qualified Code(s): N17.9 - Acute kidney failure, unspecified Plan 1. Acute kidney injury: Prerenal likely from poor p.o. intake associated with nausea and vomiting.cr 5.8 on presentation . c/w IV albumin 25 g every 8 hours, avoid nephrotoxins and contrast studies if possible - renal fxn improving - 2. Metabolic acidosis: Likely from DEANDRE and poor intake, s/p bicarbonate drip, improved 3. Hyponatremia, hypovolemic, monitor, improving 4. 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 Time spent 20 minutes. Attestations 2 Medical Necessity Statement*: per [facility] Coding Level of Care Code Acute Code for Chg Fwd Diagnoses Acute renal failure N17.9 Acute renal failure type: unspecified
[2023-03-29 07:58] VITALS: BP 143/75; PULSE 86; RESP 18; TEMP 36.4; O2SAT 93
[2023-03-29 08:01] VITALS: BP 143/75; PULSE 86; RESP 18; TEMP 36.4; O2SAT 93
[2023-03-29 11:07] LABS: Glucose Point of Care 107 mg/dL (70-110)
[2023-03-29 11:29] VITALS: BP 128/74; PULSE 83; RESP 18; TEMP 36.5; O2SAT 94
--- NOTE | 2023-03-29 11:45 | P.DS_ITS ---
Discharge Providers Date of Admission: 03/22/23 20:15 Date of Discharge: March 29, 2023 Attending Provider at Admission: Josh Lai MD Attending Provider at Discharge: Yareli Gray MD Primary Care Provider: Dayday Cerda MD Diagnoses at Discharge Discharge Diagnosis (1) Thickened endometrium: Status: Acute Reason for Visit Reason for Visit: ABD PAIN Brief History: Dia Cat is a 77 year old female with a past medical history of CAD, status post stenting to LAD, hypertension, hyperlipidemia, [id number] type 2 diabetes mellitus, who presents to [facility] for 2 to 3-week history of nausea, vomiting, abdominal pain, poor appetite, decreased oral intake. Patient tells me that for the last 2 to 3 weeks she has had nausea vomiting abdominal pain abdominal bloating, with decreased oral intake she tells me that whenever she eats her abdomen becomes bloated she feels nauseous that she vomits she came to the emergency room around 17 March, she was diagnosed with an abdominal mass she is tells me she was supposed to follow-up with gynecology next week, she saw Dr. Restrepo due to nausea vomiting abdominal fullness, he had ordered an EGD and colonoscopy and she was actually taking a bowel prep today but was not able to keep it in the bowel prep down had severe diarrhea so she came to the emergency room for evaluation. Denies any lightheadedness, dizziness, denies any alcohol use, no smoking, no history of NSAID use, no history of kidney failure, no flank pain, she does report that she has vaginal bleeding, this has been going on for the last 2 to 3 weeks, she is , has had bilateral tubal ligation, she did have an abnormal Pap smear 1 time, and she had an ablation, since then her Pap smears were normal, she stopped and Pap smears a 65, she has never had a Pap smear showing any form of cancer, no family history of uterine/ovarian cancers. She does report she for the last 24 hours has not been urinating much Hospital Course Hospital Course 77-year-old female with recent diagnosis of abdominal carcinomatosis without a clear primary suspected to be uterine etiology at this time. She was awaiting to undergo colonoscopy as outpatient and was taking prep however then developed diarrhea. She has had abdominal pain and poor oral intake as part of her carcinomatosis and essentially came in with acute kidney injury with creatinine of 5 which was previously normal. She had metabolic acidosis on admission. She remained on bicarb infusion. With fluids and stopping her NSAIDs her creatinine improved and is now normal. She is making good urine. Urine biopsy was done by Dr. Carrion. Pathology report is currently pending. Colonoscopy endoscopy was also done in the hospital during the weekend but no masses were identified. She was found to have a dilated esophagus noted on CT. She also has grade 2 esophageal varices which were noted to be blocking the lumen and was likely the cause of her dilated esophagus. Currently patient on a full liquid diet and will be discharged on a full liquid diet at this time as well. She did have a paracentesis done during hospital stay. 4.3 L was removed. SAG ratio is less t gamez 1.1. Etiology most likely secondary to carcinomatosis at this point. Ruled out for portal hypertension. She did have leukocytosis during course of admission which was unexplainable. There was suspicion of SBP therefore she was started on antibiotics. Cytology has been reviewed. We will treat her for presumed SBP for total of 7 days with ciprofloxacin as an outpatient. At discharge we will hold her carvedilol, lisinopril, diclofenac sodium as nephrotoxic meds. Blood pressure has remained stable during hospital stay. She will be discharged at this time to follow-up with her primary care doctor and will be referred to Dr. Velazquez in [place] for further workup and management. Physical Exam Narrative: General: No acute distress, AO x3 HEENT: PERRLA, pupils bilaterally equal and reactive, pallors not present Chest: Normal vesicular breath sounds, no added sounds, equal good air entry bilaterally CVS: S1-S2 regular, no murmurs, no tachycardia, no gallops, no rubs Abdomen: Soft, distended, bowel sounds present Neuro: No focal deficits, no facial deformity, AO x3, power 5/5 in all limbs Urinary Catheter Management: Alejandre: Cath Placed During This Visit: yes, but has since been removed by the nurse Reason for Continuing Indwelling Catheter: Decision to DC Catheter Urinary Catheter Date of Insertion: 03/23/23 Urinary Catheter Time of Insertion: 02:05 Date Urinary Catheter Removed: 03/27/23 Time Urinary Catheter Discontinued: 14:00 Discharge Data Studies Completed and Pending Completed Studies During Hospitalization Category Date Time Status CT chest abdomen pelvis [[place] [id number] Cat Scan 03/25/23 10:24 Completed ] Routine XR abdomen 1V* [id number] Routine Exams 03/24/23 12:21 Completed XR chest 1V portable [id number] Stat Exams 03/25/23 17:03 Completed XR chest 1V portable [id number] Urgent Exams 03/22/23 17:35 Completed US gall bladder [id number] Stat Ultrasound 03/22/23 20:11 [place] [id number] Routine Ultrasound 03/28/23 15:02 Completed US renal BI* [id number] Stat Ultrasound 03/22/23 20:11 Completed Pending at discharge Category Date Time Status Anaerobic Culture Routine Lab 03/27/23 08:40 Results Body Fluid Culture & GS Routine Lab 03/27/23 08:40 Results Clostridium Difficile PCR Routine Lab 03/26/23 05:30 Received Mycobacteria, Culture w/Fluor Routine Lab 03/27/23 08:40 Ordered OVA and Parasites, Conc and PE Routine Lab 03/22/23 22:50 Received Salmonella / Shigella / Campy Routine Lab 03/22/23 22:50 Received Cytology [PTH] Routine Pth 03/27/23 08:40 Received Pathology: Surgical [PTH] Routine Pth 03/24/23 17:54 Received Pathology: Surgical [PTH] Routine Pth 03/26/23 08:37 Received Radiology Impressions Gallbladder Ultrasound 03/22/23 20:11 IMPRESSION: 1. Biliary sludge without sonographic evidence of acute cholecystitis. 2. Moderate free fluid. Renal Ultrasound 03/22/23 20:11 IMPRESSION: 1. No hydronephrosis of either kidney. 2. Moderate free fluid. Chest/Abdomen/Pelvis CT 03/25/23 10:24 IMPRESSION: 1. Small left and trace right pleural effusions. 2. Patulous fluid-filled esophagus, placing patient at risk for aspiration. 3. Stable bilateral pulmonary nodules. Recommend continued attention on follow-up as per clinical protocol. IMPRESSION: 1. Peritoneal carcinomatosis with increased now moderate volume ascites. 2. Layering gallbladder sludge. 3. Retroperitoneal and pelvic lymphadenopathy. Chest X-Ray 03/25/23 17:03 IMPRESSION: NG tube in the left upper quadrant at the expected level of the stomach with distal tip directed superiorly at the expected level of the proximal stomach. Laboratory Results WBC 11.41 10^3/uL (3.29-11.43) 03/29/23 04:45 RBC 4.32 10^6/uL (3.85-5.65) 03/29/23 04:45 Hgb 11.50 g/dL (11.27-16.99) 03/29/23 04:45 Hct 35.7 % (36-47) L 03/29/23 04:45 MCV 82.6 fl (85-98) L 03/29/23 04:45 MCH 26.6 pg (27-33) L 03/29/23 04:45 MCHC 32.2 g/dL (30-55) 03/29/23 04:45 RDW 14.7 % (12.1-15.1) 03/29/23 04:45 Plt Count 350 10^3/cmm (157-399) 03/29/23 04:45 MPV 9.4 fL (7.4-10.4) 03/29/23 04:45 Neut % (Auto) 77.0 % 03/29/23 04:45 Lymph % (Auto) 8.4 % 03/29/23 04:45 Schleicher % (Auto) 12.4 % 03/29/23 04:45 Eos % (Auto) 1.5 % 03/29/23 04:45 Baso % (Auto) 0.3 % 03/29/23 04:45 Neut # (Auto) 8.78 10^3/uL (1.8-7.7) H 03/29/23 04:45 Lymph # (Auto) 1.0 10^3/uL (0.8-4.8) 03/29/23 04:45 [place]leicher # (Auto) 1.4 10^3/uL (0.2-0.9) H 03/29/23 04:45 Eos # (Auto) 0.2 10^3/uL (0.0-0.8) 03/29/23 04:45 Baso # (Auto) 0.0 10^3/uL (0.0-0.1) 03/29/23 04:45 Nucleated RBC % (auto) 0 % 03/29/23 04:45 Nucleated RBCs # 0.0 /100WBC 03/29/23 04:45 Differential Comment Yes 03/28/23 11:00 Sodium 136 mmol/L (136-145) 03/29/23 04:45 Potassium 4.6 mmol/L (3.5-5.1) 03/29/23 04:45 Chloride 102 mmol/L (98-107) 03/29/23 04:45 Carbon Dioxide 23 mmol/L (22-29) 03/29/23 04:45 Anion Gap 15.6 (5-19) 03/29/23 04:45 BUN 36 mg/dL (8-23) H 03/29/23 04:45 Creatinine 1.2 mg/dL (0.5-0.9) H 03/29/23 04:45 GFR Calculation Not Reportable 03/29/23 04:45 Glucose 121 mg/dL (65-115) H 03/29/23 04:45 POC Glucose 107 mg/dL (70-110) 03/29/23 11:02 Estimat Average Glucose 146 03/22/23 17:28 Hemoglobin A1c 6.7 % (4.0-6.0) H 03/22/23 17:28 Calculated Osmolality 292 mOsm/kg (285-295) 03/29/23 04:45 Lactic Acid 1.0 mmol/L (0.5-2.2) 03/22/23 17:28 Calcium 8.0 mg/dL (8.5-10.5) L 03/29/23 04:45 Phosphorus 6.5 mg/dL (2.5-4.5) H 03/23/23 03:58 Magnesium 2.5 mg/dL (1.7-2.3) H 03/23/23 03:58 Total Bilirubin 0.2 mg/dL (0.15-1.2) 03/29/23 04:45 GGT 9 U/L (5-36) 03/22/23 17:28 AST 17 U/L (0-32) 03/29/23 04:45 ALT 6 U/L (0-33) 03/29/23 04:45 Alkaline Phosphatase 66 U/L (35-105) 03/29/23 04:45 Creatine Kinase 98 U/L (26-192) 03/22/23 17:28 Troponin T Baseline 26 ng/L (0-10) H 03/22/23 17:28 Troponin T 120 Minute 24.33 ng/L (0-10) H 03/22/23 19:42 Delta Troponin T -1.67 ABS# (0-10) L 03/22/23 19:42 Troponin T Hi Sens 6Hr 22.80 ng/L (0-10) H 03/22/23 22:31 Troponin T Hi Sens 6Hr Delta -3.20 ng/L (0-12) L 03/22/23 22:31 C-Reactive Protein 84.1 mg/L (0.0-4.9) H 03/22/23 17:28 Total Protein 5.0 g/dL (6.6-8.7) L 03/29/23 04:45 Albumin 2.2 g/dL (3.5-5.2) L 03/29/23 04:45 Globulin 2.8 g/dL (1.3-4.6) 03/29/23 04:45 Triglycerides 91 mg/dL (0-150) 03/22/23 22:31 Cholesterol 91 mg/dL (0-200) 03/22/23 22:31 LDL Cholesterol, Calc 39 mg/dL (50-129) L 03/22/23 22:31 HDL Cholesterol 34 mg/dL (60-100) L 03/22/23 22:31 LDL/HDL Ratio 1.15 RATIO (0.00-3.22) 03/22/23 22: Cholesterol/HDL Ratio 2.68 mg/dL (0.0-4.40) 03/22/23 22:31 Lipase 49 U/L (13-60) 03/22/23 17:28 Lipase 51 U/L (13-60) 03/22/23 17:28 CA 125 Antigen 490.2 U/mL (0-35) H 03/22/23 17:28 Procalcitonin 0.24 ng/mL (0-0.5) 03/22/23 17:28 TSH 2.00 uIU/mL (0.27-4.20) 03/22/23 22:31 Urine Color Dark yellow (Yellow) 03/22/23 19:20 Urine Appearance Sl hazy (CLEAR) A 03/22/23 19:20 Urine pH 5 (5-7) 03/22/23 19:20 Ur Specific [place] 1.030 (1.005-1.030) 03/22/23 19:20 Urine Protein Neg (Negative) 03/22/23 19:20 Urine Glucose (UA) Norm (Normal) 03/22/23 19:20 Urine Ketones 1+ (Negative) H 03/22/23 19:20 Urine Blood 2+ (Negative) H 03/22/23 19:20 Urine Nitrate Negative (Negative) 03/22/23 19:20 Urine Bilirubin Neg (Negative) 03/22/23 19:20 Urine Urobilinogen 1 mg/dL (Negative) H 03/22/23 19:20 Ur Leukocyte Esterase Negative (Negative) 03/22/23 19:20 Urine RBC 5-10 /hpf (0-2) H 03/22/23 19:20 Urine WBC 5-10 /hpf (0-5) H 03/22/23 19:20 Ur Squamous Epith Cells 0-4 /hpf (0-5) H 03/22/23 19:20 Ur Transition Epith Cell 0-4 /hpf 03/22/23 19:20 Other Crystals Ca carbonate 10-15 /hpf 03/22/23 19:20 Amorphous Sediment Trace /hpf 03/22/23 19:20 Urine Bacteria 1+ /hpf (NONE) H 03/22/23 19:20 Hyaline Casts 40-55 /lpf H 03/22/23 19:20 Fine Granular Casts 5-10 /lpf H 03/22/23 19:20 Urine Mucus 1+ /hpf 03/22/23 19:20 Fluid Color Pale yellow 03/28/23 11:00 Fluid Appearance Cloudy 03/28/23 11:00 Fluid WBC 1470 /uL 03/28/23 11:00 Fluid RBC 3.000 10^3/uL 03/28/23 11:00 Fld Polynuclear WBCs # 0.192 03/28/23 11:00 Fld Polynuclear WBCs % 13.100 % 03/28/23 11:00 Fl Mononucl WBCs #(Auto) 1.278 03/28/23 11:00 Fl Mononuclear % Auto 86.900 % 03/28/23 11:00 Fld Crystal Laterality Ascites 03/28/23 11:00 Fluid Total Protein 4.4 g/dL 03/28/23 11:00 Fluid Albumin 2.4 g/dL 03/28/23 11:00 Fluid Amylase 28 U/L 03/28/23 11:00 C. difficile Tox (PCR) Cancelled 03/26/23 05:30 Vitals Last Vital Signs Temp 97.7 F 03/29/23 11:29 Pulse 83 03/29/23 11:29 Resp 18 03/29/23 11:29 BP 128/74 03/29/23 11:29 Pulse Ox 94 03/29/23 11:29 O2 Del Method Room Air 03/29/23 11:29 O2 Flow Rate 2 03/27/23 20:00 Discharge Plan Discharge Patient Disposition: Home Condition: Stable Prescriptions: New ciprofloxacin HCl 500 mg tablet 500 mg PO BID 7 Days Qty: 14 0RF Continued aspirin [Adult Low Dose Aspirin] 81 mg tablet,delayed release (DR/EC) 81 mg PO BEDTIME ondansetron 4 mg tablet,disintegrating 4 mg PO Q8H PRN (Reason: nausea and vomiting) Qty: 30 0RF Hold Instructions: do not take with reglan zinc gluconate 50 mg tablet 50 mg PO DAILY@12 coenzyme Q10 [Co Q-10] 100 mg capsule 100 mg PO QPM amlodipine 2.5 mg tablet 2.5 mg PO DAILY Qty: 90 3RF oxycodone 5 mg tablet 5 mg PO TID PRN (Reason: pain) 30 Days Qty: 90 0RF cholecalciferol (vitamin D3) [Vitamin D3] 125 mcg (5,000 unit) Tablet 125 mcg PO DAILY@12 metformin 500 mg tablet 500 mg PO BID allopurinol 100 mg tablet 100 mg PO BEDTIME Collagen Peptides Powder 2 sc PO DAILY Rx Instructions: 2 scoops mixed in coffee every morning atorvastatin 40 mg tablet 40 mg PO BEDTIME omeprazole 40 mg capsule,delayed release(DR/EC) 40 mg PO DAILY Held carvedilol 12.5 mg tablet 12.5 mg PO BID Qty: 180 3RF Hold Instructions: see pcp Discontinued diclofenac sodium 75 mg tablet,delayed release (DR/EC) 75 mg PO BID PRN (Reason: gout pain) Qty: 60 3RF lisinopril 40 mg tablet 40 mg PO QAM Discharge Orders: Discharge Order (Routine); Ordered 03/29/23 Ordered By: Yareli Gray Referrals: Bro Velazquez MD [Referring] - 7-10 days (referral sent We have notified your physician's clinic of the need for a follow-up appointment to be scheduled. If you have not heard from them within the next 2 business days, please call them directly. ) Dayday Cerda MD [Primary Care Provider] - 04/05/23 12:50 pm Discharge Diet: Full LIquid Discharge Activity: Resume usual activity Patient Instructions: Ciprofloxacin (By mouth) (Cipro), Ascites (ED), Paracentesis (GEN), GI Discharge Instructions, Opioid Safety Discharge Attestations Time Spent in Discharge Care*: greater than 30 min Quality Metrics Clinical Quality Measures [ No reported AMI, CVA or VTE this stay] Coding Level of Care Code 97781 Total time (in minutes) for Discharge: 35 Diagnoses Thickened endometrium R93.89
[2023-03-29 12:46] VITALS: BP 128/74; PULSE 83; RESP 18; TEMP 36.5; O2SAT 94
[2023-03-31 09:05] LABS: Clostridium Difficile PCR NOT DETECTED (NOT DETECTED)
== END 2023-03-29 12:47 | disposition home or self-care (01) | DRG 987 ==
LOC: ER 19:36 → MEDSURG 21:29
PROVIDERS: Emergency Medicine; Student in an Organized Health Care Education/Training Program; Surgery; Admitting Provider Family Medicine; Emergency Provider Physician Assistant; PCP Family Medicine; Visit Provider Internal Medicine
PROC: 0DJ08ZZ Inspection of Upper Intestinal Tract, Via Natural or Artificial Opening Endoscopic (ICD-10-PCS; CPT 43235; principal; 2023-03-26 08:00)
PROC: 0DJD8ZZ Inspection of Lower Intestinal Tract, Via Natural or Artificial Opening Endoscopic (ICD-10-PCS; CPT 45378; 2023-03-26 08:00)
DX: N17.9 Acute kidney failure, unspecified (principal); K65.2 Spontaneous bacterial peritonitis; E87.1 Hypo-osmolality and hyponatremia; E87.20 Acidosis, unspecified; I85.00 Esophageal varices without bleeding; R18.8 Other ascites; C78.6 Secondary malignant neoplasm of retroperitoneum and peritoneum; E86.0 Dehydration; E87.5 Hyperkalemia; K44.9 Diaphragmatic hernia without obstruction or gangrene; K64.8 Other hemorrhoids; K57.30 Diverticulosis of large intestine without perforation or abscess without bleeding; K82.8 Other specified diseases of gallbladder; E11.9 Type 2 diabetes mellitus without complications; I25.10 Atherosclerotic heart disease of native coronary artery without angina pectoris; Z95.5 Presence of coronary angioplasty implant and graft; E78.5 Hyperlipidemia, unspecified; I10 Essential (primary) hypertension; R19.7 Diarrhea, unspecified; C54.1 Malignant neoplasm of endometrium; R59.0 Localized enlarged lymph nodes
CPT/HCPCS: 36415; 36416; 43239; 45378; 49083; 51702; 71045; 71250; 74018; 74176; 76705; 76770; 80048; 80053; 80061; 80503; 81001; 82042; 82150; 82274; 82550; 82962; 82977; 83036; 83605; 83630; 83690; 83735; 84100; 84145; 84157; 84443; 84484; 85025; 86140; 86304; 87015; 87045; 87070; 87075; 87116; 87177; 87205; 87206; 87209; 87427; 87449; 87493; 87801; 88112; 88305; 88342; 89050; 93005; 96361; 96372; 96374; 99285; C9113; J0696; J1170; J1644; J1815; J2270; J2405; J2550; J2704; J2765; J3490; J7030; Q3014

== ENCOUNTER 2023-03-30 21:27 | Emergency (ER) | payer MEDICARE, BC, SELFPAY ==
--- NOTE | 2023-03-30 21:28 | XRR_ITS ---
PROCEDURE INFORMATION: Exam: XR Chest Exam date and time: 03/30/2023 9:42 PM Age: 77 years old Clinical indication: Pain; Patient HX: C/O chest pressure/ tightness. Rates 7/10. Stents 20 yrs ago. TECHNIQUE: Imaging protocol: Radiologic exam of the chest. Views: 1 view. COMPARISON: CR (CHEST, ) 03/25/2023 5:19 PM FINDINGS: Lungs: Minor bibasilar atelectasis is unchanged from 03/25/2023. Mild elevation of the left hemidiaphragm is stable. Pleural spaces: Unremarkable. No pleural effusion. No pneumothorax. Heart/Mediastinum: Unremarkable. No cardiomegaly. Bones/joints: Unremarkable. XR/XR chest 1V portable [id number] IMPRESSION: No acute plain radiographic cardiopulmonary abnormality.
--- NOTE | 2023-03-30 21:32 | ECG_ITS ---
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 Measurements Intervals [place] Rate: 99 P: 27 AK: 151 QRS: -2 QRSD: 76 T: 50 QT: 315 QTc: 406 Interpretive Statements SINUS RHYTHM POSSIBLE ANTERIOR MYOCARDIAL INFARCTION , PROBABLY OLD [30 ms Q WAVE IN V3/V4, OR R < 0.2 mV IN V4] Compared to ECG 03/22/2023 17:46:55 Myocardial infarct finding now present Sinus bradycardia no longer present Electronically Signed On 04-02-2023 23:21:01 ROCK SPLITTER by Donnie Lopez M.D. [email or web address]
[2023-03-30 21:33] VITALS: BP 153/78; PULSE 100; RESP 18; TEMP 36.3; O2SAT 94
--- NOTE | 2023-03-30 21:41 | ED_ITS ---
HPI - Chest Pain 2 General: Chief Complaint: Chest Pain Stated Complaint: chest pressure Time Seen by Provider: 03/30/23 21:28 History of Present Illness: 77-year-old female comes in today for co mplaints of chest discomfort. Patient appears nontoxic. Patient has recent been released from the hospital on Tuesday of this week after having been admitted for acute kidney injury due to dehydration. 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 Patient is scheduled to follow-up with women's health oncology tomorrow in [place]. Patient other medical concerns including high blood pressure, diabetes mellitus and stent placement 20 years ago. Patient reports some light bleeding but only notices it when she wipes after urinating. Review of Systems 2 General: Reports: 10 or more systems reviewed and unremarkable except in HPI and below PFSH ED 2 PFSH: Medical History Back pain Hypertension Dyslipidemia Diabetes mellitus CAD (coronary artery disease) Surgical History S/P coronary artery stent placement Family History Other Cancer Diabetes Myocardial infarction Physical Exam 2 Const: COMMON NORMALS: alert HENMT: COMMON NORMALS: normocephalic HEAD & SCALP: normocephalic Neck/C-Spine: COMMON NORMALS: full ROM Chest: COMMONS NORMALS: normal palpation of entire chest wall Resp: COMMON NORMALS: normal respiratory effort and clear to auscultation bilaterally AUSCULTATION: clear to auscultation bilaterally Cardio: COMMON NORMALS: regular rate and regular rhythm RATE: regular rate RHYTHM: regular rhythm GI: COMMON NORMALS: Soft to palpation PALPATION: Yes Soft to palpation : COMMON NORMALS: Yes no CVA tenderness BLADDER/KIDNEY EXAM: Yes no CVA tenderness Back/Pelvis: COMMON NORMALS: no CVA tenderness Neuro: SENSORIUM/ORIENTATION: Yes alert Skin: COMMON NORMALS: turgor normal GENERAL SKIN EXAM: turgor normal Course 2 Vital Signs: Vital signs: Vital Signs Temperature 97.3 F L 03/30/23 21:33 Pulse Rate 95 03/30/23 22:34 Respiratory Rate 25 H 03/30/23 22:34 Blood Pressure 136/64 03/30/23 22:34 Pulse Oximetry 95 03/30/23 22:34 Oxygen Delivery Me thod Room Air 03/30/23 22:34 MDM - Chest Pain Medical Decision Making 77-year-old female comes in today with chest pressure. Patient appears nontoxic. Respirations are even lungs are clear to auscultation. Skin is warm and dry. Patient has 2+ pitting edema to the lower extremity. Vital signs are normal except for some mild elevation of blood pressure 153. Differential diagnosis includes not limited to anxiety, ACS, CHF. Patient had increased white blood cell count 15,000. Urinalysis had a large amount of white blood cells. CMP was unremarkable. Chest x-ray was normal. No significant change in troponin from prior exams. Patient will be treated with ceftriaxone 1 g x 1 and continued on cephalexin p.o. for the next 7 days. Encourage fluids rest and follow-up with primary care. Lab Data 03/30/23 21:43 03/30/23 21:43 Radiology Impressions Chest X-Ray 03/30/23 21:28 IMPRESSION: No acute plain radiographic cardiopulmonary abnormality. Laboratory Results WBC 15.41 10^3/uL (3.29-11.43) H 03/30/23 21:43 RBC 4.69 10^6/uL (3.85-5.65) 03/30/23 21:43 Hgb 12.70 g/dL (11.27-16.99) 03/30/23 21:43 Hct 38.6 % (36-47) 03/30/23 21:43 MCV 82.3 fl (85-98) L 03/30/23 21:43 MCH 27.1 pg (27-33) 03/30/23 21:43 MCHC 32.9 g/dL (30-55) 03/30/23 21:43 RDW 14.9 % (12.1-15.1) 03/30/23 21:43 Plt Count 359 10^3/cmm (157-399) 03/30/23 21:43 MPV 9.8 fL (7.4-10.4) 03/30/23 21:43 Neut % (Auto) 82.1 % 03/30/23 21:43 Lymph % (Auto) 6.4 % 03/30/23 21:43 [place] % (Auto) 10.4 % 03/30/23 21:43 Eos % (Auto) 0.3 % 03/30/23 21:43 Baso % (Auto) 0.4 % 03/30/23 21:43 Neut # (Auto) 12.67 10^3/uL (1.8-7.7) H 03/30/23 21:43 Lymph # (Auto) 1.0 10^3/uL (0.8-4.8) 03/30/23 21:43 [place] # (Auto) 1.6 10^3/uL (0.2-0.9) H 03/30/23 21:43 Eos # (Auto) 0.0 10^3/uL (0.0-0.8) 03/30/23 21:43 Baso # (Auto) 0.1 10^3/uL (0.0-0.1) 03/30/23 21:43 Nucleated RBC % (auto) 0 % 03/30/23 21:43 Nucleated RBCs # 0.0 /100WBC 03/30/23 21:43 PT 15.40 SECONDS (12.1-14.9) H 03/30/23 21:43 INR 1.18 (0.8-1.2) 03/30/23 21:43 APTT 28.3 SECONDS (23.9-36.7) 03/30/23 21:43 Sodium 135 mmol/L (136-145) L 03/30/23 21:43 Potassium 5.1 mmol/L (3.5-5.1) 03/30/23 21:43 Chloride 100 mmol/L (98-107) 03/30/23 21:43 Carbon Dioxide 20 mmol/L (22-29) L 03/30/23 21:43 Anion Gap 20.1 (5-19) H 03/30/23 21:43 BUN 19 mg/dL (8-23) 03/30/23 21:43 Creatinine 0.8 mg/dL (0.5-0.9) 03/30/23 21:43 GFR Calculation Not Reportable 03/30/23 21:43 Glucose 117 mg/dL (65-115) H 03/30/23 21:43 Calculated Osmolality 283 mOsm/kg (285-295) L 03/30/23 21:43 Calcium 8.2 mg/dL (8.5-10.5) L 03/30/23 21:43 Total Bilirubin 0.2 mg/dL (0.15-1.2) 03/30/23 21:43 AST 18 U/L (0-32) 03/30/23 21:43 ALT 8 U/L (0-33) 03/30/23 21:43 Alkaline Phosphatase 75 U/L (35-105) 03/30/23 21:43 Troponin T Baseline 25 ng/L (0-10) H 03/30/23 21:43 NT-Pro-B Natriuret Pep 311 pg/mL (0-450) 03/30/23 21:43 Total Protein 4.8 g/dL (6.6-8.7) L 03/30/23 21:43 Albumin 2.5 g/dL (3.5-5.2) L 03/30/23 21:43 Globulin 2.3 g/dL (1.3-4.6) 03/30/23 21:43 Lipase 32 U/L (13-60) 03/30/23 21:43 Urine Color Dark yellow (Yellow) 03/30/23 22:22 Urine Appearance Cloudy (CLEAR) A 03/30/23 22:22 Urine pH 5 (5-7) 03/30/23 22:22 Ur Specific [place] 1.025 (1.005-1.030) 03/30/23 22:22 Urine Protein 1+ (Negative) H 03/30/23 22:22 Urine Glucose (UA) Norm (Normal) 03/30/23 22:22 Urine Ketones 1+ (Negative) H 03/30/23 22:22 Urine Blood 3+ (Negative) H 03/30/23 22:22 Urine Nitrate Negative (Negative) 03/30/23 22:22 Urine Bilirubin 1+ (Negative) H 03/30/23 22:22 Urine Urobilinogen Neg mg/dL (Negative) 03/30/23 22:22 Ur Leukocyte Esterase 1+ (Negative) H 03/30/23 22:22 Urine RBC 80-100 /hpf (0-2) H 03/30/23 22:22 Urine WBC 40-55 /hpf (0-5) H 03/30/23 22:22 Ur Squamous Epith Cells None /hpf (0-5) 03/30/23 22:22 Amorphous Sediment Not Reportable 03/30/23 22:22 Urine Bacteria 3+ /hpf (NONE) H 03/30/23 22:22 Coarse Granular Casts 0-4 /lpf H 03/30/23 22:22 Urine Mucus 2+ /hpf 03/30/23 22:22 All radiology interpretation(s) finalized by discharge Discharge Plan Discharge Patient Disposition: Home Clinical Impression: Acute UTI Chest pain Qualifiers: Chest pain type: unspecified Qualified Code(s): R07.9 - Chest pain, unspecified Condition: Stable Prescriptions: New cephalexin 250 mg/5 mL suspension for reconstitution 250 mg PO Q6H 7 Days Qty: 140 0RF No Action aspirin [Adult Low Dose Aspirin] 81 mg tablet,delayed release (DR/EC) 81 mg PO BEDTIME ondansetron 4 mg tablet,disintegrating 4 mg PO Q8H PRN (Reason: nausea and vomiting) Qty: 30 0RF Hold Instructions: do not take with reglan zinc gluconate 50 mg tablet 50 mg PO DAILY@12 coenzyme Q10 [Co Q-10] 100 mg capsule 100 mg PO QPM amlodipine 2.5 mg tablet 2.5 mg PO DAILY Qty: 90 3RF carvedilol 12.5 mg tablet 12.5 mg PO BID Qty: 180 3RF Hold Instructions: see pcp oxycodone 5 mg tablet 5 mg PO TID PRN (Reason: pain) 30 Days Qty: 90 0RF cholecalciferol (vitamin D3) [Vitamin D3] 125 mcg (5,000 unit) Tablet 125 mcg PO DAILY@12 metformin 500 mg tablet 500 mg PO BID allopurinol 100 mg tablet 100 mg PO BEDTIME Collagen Peptides Powder 2 sc PO DAILY Rx Instructions: 2 scoops mixed in coffee every morning atorvastatin 40 mg tablet 40 mg PO BEDTIME omeprazole 40 mg capsule,delayed release(DR/EC) 40 mg PO DAILY ciprofloxacin HCl 500 mg tablet 500 mg PO BID 7 Days Qty: 14 0RF Discharge Orders: Discharge ED (Routine); Ordered 03/30/23 Ordered By: Lorne Padilla Referrals: Dayday Cerda MD [Primary Care Provider] - Discharge Diet: Usual diet Discharge Activity: Increase activity as tolerated Patient Instructions: Urinary Tract Infection in Women (DC) Activity Restrictions/Additional Instructions: Continue with routine care. Follow-up with primary care in 1 week for recheck. Return to ED for new concerns. Coding Level of Care Code ED Citizenship Instructor for Claudia Dover
[2023-03-30 21:49] LABS: Basophils # 0.1 10^3/uL (0.0-0.1); Basophils % 0.4 %; Eosinophils % 0.3 %; Hematocrit 38.6 % (36-47); Lymphocytes % 6.4 %; Mean Corpuscular HGB Conc 32.9 g/dL (30-55); Mean Corpuscular Hemoglobin 27.1 pg (27-33); Mean Corpuscular Volume 82.3 fl (85-98); Mean Platelet Volume 9.8 fL (7.4-10.4); Monocytes # 1.6 10^3/uL (0.2-0.9); Monocytes % 10.4 %; Neutrophils # 12.67 10^3/uL (1.8-7.7); Neutrophils % 82.1 %; Nucleated Red Blood Cells % 0 %; Platelet Count 359 10^3/cmm (157-399); Red Blood Count 4.69 10^6/uL (3.85-5.65); Red Cell Distribution Width 14.9 % (12.1-15.1); White Blood Count 15.41 10^3/uL (3.29-11.43)
[2023-03-30 21:53] VITALS: BP 153/78; PULSE 99; RESP 18; O2SAT 94
[2023-03-30 22:03] LABS: INR 1.18 (0.8-1.2); Partial Thromboplastin Time 28.3 SECONDS (23.9-36.7)
[2023-03-30 22:10] LABS: Troponin(5th) Baseline 25 ng/L (0-10)
[2023-03-30 22:19] LABS: Alanine Aminotransferase 8 U/L (0-33); Albumin Level 2.5 g/dL (3.5-5.2); Alkaline Phosphatase 75 U/L (35-105); Aspartate Amino Transferase 18 U/L (0-32); Blood Urea Nitrogen 19 mg/dL (8-23); Calcium 8.2 mg/dL (8.5-10.5); Carbon Dioxide 20 mmol/L (22-29); Chloride 100 mmol/L (98-107); Globulin 2.3 g/dL (1.3-4.6); Glucose 117 mg/dL (65-115); Lipase 32 U/L (13-60); NT Pro B Type Natriuretic Pept 311 pg/mL (0-450); Osmolality Calculated 283 mOsm/kg (285-295); Sodium 135 mmol/L (136-145); Total Bilirubin 0.2 mg/dL (0.15-1.2); Total Protein 4.8 g/dL (6.6-8.7)
[2023-03-30 22:31] LABS: Anion Gap 20.1 (5-19); Potassium 5.1 mmol/L (3.5-5.1)
[2023-03-30 22:34] VITALS: BP 136/64; PULSE 95; RESP 25; O2SAT 95
[2023-03-30 22:37] LABS: Add Urine Microscopic? YES; Bilirubin Urine 1+ (Negative); Blood Urine 3+ (Negative); Glucose Urine UA Norm (Normal); Ketones Urine 1+ (Negative); Leukocyte Esterase Urine 1+ (Negative); Nitrate Urine Negative (Negative); Protein Urine 1+ (Negative); Specific Gravity, Urine 1.025 (1.005-1.030); Urine Appearance Cloudy (CLEAR); Urine Color Dark Yellow (Yellow); Urobilinogen Urine Neg (Negative); pH Urine 5 (5-7)
[2023-03-30 22:39] LABS: Add Urine Culture? Yes; Bacteria Urine 3+ /hpf; Coarse Granular Casts Urine 0-4 /lpf; Mucus Urine 2+ /hpf; RBC Urine 80-100 /hpf (0-2); WBC Urine 40-55 /hpf (0-5)
[2023-03-30] MEDS: cefTRIAXone 1,000 MG in sodium chloride 0.9% (plus) 50 ML 100 MG IV (22:59)
[2023-03-30 23:09] VITALS: BP 114/65; PULSE 93; RESP 21; O2SAT 95
[2023-03-30 23:23] VITALS: BP 132/64; PULSE 95; RESP 18; O2SAT 95
== END 2023-03-30 23:23 | disposition home or self-care (01) ==
PROVIDERS: Emergency Provider Nurse Practitioner Family; PCP Family Medicine
DX: N39.0 Urinary tract infection, site not specified (principal); R07.9 Chest pain, unspecified; Z79.82 Long term (current) use of aspirin; Z79.84 Long term (current) use of oral hypoglycemic drugs; I10 Essential (primary) hypertension; E78.5 Hyperlipidemia, unspecified; E11.9 Type 2 diabetes mellitus without complications; I25.10 Atherosclerotic heart disease of native coronary artery without angina pectoris
CPT/HCPCS: 71045; 80053; 81001; 83690; 83880; 84484; 85025; 85610; 85730; 87086; 93005; 96365; 99285; J0696